=== PATIENT | female | born 1955 | race Caucasian/White ===

== ENCOUNTER 2023-11-28 10:51 | Outpatient (OUT) | payer MEDICARE, SELFPAY ==
--- NOTE | 2023-11-28 10:59 | MM_ITS ---
Patient Name: KWAME AMAYA MR#: [id number] : 1955 Exam Date: 11/28/2023 Ordering Doctor: DR Emilee Mobley M.D. RADIOLOGY REPORT PROCEDURE: MM TOMOSYNTHESIS SCREENING BI COMPARISON: None. INDICATIONS: Screening Calculator Name NCI Breast Cancer Risk Assessment Tool 5 Year Breast Cancer Risk 1.70% Lifetime Breast Cancer Risk 5.90% Personal Breast Cancer No Personal Ovarian Cancer No Treatments None Family Cancers None LOCATION: [facility] BREAST COMPOSITION: There are scattered areas of fibroglandular density. FINDINGS: DIAGNOSTIC CATEGORY 0--INCOMPLETE: NEED ADDITIONAL IMAGING EVALUATION. Breasts are medium in size. RIGHT BREAST: Single area focal asymmetry upper outer quadrant, mid posterior breast. LEFT BREAST: 2 areas of focal asymmetry upper outer quadrant, mid and posterior breast. Spot compression of the 3 areas of asymmetry are recommended, this likely represents asymmetric fibroglandular tissue. If these areas do not compress out, ultrasound follow-up would be required. RECOMMENDATIONS: ADDITIONAL MAMMOGRAPHIC VIEWS REQUIRED: BILATERAL BREASTS - spot compression views ULTRASOUND: BILATERAL BREASTS PLEASE NOTE: A NORMAL MAMMOGRAM DOES NOT EXCLUDE THE POSSIBILITY OF BREAST CANCER. A CLINICALLY SUSPICIOUS PALPABLE LUMP SHOULD BE BIOPSIED. Dictated by: David Barron MD on 11/28/2023 at 11:42 Approved by: David Barron MD on 11/28/2023 at 11:44
== END 2023-11-28 10:52 | disposition home or self-care (01) ==
LOC: MAMMO 10:54
PROVIDERS: PCP Family Medicine; Visit Provider Family Medicine
DX: Z12.31 Encounter for screening mammogram for malignant neoplasm of breast (principal); R92.8 Other abnormal and inconclusive findings on diagnostic imaging of breast
CPT/HCPCS: 77063; 77067

== ENCOUNTER 2023-12-18 13:25 | Outpatient (OUT) | payer MEDICARE, SELFPAY ==
--- NOTE | 2023-12-18 13:30 | US_ITS ---
Patient Name: KWAME AMAYA MR#: [id number] : 1955 Exam Date: 12/18/2023 Ordering Doctor: DR Emilee Mobley M.D. RADIOLOGY REPORT PROCEDURE: MM DIAGNOSTIC MAMMO BI, 12/18/2023, 13:31 US BREAST BI LIMITED, 12/18/2023, 14:24 COMPARISON: MM TOMOSYNTHESIS SCREENING BI, 11/28/2023. INDICATIONS: Abnormal mammogram of both breasts R92.8 Calculator Name NCI Breast Cancer Risk Assessment Tool 5 Year Breast Cancer Risk 1.70% Lifetime Breast Cancer Risk 5.90% Personal Breast Cancer No Personal Ovarian Cancer No Treatments None Family Cancers None LOCATION: [facility] BREAST COMPOSITION: There are scattered areas of fibroglandular density. FINDINGS: DIAGNOSTIC CATEGORY 2--BENIGN FINDING: RIGHT BREAST: Spot magnification views demonstrate persistence of asymmetric density within the posterior upper-outer quadrant suspected to represent residual fibroglandular tissue. Ultrasound evaluation demonstrates normal appearing fibroglandular tissue within the upper-outer quadrant. LEFT BREAST: Spot magnification views demonstrate persistence of asymmetric density within the posterior upper-outer quadrant suspected to represent residual fibroglandular tissue. Ultrasound evaluation demonstrates normal appearing fibroglandular tissue within the upper-outer quadrant. RECOMMENDATIONS: ROUTINE MAMMOGRAM AND CLINICAL EVALUATION IN 12 MONTHS. PLEASE NOTE: A NORMAL MAMMOGRAM DOES NOT EXCLUDE THE POSSIBILITY OF BREAST CANCER. A CLINICALLY SUSPICIOUS PALPABLE LUMP SHOULD BE BIOPSIED. Dictated by: Jacob Gray M.D. on 12/18/2023 at 16:19 Approved by: Jacob Gray M.D. on 12/18/2023 at 16:23
== END 2023-12-18 13:26 | disposition home or self-care (01) ==
LOC: MAMMO 13:25
PROVIDERS: PCP Family Medicine; Visit Provider Family Medicine
DX: R92.8 Other abnormal and inconclusive findings on diagnostic imaging of breast (principal)
CPT/HCPCS: 76642; 77066

== ENCOUNTER 2024-02-11 11:36 | Outpatient (OUT) | payer MEDICARE, SELFPAY ==
--- NOTE | 2024-02-11 11:41 | XR_ITS ---
The [address] [address] Patient Name: KWAME AMAYA MRN: [id number] date: 1955 Sex: F Assigned Patient Location: [facility] Current Patient Location: Accession/Order Number: [id number] Exam Date: 02/11/2024 11:48 Report Date: 02/12/2024 06:29 At the request of: ROBERT ARRIETA Procedure: XR thoracic spine 3V EXAMINATION: XR thoracic spine 3V HISTORY: Thoracic Radiculitis M54.14 ; left chest and upper back pain for 5 months; no known injury COMPARISON: No relevant comparison available. FINDINGS: BONES: No significant spondylosis, scoliosis, fracture, or visible bony lesion. DISC SPACES: No significant disc height narrowing, subluxation, or endplate abnormality. PARASPINOUS: Negative. No paraspinous abnormality is seen. OTHER: Opacities within posterior lung base with loss of one of the posterior costophrenic angles. XR/XR thoracic spine 3V IMPRESSION: 1. No acute bone abnormality. Minimal degenerative changes. 2. Loss of one of the posterior costophrenic angles on the lateral view of uncertain etiology; infiltrates versus mass versus elevated diaphragm. Consider PA and lateral chest radiographs for further evaluation. Electronically authenticated by: NGOC BARBA Date: 02/12/2024 06:29
--- OUTSIDE RECORDS SUMMARY | 2024-02-11 11:42 | XMS_ITS | CCD ---
Author Organization [facility] Care Team Providers Care Network Professional Name Role Phone Gideon VELASQUEZ Attending Unavailable MEENAKSHI, DR EMILEE Ohara Primary Care Unavailable PAY, DR TAYLOR Admitting Unavailable PAY, DR TAYLOR Attending Unavailable PAY, DR TAYLOR Consulting Unavailable MD Emilee Arrieta Primary Care Provider [phone] MD Emilee Arrieta Attending Provider [phone] Allison Iglesias Unavailable MD Emilee Arrieta Primary Care Provider [phone] YAYA Iglesias Attending Provider MD Emilee Arrieta Primary Care Provider YAYA Iglesias Attending Provider Emilee Arrieta Primary Care Unavailable Emilee Arrieta Admitting Unavailable Emilee Arrieta Attending Unavailable Emilee Arrieta Primary Care Unavailable Allison Iglesias Attending Unavailable Allison Iglesias Admitting Unavailable Emilee Arrieta Primary Care Unavailable Allison Iglesias Attending Unavailable Allison Iglesias Admitting Unavailable Allergies Allergy Classification Reported Allergen(s) Allergy Type Date of Onset Reaction(s) Facility (1 source) Contrast media; Translations: [Contrast Dye] Propensity to adverse reactions (disorder) [facility] Repository (1 source) Iodine (And Iodine Containting Drugs) Drug allergy (disorder) [facility] Repository Medications Current Medications Medication Drug Class(es) Dates Sig (Normalized) Sig (Original) amLODIPine 2.5 mg oral tablet (6 sources) Dihydropyridine Calcium Channel Kav[employer] Start: 12-01-2023 take 1 tablet by mouth once daily Amlodipine Active 0 .ROUTE .COMPLEX 90 December 01, 2023 3:05pm TAKE 1 TABLET BY MOUTH EVERY DAY Start: 10-24-2023 End: 12-01-2023 take 1 tablet by mouth once daily Amlodipine Discontinued 1 TAB PO Daily October 24, 2023 12:00am December 01, 2023 3:05pm FreeTextSig: TAKE 1 TABLET BY MOUTH EVERY DAY; Note: Source Status: Start; Refills: 1; Qty: 90 Tablet; Provider: Meenakshi Hebert ( ) take 1 tablet by robel th once daily amLODIPine Besylate 2.5 MG TAKE 1 TABLET BY MOUTH EVERY DAY for 90 Active aspirin 81 mg chewable tablet (8 sources) Platelet Aggregation Inhibitor, Nonsteroidal Anti-inflammatory Drug Start: 10-08-2023 Aspirin Active PO October 08, 2023 12:00am Start: 04-14-2023 take 1 tablet by robel th every twenty-four hours Aspirin 81 MG 1 tablet Orally Once a day for 90 days Apr, Active Start: 01-06-2023 take 1 tablet by mouth once da tree Aspirin 81 81 MG 1 tablet Orally Once a day for 30 days Dec, Active Start: 01-06-2023 take 1 tablet by robel th every twenty-four hours Aspirin 81 81 MG 1 tablet Orally Once a day for 30 days Dec, Active atorvastatin 20 mg oral tablet (12 sources) HMG-CoA Reductase Inhibitor Start: 10-08-2023 take 1 tablet by mouth once daily Atorvastatin Active 0 .ROUTE .COMPLEX 90 October 08, 2023 4:08pm TAKE 1 TABLET BY MOUTH EVERY DAY FOR 90 DAYS Start: 10-08-2023 End: 10-08-2023 Atorvastatin Discontinued MG PO October 08, 2023 12:00am October 08, 2023 4:08pm Start: 01-06-2023 take 1 tablet by robel th every twenty-four hours Atorvastatin Calcium 20 MG 1 tablet Orally Once a day for 90 days Apr, Active cilostazol 50 mg oral tablet (5 sources) Phosphodiesterase 3 Inhibitor Start: 10-24-2023 take 1 tablet by mouth twice daily 30 minutes after breakfast Cilostazol Active 50 MG PO Before breakfast and supper October 24, 2023 12:00am FreeTextSi tablet 30 minutes before or 2 hours after breakfast and dinner Orally Twice a day; Note: Source Status: Start; Refills: 3; Qty: 90 Tablet; Provider: Harris Cooper ( ) Start: 01-06-2023 take 1 tablet by robel th every twelve hours Cilostazol 50 MG 1 tablet 30 minutes before or 2 hours after breakfast and dinner Orally Twice a day for 30 days Dec, Active latanoprost 0.05 mg/ml ophthalmic solution (6 sources) Prostaglandin Analog Start: 01-22-2018 take 1 dose into the eye(s) once daily at bedtime Latanoprost Active 1 DOSE OPHTHALMIC Daily at bedtime January 22, 2018 12:00am lidocaine 0.05 mg/mg medicated patch (1 source) Antiarrhythmic, Amide Local Anesthetic Start: 02-11-2024 apply 1 dose topically once daily Lidocaine Active 2 PATCH TOPICAL Daily February 11, 2024 12:00am leave on most painful area for up to 12 hrs Completed/Discontinued Medications Medication Drug Class(es) Dates Sig (Normalized) Sig (Original) ofloxacin 3 mg/ml ophthalmic solution (6 sources) Quinolone Antimicrobial Start: 01-22-2018 End: 10-24-2023 take 1 dose into the eye(s) four times daily Ofloxacin Discontinued 1 DOSE OPHTHALMIC Four times daily January 22, 2018 12:00am October 24, 2023 1:30pm prednisoLONE acetate 10 mg/ml ophthalmic suspension (6 sources) Corticosteroid Start: 01-22-2018 End: 10-24-2023 take 1 dose into the eye(s) four times daily Prednisolone Acetate Discontinued 1 DOSE OPHTHALMIC Four times daily January 22, 2018 12:00am October 24, 2023 1:30pm pregabalin 50 mg oral capsule (2 sources) Start: 10-24-2023 End: 11-25-2023 take 1 capsule by mouth twice daily Pregabalin (Lyrica) 50 mg capsule Discontinued 50 MG PO Twice daily 60 October 24, 2023 12:00am November 25, 2023 11:50am valACYclovir 1000 mg oral tablet (4 sources) Herpesvirus Nucleoside Analog DNA Polymerase Inhibitor, Herpes Simplex Virus Nucleoside Analog DNA Polymerase Inhibitor, Herpes Zoster Virus Nucleoside Analog DNA Polymerase Inhibitor Start: 09-29-2023 End: 10-14-2023 Valacyclovir (Valtrex) 1 gram tablet Discontinued 1000 MG PO Every 8 hours September 29, 2023 12:00am October 14, 2023 9:26am Problems Active Problems Problem Classification Problem Date Documented Date Episodic/Chronic Anal and rectal conditions (5 sources) Other specified diseases of anus and rectum; Translations: [Rectal abscess] Onset: 05-10-2022 Episodic Anxiety disorders (1 source) Anxiety disorder; Translations: [Other specified anxiety disorders] Onset: 06-19-2016 Chronic Coronary atherosclerosis and other heart disease (1 source) Coronary atherosclerosis and other heart disease; Translations: [Atherosclerosis of [place] arteries of extremities with intermittent claudication, bilateral legs] Onset: 04-14-2023 Glaucoma (1 source) Unspecified glaucoma; Translations: [Unspecified glaucoma] Onset: 09-08-2015 Chronic Hemorrhoids (1 source) Hemorrhoids; Translations: [Unspecified hemorrhoids] Episodic Other aftercare (1 source) Other detention (current) drug therapy; Translations: [OTH DRY ROASTER CURRENT DRUG THERAPY] Onset: 05-13-2022 Episodic Other circulatory disease (1 source) Raynaud's syndrome without gangrene; Translations: [Raynaud's syndrome without gangrene] Chronic Other connective tissue disease (1 source) Neuralgia and neuritis, unspecified; Translations: [Neuralgia and neuritis, unspecified] Episodic Other injuries and conditions due to external causes (1 source) History of fall; Translations: [History of falling] Episodic Other nutritional; endocrine; and metabolic disorders (1 source) Body mass index less than 20; Translations: [Body mass index (BMI) 19.9 or less, adult] Episodic Other screening for suspected conditions (not mental disorders or infectious disease) (1 source) Mammography abnormal; Translations: [Other abnormal and inconclusive findings on diagnostic imaging of breast] 12-02-2023 Episodic Peripheral and visceral atherosclerosis (20 sources) Intermittent claudication; Translations: [Peripheral vascular disease, unspecified] Onset: 11-21-2022 Chronic Residual codes; unclassified (1 source) Procedure not done; Translations: [Procedure and treatment not carried out because of patient's decision for unspecified reasons] Episodic Spondylosis; intervertebral disc disorders; other back problems (2 sources) Thoracic radiculitis; Translations: [Radiculopathy, thoracic region] 02-11-2024 Episodic Substance-related disorders (11 sources) Smokes tobacco daily; Translations: [Nicotine dependence, unspecified, uncomplicated] Onset: 11-26-2018 Chronic Thyroid disorders (1 source) Non-toxic uninodular goiter; Translations: [Nontoxic single thyroid nodule] Onset: 12-08-2018 Chronic Viral infection (8 sources) Herpes zoster; Translations: [Zoster without complications] 10-14-2023 Episodic Past or Other Problems Problem Classification Problem Date Documented Da te Episodic/Chronic Nonspecific chest pain (1 source) Chest pain, unspecified; Translations: [Chest pain, unspecified] Onset: 07-09-2017 Episodic Unclassified (1 source) Routine general medical examination at health care facility; Translations: [Routine general medical examination at health care facility] Onset: 09-08-2015 Results Test Name Value Interpretation Reference Range Facil ity US ankle/arm indiceson 10-13 US ankle/arm indices [facility] [place] [address] [place] [address] Ultrasound Report Signed Patient: Ellie Montaño MR#: [id number] 899 : 1955 Acct:[id number] Age/Sex: 68 / F ADM Date: 10/14/23 Loc: [facility] Room: Type: [facility] Attending Dr: Allison Iglesias 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 Pressures at the right ankle are 131 using the posterior tibial artery, and 126 using the dorsalis pedis artery with ankle-brachial index of 1.08 1.04 . Pressures at the left ankle are 106 using the posterior tibial artery, and 98 with ankle-brachial index of 0.88 0.81 . Wave forms by plethysmography are normal.On the right and moderately blunted on the left US/US ankle/arm indices IMPRESSION: No hemodynamically significant peripheral vascular occlusive disease at rest in the right lower extremity. Mild to moderate peripheral vascular occlusive disease of the left lower extremity at rest. Impression dictated by: Mark Bray M.D.10/14/2023 9:33 AM Dictation Location: [place] [address] Tech: Abril Barbour Transcribed By: RUBY 10/14/23932 Dictated By: Mark Bray MD 10/14/23932 Signed By: 10/14/23932 [facility] US ankle/arm indiceson 04-14 US ankle/arm indices [facility] [place] [address] [place] [address] Ultrasound Report Signed Patient: Ellie Montaño MR#: [id number] 899 : 1955 Acct:[id number] Age/Sex: 67 / F ADM Date: 04/14/23 Loc: [facility] Room: Type: [facility] Attending Dr: Allison Iglesias [employer] MISTRESS-C Ordering Provider: Allison Iglesias APRN Date of Service: 04/14/23 US/US ankle/arm indices: I70.213 Copies to: Allison Iglesias APRN LOWER EXTREMITY SEGMENTAL ARTERIAL DOPSCAN (PVR) INDICATION: Known peripheral vascular occlusive disease PROCEDURE: Right arm blood pressure is 91 , left is 139 . Pressures at the right ankle are 145 using the posterior tibial artery, and 137 using the dorsalis pedis artery with ankle-brachial index of 1.04 0.99 . Pressures at the left ankle are 75 using the posterior tibial artery, and 53 with ankle-brachial index of 0.54 0.38 . Wave forms by plethysmography are strongly pulsatile right and moderate to severely left US/US ankle/arm indices IMPRESSION: Normal ankle-brachial index in the right lower extremity with no hemodynamically significant peripheral vascular occlusive disease at rest. Moderate to severe peripheral vascular occlusive disease in the left lower extremity at rest. Impression dictated by: [place] Bray M.D.04/14/2023 2:43 PM Dictation Location: [facility] Tech: Luda Yousif Transcribed By: RUBY 04/14/231442 Dictated By: [place] Bray MD 04/14/231441 Signed By: 04/14/231442 [facility] US arterial pvr rest Joanne US arterial pvr rest LE [facility] [place] [address] Ultrasound Report Signed Patient: Ellie Montaño MR#: [id number] 899 : 1955 Acct:[id number] Age/Sex: 67 / F ADM Date: 11/21/22 Loc: Room: Type: [facility] Attending Dr: Emilee Arrieta MD Ordering Provider: Emilee Arrieta MD Date of Service: 11/21/22 US/US arterial pvr rest LE: Claudication of calf muscles Copies to: Emilee Arrieta MD LOWER EXTREMITY SEGMENTAL ARTERIAL DOPSCAN (PVR) INDICATION: Cold feet, leg numbness PROCEDURE: Right arm blood pressure is 105 , left is 155 . Pressures throughout the right leg are 158 at the high thigh, 156 at the low thigh, 146 at the calf, 148 at the ankle using the posterior tibial artery and 146 at the ankle using the dorsalis pedis artery with ankle- brachial index of 0.94 0.95 . Pressures throughout the left leg are 154 at the high thigh, 98 at the low thigh, 100 at the calf, 70 at the ankle using the posterior tibial artery and 51 at the ankle using the dorsalis pedis artery with ankle-brachial index of 0.33 0.45 . Wave forms by plethysmography are biphasic in the left lower extremity and triphasic in the right lower extremity. US/US arterial pvr rest LE IMPRESSION: MODERATE PERIPHERAL ARTERIAL DISEASE OF THE LEFT LOWER EXTREMITY AT REST. THE PATIENT IS MOST LIKELY TO HAVE FEMOROPOPLITEAL DISEASE OF THE LEFT LOWER EXTREMITY. Impression dictated by: John Bell MD11/25/2022 2:52 PM Dictation Location: [place] [address] Tech: Hailey Haddad Transcribed By: RUBY 11/25/221451 Dictated By: John Bell MD 11/25/221450 Signed By: 11/25/22 145 [facility] ED Note-Physicianon 05-20-20 ED Note-Physician [id number]:[id number] Normal [facility] Vital Signs Date Time Vital Sign Value Performing Clinician Facility 02-11-2024 10:54-0400 Body height 162.56 cm [facility] 02-11-2024 10:54-0400 Body mass index (BMI) [Ratio] 19 kg/m2 [facility] 02-11-2024 10:54-0400 Body weight 50.34 kg [facility] 02-11-2024 10:54-0400 Diastolic blood pressure 74 mm[Hg] [facility] 02-11-2024 10:54-0400 Heart rate 115 /min [facility] 02-11-2024 10:54-0400 Systolic blood pressure 118 mm[Hg] [facility] 11-25-2023 11:44-0400 Body height 162.56 cm [facility] 11-25-2023 11:44-0400 Body mass index (BMI) [Ratio] 19.9 kg/m2 [facility] 11-25-2023 11:44-0400 Body weight 52.61 kg [facility] 11-25-2023 11:44-0400 Diastolic blood pressure 82 mm[Hg] [facility] 11-25-2023 11:44-0400 Heart rate 91 /min [facility] 11-25-2023 11:44-0400 Systolic blood pressure 130 mm[Hg] [facility] 10-24-2023 13:24-0400 Body height 162.56 cm MD Emilee Arrieta Work Phone: [facility] 10-24-2023 13:24-0400 Body mass index (BMI) [Ratio] 19.9 kg/m2 MD Emilee Arrieta Work Phone: [facility] 10-24-2023 13:24-0400 Body weight 52.67 kg MD Emilee Arrieta Work Phone: [facility] 10-24-2023 13:24-0400 Diastolic blood pressure 78 mm[Hg] MD Emilee Arrieta Work Phone: [facility] 10-24-2023 13:24-0400 Heart rate 110 /min MD Emilee Arrieta Work Phone: [facility] 10-24-2023 13:24-0400 SaO2% (BldA) [Mass fraction] 99 % MD Emilee Arrieta Work Phone: [facility] 10-24-2023 13:24-0400 Systolic blood pressure 132 mm[Hg] MD Emilee Arrieta Work Phone: [facility] 10-14-2023 09:23-0400 Body height 162.56 cm MD Emilee Arrieta Work Phone: [facility] 10-14-2023 09:23-0400 Body mass index (BMI) [Ratio] 19.7 kg/m2 MD Emilee Arrieta Work Phone: [facility] 10-14-2023 09:23-0400 Body temperature 98 [degF] MD Emilee Arrieta Work Phone: [facility] 10-14-2023 09:23-0400 Body weight 52.16 kg MD Emilee Arrieta Work Phone: [facility] 10-14-2023 09:23-0400 Diastolic blood pressure 82 mm[Hg] MD Emilee Arrieta Work Phone: [facility] 10-14-2023 09:23-0400 Heart rate 70 /min MD Emilee Arrieta Work Phone: [facility] 10-14-2023 09:23-0400 SaO2% (BldA) [Mass fraction] 97 % MD Emilee Arrieta Work Phone: [facility] 10-14-2023 09:23-0400 Systolic blood pressure 140 mm[Hg] MD Emilee Arrieta Work Phone: [facility] 04-14-2023 09:30-0400 Body height 165.1 cm Allison Iglesias Other [email or web address] [facility] [employer] Other 04-14-2023 09:30-0400 Body mass index (BMI) [Ratio] 17.47 kg/m2 Allison Iglesias Other [facility] Other 04-14-2023 09:30-0400 Body temperature 96.4 [degF] Allison Wildo Other [facility] Other 04-14-2023 09:30-0400 Body weight 47.63 kg Allison Wildo Other [facility] Other 04-14-2023 09:30-0400 Diastolic blood pressure 74 mm[Hg] Allison Wildo Other [facility] Other 04-14-2023 09:30-0400 SaO2% (BldA) [Mass fraction] 99 % Allison Wildo Other [facility] Other 04-14-2023 09:30-0400 Systolic blood pressure 110 mm[Hg] Allison Wildo Other [facility] Other 01-06-2023 13:30-0400 Body height 165.1 cm Allison Iglesias Other [facility] Other 01-06-2023 13:30-0400 Body mass index (BMI) [Ratio] 17.47 kg/m2 Allison Wildo Other [facility] Other 01-06-2023 13:30-0400 Body temperature 97.3 [degF] Allison Wildo Other [facility] Other 01-06-2023 13:30-0400 Body weight 47.63 kg Allison Wildo Other [facility] Other 01-06-2023 13:30-0400 Diastolic blood pressure 80 mm[Hg] Allison Iglesias Other [email or web address] [facility] Other 01-06-2023 13:30-0400 SaO2% (BldA) [Mass fraction] 99 % Allison Iglesias Other [facility] Other 01-06-2023 13:30-0400 Systolic blood pressure 122 mm[Hg] Allison Iglesias Other [facility] Other Encounters Encounter Date Encounter Type Care Provider Facility Start: 02-11-2024 End: 02-11-2024 ambulatory [facility] Work Phone: Start: 02-11-2024 End: 02-11-2024 Patient encounter procedure Pending [facility] To [facility] Work Phone: Start: 11-25-2023 End: 11-25-2023 Patient encounter procedure Pending [facility] To [facility] Work Phone: Start: 10-24-2023 End: 10-24-2023 ambulatory MD Emilee Arrieta Work Phone: [facility] Work Phone: Start: 10-24-2023 End: 10-24-2023 Patient encounter procedure MD Emilee Arrieta Work Phone: [facility] Work Phone: Start: 10-14-2023 End: 10-14-2023 ambulatory Emilee Arrieta Facility:[facility] Start: 10-14-2023 End: 10-14-2023 ambulatory MD Emilee Arrieta Work Phone: [facility] Work Phone: Start: 10-14-2023 End: 10-14-2023 Patient encounter procedure MD Emilee Arrieta Work Phone: [facility] Work Phone: Start: 10-08-2023 Non-patient / Non-visit MD Kristy Arrieta Work Phone: [facility]ending [facility] To [facility] [employer] Work Phone: Start: 04-14-2023 End: 04-14-2023 Patient encounter procedure Allison Harris Other [facility] Start: 04-14-2023 End: 04-14-2023 ambulatory Emilee Arrieta Facility:[facility] Start: 04-14-2023 End: 04-14-2023 ambulatory MD Emilee Arrieta Work Phone: [facility] [employer] Other Start: 01-06-2023 End: 01-06-2023 ambulatory Allison Iglesias Other [facility] [employer] Other Start: 01-06-2023 [facility] visit new patient Allison Healycameron lee [facility] Start: 01-06-2023 Telephone encounter Allison Macdonald PG Assistant [employer] Start: 11-21-2022 End: 11-21-2022 ambulatory Emilee Arrieta Facility:[facility] Start: 11-21-2022 End: 11-21-2022 ambulatory MD Emilee Arrieta Work Phone: [facility] Work Phone: Start: 11-21-2022 End: 11-21-2022 Patient encounter procedure MD Emilee Arrieta Work Phone: [facility] [place] Work Phone: Start: 05-24-2022 ambulatory Gideon VELASQUEZ Facility : [place] Start: 05-10-2022 End: 05-10-[address] EMILEE ARRIETA Facility: Start: 02-08-2022 Adult health examination Allison Harris Other [facility] Other Procedures Date Procedure Procedure Detail Performing Clinician Start: 10-14-2023 Ankle brachial press ure index MD Emilee Arrieta Work Phone: Start: 04-14-2023 Ankle brachial press ure index MD Emilee Arrieta Work Phone: Plan of Treatment Date Care Activity Detail Author Start: 11-21-2022 Pulse volume recorder pneumoplethysmography US arterial pvr rest [facility] XR Thoracic spine 3 Views [facility] Payers Date Payer Category Payer Self-pay [id number] 1958 Medicaid [id number] 1958 Unknown [id number] 1955 Unknown [id number] 1955 Unknown [id number] [id number] Unknown [id number] Unknown [id number] [id number] Unknown [id number] Social History Date Type Detail Facility Start: 01-22-2018 End: 10-14-2023 Tobacco smoking status IAIS Smoker (finding) [facility] Start: 1955 Sex Assigned At Female F [facility] Sex Assigned At Sex Assigned At Bir th [facility] Other Medical Equipment Procedure Code Equipment Code Equipment Original Text Equipment Identifier Dates Phacoemulsification of cataract with intraocular lens implantation LENS ACRYSOF IOL [id number] FDA Start: 01-22-2018 Phacoemulsification of cataract with intraocular lens implantation LENS ACRYSOF IOL [id number] FDA Start: 01-22-2018 Phacoemulsification of cataract with intraocular lens implantation LENS ACRYSOF IOL [id number] FDA Start: 01-22-2018 Phacoemulsification of cataract with intraocular lens implantation LENS ACRYSOF IOL [id number] FDA Start: 01-22-2018 Phacoemulsification of cataract with intraocular lens implantation LENS ACRYSOF IOL [id number] FDA Start: 01-22-2018 Phacoemulsification of cataract with intraocular lens implantation LENS ACRYSOF IOL [id number] FDA Start: 01-22-2018 Evaluation note 04-14-2023 Note Date & Type Note Facility 04-14-2023 Evaluation note Encounter Date Diagnosis Assessment Notes Apr, Current every day smoker (ICD-10 - F17.200) We discussed the health risks associated with tobacco smoking. She understands her risks and is motivated to quit. She is working on her smoking cessation. Apr, PAD (peripheral artery disease) (ICD-10 - I73.9) We reviewed her noninvasive arterial studies in the office today which do show some improvement with left MAGALYS improved to 0.54 from 0.45 about 3 months ago. She has been working on her walking program and has been taking the cilostazol, aspirin, and statin medications. Medication refills were sent to her pharmacy. She has noticed improvement in her symptoms and is able to walk 2-3 times further than she was 3 months ago prior to onset of thigh claudication. She denies any ischemic rest pain. She has no tissue loss. She is working on her smoking cessation. At this juncture, we will continue to follow her along and manage her medically and see her again in 6 months time with repeat noninvasive arterial studies. She knows to call us in the meantime with any issues or concerns whatsoever. Apr, Claudication (ICD-10 - I73.9) [facility] Other Evaluation note 01-06-2023 Note Date & Type Note Facility 01-06-2023 Evaluation note Encounter Date Diagnosis Assessment Notes Dec, Intermittent claudication (ICD-10 - I73.9) This patient complains of symptoms of claudication walking only about 50 yards prior to onset. She tells me this has been present for about 3 months now. She is not currently on any antiplatelet or statin therapy. We will get her started on this for good medical management of her PAD. We will also attempt use of Pletal to aid in relief of her claudication. We will get her started on working on her walking program as well. We will follow her up again in about 3 months time with repeat noninvasive arterial studies and see how she is doing. We reviewed the PAD handout and all questions were addressed. She verbalizes understanding of all discussion, agrees with plan, denies any questions. Dec, PAD (peripheral artery disease) (ICD-10 - I73.9) Dec, Current every day smoker (ICD-10 - F17.200) We discussed the health risks associated with tobacco smoking. Patient understands her risks and is motivated to quit. She has been working on smoking cessation and is down to about 5 cigarettes a day. [employer] Other Evaluation note Note Date & Type Note Facility Evaluation note No assessment information availa [facility] Work Phone: Evaluation note Note Date & Type Note Facility Evaluation note No Information [facility] [email or web address] Other Evaluation note Note Date & Type Note Facility Evaluation note Diagnosis Onset Date Current every day smoker acu te PAD (peripheral artery disease) acute [facility] Work Phone: Evaluation note Note Date & Type Note Facility Evaluation note Diagnosis Onset Date Current every day smoker acu te PAD (peripheral artery disease) acute Post herpetic neuralgia acut e [facility] Work Phone: Evaluation note Note Date & Type Note Facility Evaluation note Diagnosis Onset Date Post herpetic neuralgia acut e Thoracic radiculitis acute [facility] Work Phone: History general Narrative - Reported Note Date & Type Note Facility History general Narrative - Reported Type Medical History hypotension [employer] Other History general Narrative - Reported Note Date & Type Note Facility History general Narrative - Reported Type Medical History hypotension Medical History PAD Surgical History Problem Title : past surgical history reviewed, Problem Description : past surgical history reviewed, Problem Comment : reviewed - no changes required, Problem Status : Active, Surgical History Problem Title : surg ical procedures, hx of, Problem Description : surgical procedures, hx of, Problem Comment : L knee surgery 1999 (arthroscopic) , Problem Status : Active, Surgical History Problem Title : surg ical procedures, hx of, Problem Description : surgical procedures, hx of, Problem Comment : L knee surgery 1999 (arthroscopic) Cataract surgery 10/2015 R Cataract surgery 01/2018, Problem Status : Active, Surgical History Problem Title : surg ical procedures, hx of, Problem Description : surgical procedures, hx of, Problem Comment : L knee surgery 1999 (arthroscopic) Cataract surgery 10/2015, Problem Status : Active, [employer] Other Summary Purpose Family History Relationship Condition Age at Onset Recorded Date/T jimmy father Unknown Heart disease Unknown Not Specified Unknown Relationship Condition Age at Onset Recorded Date/T jimmy father Unknown Heart disease Unknown mother Unknown Advance Directives Advance Directive Response Recorded Date/ Time Advance Directives No January 21 10:08am Chief Complaint and Reason for Visit Chief Complaint i73.9 Chief Complaint I70.213 Chief Complaint Amb Documentation 6 MONTH F/U PAD; MAGALYS 9AM I70.213 Chief Complaint Amb Documentation 6 MONTH F/U PAD; MAGALYS 9AM I70.213 Reason for Visit Current every day sm oker PAD (peripheral artery disease) Chief Complaint Amb Documentation 6 MONTH F/U PAD; MAGALYS 9AM I70.213 shingles on right breast Reason for Visit Current every day sm oker PAD (peripheral artery disease) Post herpetic neuralgia Chief Complaint issues with shingles still left breast flair up Reason for Visit Post herpetic neural ivy Thoracic radiculitis Additional Source Comments INFORMATION SOURCE (unrecogn ized section and content) DATE CREATED AUTHOR [facility]/20/2022 [facility] DATE CREATED AUTHOR AUTHOR'S ORGANIZ ATION 06/26/[address] [facility] DATE CREATED AUTHOR AUTHOR'S ORGANIZ ATION 10/15/2023 [facility] Care Teams (unrecognized sec tion and content) Team Status: Active Member Role Status Dates Emilee Arrieta MD Primary Care Provider Active Team Status: Inactive Member Role Status Dates Emilee Arrieta MD Primary Care Provide r, Attending Provider Active Start: November 25, 2023 End: November 25, 2023 Team Status: Inactive Member Role Status Dates Emilee Arrieta MD Primary Care Provide r, Attending Provider Active Start: February 11, 2024 End: February 11, 2024 Team Status: Active Member Role Status Dates Emilee Arrieta MD Primary Care Provider Active Team Status: Active Member Role Status Dates Emilee Arrieta MD Primary Care Provider Active Start: October 08, 2023 Malaika Machado Attending Provider Active Start: Dana 2023 Team Status: Inactive Member Role Status Dates Emilee Arrieta MD Primary Care Provider Active Start: October 14, 2023 End: October 14, 2023 Mark Bray MD Attending Provider Active S tart: October 14, 2023 End: October 14, 2023 Team Status: Active Member Role Status Dates Emilee Arrieta MD Primary Care Provider Active Start: October 14, 2023 Allison Iglesias NP-C Attending Provider Active Start: October 14, 2023 Team Status: Inactive Member Role Status Dates Emilee Arrieta MD Primary Care Provider, Attending P treva Active Team Status: Inactive Member Role Status Dates Emilee Arrieta MD Primary Care Provider Active Allison Iglesias NP-C Attending Provider Active Team Status: Inactive Member Role Status Dates Emilee Arrieta MD Primary Care Provider Active Start: October 14, 2023 End: October 14, 2023 YAYA Faust Attending Provider Active Start: October 14, 2023 End: October 14, 2023 Team Status: Inactive Member Role Status Lola Arrieta MD Primary Care Provide r, Attending Provider Active Start: October 24, 2023 End: October 24, 2023 Team Status: Inactive Member Role Status Dates Emilee Arrieta MD Primary Care Provide r, Attending Provider Active Start: November 25, 2023 End: November 25, 2023 Team Status: Inactive Member Role Status Lola Arrieta MD Primary Care Provide r, Attending Provider Active Start: February 11, 2024 End: February 11, 2024 Goals (unrecognized section and content) Goals may be documented in a n alternate sectionNo InformationNo InformationGoals may be documented in an alternate sectionNo InformationGoals may be documented in an alternate sectionGoals may be documented in an alternate sectionGoals may be documented in an alternate sectionGoals may be documented in an alternate section REASON FOR VISIT (unrecogniz ed section and content) CLAUDICATION OF CALF [facility] ascular surgery office note3 MONTH FOLLOW UP; MAGALYS'S BOTH LEGS 9A FOR RECORDS PERTAINING TO PATIENTS WHO ARE OR HAVE BEEN ENROLLED IN A CHEMICAL DEPENDENCY/SUBSTANCEABUSE PROGRAM, SOME INFORMATION MAY BE OMITTED. This clinical summary was aggregated from multiple sources. Caution should be exercised in using it in the provision of clinical care. This summary normalizes information from multiple sources, and as a consequence, information in this document may materially change the coding, format and clinical context of patient data. In addition, data may be omitted in some cases. CLINICAL DECISIONS SHOULD BE BASED ON THE PRIMARY CLINICAL RECORDS. [facility] [employer] [facility]. provides no warranty or guarantee of the accuracy or completeness of information in this document.
== END 2024-02-11 11:37 | disposition home or self-care (01) ==
LOC: RAD 11:37
PROVIDERS: PCP Family Medicine; Visit Provider Family Medicine
DX: M54.14 Radiculopathy, thoracic region (principal)
CPT/HCPCS: 72072

== ENCOUNTER 2024-02-13 14:18 | Outpatient (OUT) | payer MEDICARE, SELFPAY ==
--- NOTE | 2024-02-13 14:25 | XR_ITS ---
The [address] [address] Patient Name: KWAME AMAYA MRN: [id number] date: 1955 Sex: F Assigned Patient Location: [facility] Current Patient Location: Accession/Order Number: [id number] Exam Date: 02/13/2024 14:34 Report Date: 02/14/2024 06:49 At the request of: ROBERT ARRIETA Procedure: XR chest 2V EXAMINATION: XR chest 2V HISTORY: Left Sided Chest Pain R07.9 COMPARISON: No relevant comparison available. FINDINGS: LUNGS: No significant pulmonary parenchymal abnormalities. VASCULATURE: No increased pulmonary vasculature. PLEURA: No pneumothorax, effusion, or pleural thickening. CARDIAC: No cardiomegaly or cardiac silhouette abnormality. MEDIASTINUM: No visible mass or adenopathy. BONES: No fracture or visible bone lesion. OTHER: Negative. XR/XR chest 2V IMPRESSION: 1. Slightly hyperexpanded lungs. 2. No abnormal or suspicious findings to account for patient's symptoms. Electronically authenticated by: NGOC BARBA Date: 02/14/2024 06:49
--- OUTSIDE RECORDS SUMMARY | 2024-02-13 14:30 | XMS_ITS | CCD ---
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 Name Role Phone Gideon VELASQUEZ Attending Unavailable MEENAKSHI, DR EMILEE Ohara Primary Care Unavailable PAY, DR TAYLOR Admitting Unavailable PAY, DR TAYLOR Attending Unavailable PAY, DR TAYLOR Consulting Unavailable MD Emilee Arrieta Primary Care Provider [phone] MD Emilee Arrieta Attending Provider [phone] Allison Iglesias Unavailable MD Emilee Arrieta Primary Care Provider YAYA Iglesias Attending Provider MD Emilee Arrieta [...] [Contrast Dye] Propensity to adverse reactions (disorder) [facility] Repository (1 source) Iodine (And Iodine Containting Drugs) Drug allergy (disorder) [facility] Repository Medications Current Medications Medication Drug Class(es) [...] and other heart disease; Translations: [Atherosclerosis of [place] arteries of extremities with intermittent claudication, bilateral legs] Onset: 04-14-2023 Glaucoma (1 source) Unspecified glaucoma; Translations: [Unspecified glaucoma] Onset: 09-08-2015 Chronic Hemorrhoids (1 source) Hemorrhoids; Translations: [Unspecified hemorrhoids] Episodic Other aftercare (1 source) Other penitentiary (current) drug therapy; Translations: [OTH HALF-WAY CURRENT DRUG THERAPY] Onset: 05-13-2022 Episodic Other [...] US ankle/arm indiceson 10-13 US ankle/arm indices [facility] [place] [address] [place] [address] Ultrasound Report Signed Patient: Ellie Montaño MR#: [id number] : 1955 Acct:[id number] Age/Sex: 68 / F ADM Date: 10/14/23 Loc: [facility] Room: Type: [facility] Attending Dr: Allison Iglesias LINE PILOT-C Ordering Provider: Allison Iglesias APRN Date of [...] Mark Bray M.D.10/14/2023 9:33 AM Dictation Location: [place] [address] Tech: Abril Barbour Transcribed By: RUBY 10/14/23932 Dictated By: Mark Bray MD 10/14/23932 Signed By: 10/14/[address] [facility] US ankle/arm indiceson 04-14 US ankle/arm indices [facility] [place] [address] [place] [address] Ultrasound Report Signed Patient: Ellie Montaño MR#: [id number] 899 : 1955 Acct:[id number] Age/Sex: 67 / F ADM Date: 04/14/23 Loc: [facility] Room: Type: [facility] Attending Dr: Allison Iglesias LINE PILOT-C Ordering Provider: Allison Iglesias APRN Date of [...] Mark Bray M.D.04/14/2023 2:43 PM Dictation Location: [facility] Tech: Luda Yousif Transcribed By: RUBY 04/14/231442 Dictated By: Mark Bray MD 04/14/231441 Signed By: 04/14/231442 [facility] US arterial pvr rest Joanne US arterial pvr rest LE [facility] [place] [address] Ultrasound Report Signed Patient: Ellie Montaño MR#: [id number] 899 : 1955 Acct:[id number] Age/Sex: 67 / F ADM Date: 11/21/22 Loc: Room: Type: [facility] Attending Dr: Emilee Arrieta MD Ordering Provider: [...] John Bell MD11/25/2022 2:52 PM Dictation Location: [place] [address] Tech: Hailey Haddad Transcribed By: RUBY 11/25/221451 Dictated By: John Bell MD 11/25/221450 Signed By: 11/25/[address] [facility] ED Note-Physicianon 05-20-20 ED Note-Physician [id number]:[id number] Normal [facility] Vital Signs Date Time Vital Sign Value Performing Clinician Facility 02-11-2024 10:54-0400 Body height 162.56 cm [facility] 02-11-2024 10:54-0400 Body mass index (BMI) [Ratio] 19 kg/m2 [facility] 02-11-2024 10:54-0400 Body weight 50.34 kg [facility] 02-11-2024 10:54-0400 Diastolic blood pressure 74 mm[Hg] [facility] 02-11-2024 10:54-0400 Heart rate 115 /min [facility] 02-11-2024 10:54-0400 Systolic blood pressure 118 mm[Hg] [facility] 11-25-2023 11:44-0400 Body height 162.56 cm [facility] 11-25-2023 11:44-0400 Body mass index (BMI) [Ratio] 19.9 kg/m2 [facility] 11-25-2023 11:44-0400 Body weight 52.61 kg [facility] 11-25-2023 11:44-0400 Diastolic blood pressure 82 mm[Hg] [facility] 11-25-2023 11:44-0400 Heart rate 91 /min [facility] 11-25-2023 11:44-0400 Systolic blood pressure 130 mm[Hg] [facility] 10-24-2023 13:24-0400 Body height 162.56 cm MD Emilee Arrieta Work Phone: [facility] 10-24-2023 13:24-0400 Body mass index (BMI) [Ratio] 19.9 kg/m2 MD Emilee Arrieta Work Phone: [facility] 10-24-2023 13:24-0400 Body weight 52.67 kg MD Emilee Arrieta Work Phone: [facility] 10-24-2023 13:24-0400 Diastolic blood pressure 78 mm[Hg] MD Emilee Arrieta Work Phone: [facility] 10-24-2023 13:24-0400 Heart rate 110 /min MD Emilee Arrieta Work Phone: [facility] 10-24-2023 13:24-0400 SaO2% (BldA) [Mass fraction] 99 % MD Emilee Arrieta Work Phone: [facility] 10-24-2023 13:24-0400 Systolic blood pressure 132 mm[Hg] MD Emilee Arrieta Work Phone: [facility] 10-14-2023 09:23-0400 Body height 162.56 cm MD Emilee Arrieta Work Phone: [facility] 10-14-2023 09:23-0400 Body mass index (BMI) [Ratio] 19.7 kg/m2 MD Emilee Arrieta Work Phone: [facility] 10-14-2023 09:23-0400 Body temperature 98 [degF] MD Emilee Arrieta Work Phone: [facility] 10-14-2023 09:23-0400 Body weight 52.16 kg MD Emilee Arrieta Work Phone: [facility] 10-14-2023 09:23-0400 Diastolic blood pressure 82 mm[Hg] MD Emilee Arrieta Work Phone: [facility] 10-14-2023 09:23-0400 Heart rate 70 /min MD Emilee Arrieta Work Phone: [facility] 10-14-2023 09:23-0400 SaO2% (BldA) [Mass fraction] 97 % MD Emilee Arrieta Work Phone: [facility] 10-14-2023 09:23-0400 Systolic blood pressure 140 mm[Hg] MD Emilee Arrieta Work Phone: [facility] 04-14-2023 09:30-0400 Body height 165.1 cm Allison Iglesias Other [facility] [employer] Other 04-14-2023 09:30-0400 Body mass index (BMI) [Ratio] 17.47 kg/m2 Allison Iglesias Other [employer] Other 04-14-2023 09:30-0400 Body temperature 96.4 [degF] Allison Wildo Other [employer] Other 04-14-2023 09:30-0400 Body weight 47.63 kg Allison Wildo Other [employer] Other 04-14-2023 09:30-0400 Diastolic blood pressure 74 mm[Hg] Allison Wildo Other [employer] Other 04-14-2023 09:30-0400 SaO2% (BldA) [Mass fraction] 99 % Allison Wildo Other [employer] Other 04-14-2023 09:30-0400 Systolic blood pressure 110 mm[Hg] Allison Wildo Other [employer] Other 01-06-2023 13:30-0400 Body height 165.1 cm Allison Iglesias Other [employer] Other 01-06-2023 13:30-0400 Body mass index (BMI) [Ratio] 17.47 kg/m2 Allison Wildo Other [employer] Other 01-06-2023 13:30-0400 Body temperature 97.3 [degF] Allison Wildo Other [employer] Other 01-06-2023 13:30-0400 Body weight 47.63 kg Allison Wildo Other [employer] Other 01-06-2023 13:30-0400 Diastolic blood pressure 80 mm[Hg] Allison Iglesias Other [facility] [employer] Other 01-06-2023 13:30-0400 SaO2% (BldA) [Mass fraction] 99 % Allison Iglesias Other [employer] Other 01-06-2023 13:30-0400 Systolic blood pressure 122 mm[Hg] Allison Iglesias Other [employer] Other Encounters Encounter Date Encounter Type Care Provider Facility Start: 02-11-2024 End: 02-11-2024 ambulatory [facility] Work Phone: Start: 02-11-2024 End: 02-11-2024 Patient encounter procedure [facility] Physician [facility] Work Phone: Start: 11-25-2023 End: 11-25-2023 Patient encounter procedure [facility] Physician [facility] Work Phone: Start: 10-24-2023 End: 10-24-2023 ambulatory MD Emilee Arrieta Work Phone: [facility] Work Phone: Start: 10-24-2023 End: 10-24-2023 Patient encounter procedure MD Emilee Arrieta Work Phone: [facility] Physician [facility] Work Phone: Start: 10-14-2023 End: 10-14-2023 ambulatory Emilee Arrieta Facility:[facility] Start: 10-14-2023 End: 10-14-2023 ambulatory MD Emilee Arrieta Work Phone: [facility] Work Phone: Start: 10-14-2023 End: 10-14-2023 Patient encounter procedure MD Emilee Arrieta Work Phone: [facility] Physician [facility] Vascular Surgery Work Phone: Start: 10-08-2023 Non-patient / Non-visit MD Kristy Arrieta Work Phone: [facility] [employer] Work Phone: Start: 04-14-2023 End: 04-14-2023 Patient encounter procedure Allison Harris Other [facility]Ul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 Start: 11-21-2022 End: 11-21-2022 ambulatory Emilee Arrieta Facility:[facility] Start: 11-21-2022 End: 11-21-2022 ambulatory MD Emilee Arrieta Work Phone: [facility] Work Phone: Start: 11-21-2022 End: 11-21-2022 Patient encounter procedure MD Emilee Arrieta Work Phone: [facility] [place] Work Phone: Start: 05-24-2022 ambulatory Gideon VELASQUEZ Facility : [place] Start: 05-10-2022 End: 05-10-[address] EMILEE ARRIETA Facility: Start: 02-08-2022 Adult health examination Allison Harris Other [place] [employer] Other Procedures Date Procedure Procedure Detail Performing Clinician Start: 10-14-2023 Ankle brachial press ure index MD Emilee Arrieta Work Phone: Start: 04-14-2023 Ankle brachial press ure index MD Emilee Arrieta Work Phone: Plan of Treatment Date Care Activity Detail Author Start: 11-21-2022 Pulse volume recorder pneumoplethysmography US arterial pvr rest [facility] XR Thoracic spine 3 Views [facility] Payers Date Payer Category Payer Self-pay [id number] 1958 Medicaid [id number] 1958 Unknown [id number] 1955 Unknown [id number] [id number] 1955 Unknown [id number] Unknown [id number] Unknown [id number] 2.16.8 [id number] Unknown [id number] [id number] [id number] Social History Date Type Detail Facility Start: 01-22-2018 End: 10-14-2023 Tobacco smoking status SDIS Smoker (finding) [facility] Start: 1955 Sex Assigned At Female F [facility] Sex Assigned At Sex Assigned At Bir th [place] [employer] Other Medical Equipment Procedure Code Equipment Code [...] concerns whatsoever. Apr, Claudication (ICD-10 - I73.9) [employer] Other Evaluation note 01-06-2023 Note Date & [...] down to about 5 cigarettes a day. [employer] Other Evaluation note Note Date & Type Note Facility Evaluation note No assessment information availa [facility] Work Phone: Evaluation note Note Date & Type Note Facility Evaluation note No Information [facility] [employer] Other Evaluation note Note Date & Type Note Facility Evaluation note Diagnosis Onset Date Current every day smoker acu te PAD (peripheral artery disease) acute [facility] Work Phone: Evaluation note Note Date & Type Note Facility Evaluation note Diagnosis Onset Date Current every day smoker acu te PAD (peripheral artery disease) acute Post herpetic neuralgia acut e [facility] Work Phone: Evaluation note Note Date & Type Note Facility Evaluation note Diagnosis Onset Date Post herpetic neuralgia acut e Thoracic radiculitis acute [facility] Work Phone: History general Narrative - Reported Note Date & Type Note Facility History general Narrative - Reported Type Medical History hypotension [employer] Other History general Narrative - Reported Note [...] Cataract surgery 10/2015, Problem Status : Active, [employer] Other Summary Purpose Family History Relationship Condition [...] section and content) DATE CREATED AUTHOR [facility]/20/2022 [facility] DATE CREATED AUTHOR AUTHOR'S ORGANIZ ATION 06/26/2022 [facility] DATE CREATED AUTHOR AUTHOR'S ORGANIZ ATION 10/15/2023 [facility] Care Teams (unrecognized sec tion and content) [...] BE BASED ON THE PRIMARY CLINICAL RECORDS. [facility]. provides no warranty or guarantee of the accuracy or completeness of information in this document.
== END 2024-02-13 14:19 | disposition home or self-care (01) ==
LOC: RAD 14:20
PROVIDERS: PCP Family Medicine; Visit Provider Family Medicine
DX: R07.9 Chest pain, unspecified (principal)
CPT/HCPCS: 71046

== ENCOUNTER 2024-03-01 13:32 | Outpatient (OUT) | payer MEDICARE, SELFPAY ==
--- OUTSIDE RECORDS SUMMARY | 2024-03-01 13:56 | XMS_ITS | CCD ---
Author Organization [facility] Care Team Providers Care Business Services Vice President Name Role Phone Gideon VELASQUEZ Attending Unavailable MEENAKSHI, DR EMILEE Ohara Primary Care Unavailable PAY, DR TAYLOR Admitting Unavailable PAY, DR TAYLOR Attending Unavailable PAY, DR TAYLOR Consulting Unavailable MD Emilee Arrieta Primary Care Provider [phone] MD Emilee Arrieta Attending Provider [phone] Allison Iglesias Unavailable MD Emilee Arrieta Primary [...] [Contrast Dye] Propensity to adverse reactions (disorder) [facility] Repository (1 source) Iodine (And Iodine Containting Drugs) Drug allergy (disorder) [facility] Repository Medications Current Medications Medication [...] and other heart disease; Translations: [Atherosclerosis of [place] arteries of extremities with intermittent claudication, bilateral legs] Onset: 04-14-2023 Glaucoma (1 source) Unspecified glaucoma; Translations: [Unspecified glaucoma] Onset: 09-08-2015 Chronic Hemorrhoids (1 source) Hemorrhoids; Translations: [Unspecified hemorrhoids] Episodic Other aftercare (1 source) Other longterm (current) drug therapy; Translations: [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 THERAPY] Onset: 05-13-2022 Episodic Other [...] US ankle/arm indiceson 10-13 US ankle/arm indices [facility] Main [place] [address] [place] [address] Ultrasound Report Signed Patient: Ellie Montaño MR#: [id number] : 1955 Acct:[id number] Age/Sex: 68 / F ADM Date: 10/14/23 Loc: [facility] Room: Type: [facility] Attending Dr: Allison Iglesias [employer] Ordering Provider: Allison Iglesias APRN Date of [...] Mark Bray M.D.10/14/2023 9:33 AM Dictation Location: [place] [address] Tech: Abril Barbour Transcribed By: RUBY 10/14/23932 Dictated By: Mark Bray MD 10/14/23932 Signed By: 10/14/23932 [facility] US ankle/arm indiceson 04-14 US ankle/arm indices [facility] Main [place] [address] [place] [address] Ultrasound Report Signed Patient: Ellie Montaño MR#: [id number] : 1955 Acct:[id number] Age/Sex: 67 / F ADM Date: 04/14/23 Loc: [facility] Room: Type: [facility] Attending Dr: Allison Iglesias [employer] Ordering Provider: Allison Iglesias APRN Date of [...] Mark Bray M.D.04/14/2023 2:43 PM Dictation Location: [facility] Tech: Luda Yousif Transcribed By: RUBY 04/14/231442 Dictated By: Mark Bray MD 04/14/231441 Signed By: 04/14/231442 [facility] US arterial pvr rest Joanne US arterial pvr rest LE [facility] [place] [address] Ultrasound Report Signed Patient: Ellie Montaño MR#: [id number] : 1955 Acct:[id number] Age/Sex: 67 / F ADM Date: 11/21/22 Loc: Room: Type: [facility] Attending Dr: Emilee Arrieta MD Ordering [...] John Bell MD11/25/2022 2:52 PM Dictation Location: [place] [address] Tech: Hailey Haddad Transcribed By: RUBY 11/25/221451 Dictated By: John Bell MD 11/25/221450 Signed By: 11/25/22 145 [facility] ED Note-Physicianon 05-20-20 ED Note-Physician [id number] 0CD:127 Normal [facility] Vital Signs Date Time Vital Sign Value Performing Clinician Facility 02-11-2024 10:54-0400 Body height 162.56 cm [facility] 02-11-2024 10:54-0400 Body mass index (BMI) [Ratio] 19 kg/m2 [facility] 02-11-2024 10:54-0400 Body weight 50.34 kg [facility] 02-11-2024 10:54-0400 Diastolic blood pressure 74 mm[Hg] [facility] 02-11-2024 10:54-0400 Heart rate 115 /min [facility] 02-11-2024 10:54-0400 Systolic blood pressure 118 mm[Hg] [facility] 11-25-2023 11:44-0400 Body height 162.56 cm [facility] 11-25-2023 11:44-0400 Body mass index (BMI) [Ratio] 19.9 kg/m2 [facility] 11-25-2023 11:44-0400 Body weight 52.61 kg [facility] 11-25-2023 11:44-0400 Diastolic blood pressure 82 mm[Hg] [facility] 11-25-2023 11:44-0400 Heart rate 91 /min [facility] 11-25-2023 11:44-0400 Systolic blood pressure 130 mm[Hg] [facility] 10-24-2023 13:24-0400 Body height 162.56 cm MD Emilee Arrieta Work Phone: [facility] 10-24-2023 13:24-0400 Body mass index (BMI) [Ratio] 19.9 kg/m2 MD Emilee Arrieta Work Phone: [facility] 10-24-2023 13:24-0400 Body weight 52.67 kg MD Emilee Arrieta Work Phone: [facility] 10-24-2023 13:24-0400 Diastolic blood pressure 78 mm[Hg] MD Emilee Arrieta Work Phone: [facility] 10-24-2023 13:24-0400 Heart rate 110 /min MD Emilee Arrieta Work Phone: [facility] 10-24-2023 13:24-0400 SaO2% (BldA) [Mass fraction] 99 % MD Emilee Arrieta Work Phone: [facility] 10-24-2023 13:24-0400 Systolic blood pressure 132 mm[Hg] MD Emilee Arrieta Work Phone: [facility] 10-14-2023 09:23-0400 Body height 162.56 cm MD Emilee Arrieta Work Phone: [facility] 10-14-2023 09:23-0400 Body mass index (BMI) [Ratio] 19.7 kg/m2 MD Emilee Arrieta Work Phone: [facility] 10-14-2023 09:23-0400 Body temperature 98 [degF] MD Emilee Arrieta Work Phone: [facility] 10-14-2023 09:23-0400 Body weight 52.16 kg MD Emilee Arrieta Work Phone: [facility] 10-14-2023 09:23-0400 Diastolic blood pressure 82 mm[Hg] MD Emilee Arrieta Work Phone: [facility] 10-14-2023 09:23-0400 Heart rate 70 /min MD Emilee Arrieta Work Phone: [facility] 10-14-2023 09:23-0400 SaO2% (BldA) [Mass fraction] 97 % MD Emilee Arrieta Work Phone: [facility] 10-14-2023 09:23-0400 Systolic blood pressure 140 mm[Hg] MD Emilee Arrieta Work Phone: [facility] 04-14-2023 09:30-0400 Body height 165.1 cm Allison Iglesias Other [employer] [facility] [email or web address] Other 04-14-2023 09:30-0400 Body mass index (BMI) [Ratio] 17.47 kg/m2 Allison Iglesias Other [employer] Other 04-14-2023 09:30-0400 Body temperature 96.4 [degF] Allison Wildo Other [employer] Other 04-14-2023 09:30-0400 Body weight 47.63 kg Allison Wildo Other [employer] Other 04-14-2023 09:30-0400 Diastolic blood pressure 74 mm[Hg] Allison Wildo Other [employer] Other 04-14-2023 09:30-0400 SaO2% (BldA) [Mass fraction] 99 % Allison Wildo Other [employer] Other 04-14-2023 09:30-0400 Systolic blood pressure 110 mm[Hg] Allison Wildo Other [employer] Other 01-06-2023 13:30-0400 Body height 165.1 cm Allison Iglesias Other [employer] Other 01-06-2023 13:30-0400 Body mass index (BMI) [Ratio] 17.47 kg/m2 Allison Wildo Other [employer] Other 01-06-2023 13:30-0400 Body temperature 97.3 [degF] Allison Wildo Other [employer] Other 01-06-2023 13:30-0400 Body weight 47.63 kg Allison Wildo Other [employer] Other 01-06-2023 13:30-0400 Diastolic blood pressure 80 mm[Hg] Allison Iglesias Other [employer] [facility] [email or web address] Other 01-06-2023 13:30-0400 SaO2% (BldA) [Mass fraction] 99 % Allison Iglesias Other [employer] Other 01-06-2023 13:30-0400 Systolic blood pressure 122 mm[Hg] Allison Iglesias Other [employer] Other Encounters Encounter Date Encounter Type Care Provider Facility Start: 02-11-2024 End: 02-11-[address] [facility] Work Phone: Start: 02-11-2024 End: 02-11-2024 Patient encounter procedure [facility] Work Phone: Start: 11-25-2023 End: 11-25-2023 Patient encounter procedure [facility] Work Phone: Start: 10-24-2023 End: 10-24-2023 ambulatory MD Emilee Arrieta Work Phone: [facility] Work Phone: Start: 10-24-2023 End: 10-24-2023 Patient encounter procedure MD Emilee Arrieta Work Phone: [facility] Work Phone: Start: 10-14-2023 End: 10-14-2023 ambulatory Emilee Arrieta Facility:[facility] Start: 10-14-2023 End: 10-14-2023 ambulatory MD Emilee Arrieta Work Phone: [facility] Work Phone: Start: 10-14-2023 End: 10-14-2023 Patient encounter procedure MD Emilee Arrieta Work Phone: [facility] Work Phone: Start: 10-08-2023 Non-patient / Non-visit MD Kristy Arrieta Work Phone: [facility] [employer] Work Phone: Start: 04-14-2023 End: 04-14-2023 Patient encounter procedure Allison Harris Other [facility] Start: 04-14-2023 End: 04-14-2023 ambulatory Emilee Arrieta Facility:[facility] Start: 04-14-2023 End: 04-14-2023 ambulatory MD Emilee Arrieta Work Phone: [email or web address] [email or web address] Other Start: 01-06-2023 End: 01-06-2023 ambulatory Allison Iglesias Other [facility] [email or web address] Other Start: 01-06-2023 [facility] visit new patient Allison Healycameron lee [facility] Start: 01-06-2023 Telephone encounter Allison Macdonald [employer] Start: 11-21-2022 End: 11-21-2022 ambulatory Emilee Arrieta Facility:[facility] Start: 11-21-2022 End: 11-21-2022 ambulatory MD Emilee Arrieta Work Phone: [facility] Work Phone: Start: 11-21-2022 End: 11-21-2022 Patient encounter procedure MD Emilee Arrieta Work Phone: [facility] [place] Work Phone: Start: 05-24-2022 ambulatory Gideon VELASQUEZ Facility : [place] Start: 05-10-2022 End: 05-10-[address] EMILEE ARRIETA Facility: Start: 02-08-2022 Adult health examination Allison Harris Other [employer] Other Procedures Date Procedure Procedure Detail Performing Clinician Start: 10-14-2023 Ankle brachial press ure index MD Emilee Arrieta Work Phone: Start: 04-14-2023 Ankle brachial press ure index MD Emilee Arrieta Work Phone: Plan of Treatment Date Care Activity Detail Author Start: 11-21-2022 Pulse volume recorder pneumoplethysmography US arterial pvr rest [facility] XR Thoracic spine 3 Views [facility] Payers Date Payer Category Payer Self-pay [id number] 1958 Medicaid [id number] 1958 Unknown [id number] 1955 Unknown [id number] 1955 Unknown [id number] Unknown [id number] Unknown [id number] [id number] [id number] Unknown [id number] [id number] [id number] Social History Date Type Detail Facility Start: 01-22-2018 End: 10-14-2023 Tobacco smoking status AKIS Smoker (finding) [facility] Start: 1955 Sex Assigned At Female F [facility] Sex Assigned At Sex Assigned At Bir th [employer] Other Medical Equipment Procedure Code Equipment Code [...] concerns whatsoever. Apr, Claudication (ICD-10 - I73.9) [employer] Other Evaluation note 01-06-2023 Note Date & [...] down to about 5 cigarettes a day. [employer] Other Evaluation note Note Date & Type Note Facility Evaluation note No assessment information availa [facility] Work Phone: Evaluation note Note Date & Type Note Facility Evaluation note No Information [facility] [employer] Other Evaluation note Note Date & Type Note Facility Evaluation note Diagnosis Onset Date Current every day smoker acu te PAD (peripheral artery disease) acute [facility] Work Phone: Evaluation note Note Date & Type Note Facility Evaluation note Diagnosis Onset Date Current every day smoker acu te PAD (peripheral artery disease) acute Post herpetic neuralgia acut e [facility] Work Phone: Evaluation note Note Date & Type Note Facility Evaluation note Diagnosis Onset Date Post herpetic neuralgia acut e Thoracic radiculitis acute [facility] Work Phone: History general Narrative - Reported Note Date & Type Note Facility History general Narrative - Reported Type Medical History hypotension [employer] Other History general Narrative - Reported Note [...] Cataract surgery 10/2015, Problem Status : Active, [employer] Other Summary Purpose Family History Relationship Condition [...] section and content) DATE CREATED AUTHOR [facility]20/[facility] DATE CREATED AUTHOR AUTHOR'S ORGANIZ ATION 06/26/2022 [facility] DATE CREATED AUTHOR AUTHOR'S ORGANIZ ATION 10/15/2023 [facility] Care Teams (unrecognized sec tion and [...] Provider Active Start: October 14, 2023 Allison Iglesisa NP-C Attending Provider Active Start: October 14, [...] BE BASED ON THE PRIMARY CLINICAL RECORDS. [facility]. provides no warranty or guarantee of the accuracy or completeness of information in this document.
--- NOTE | 2024-03-01 14:59 | P.CN_ITS ---
Consult Note: HPI Data of Consult Patient: new to practice Consult date: 03/01/24 Requesting Physician: Michaela Delgado MD Primary Care Provider: Emilee Mobley MD Consult Narrative Reason for consult: thoracic radiating pain Narrative: 68yof who presents for evaluation. >6 months of radiating thoracic pain into left breast initially, now also into right breast. denies any inciting event. does endorse history of shingles with thoracic manifestation, but states rash was lower than her current area of pain. thoracic xr does not show any significant pathology. no advanced imaging available for review. has tried tramadol, with some benefit. has engaged in provider directed home exercises >6 weeks, without lasting benefit. denies adverse med side effects. cc:: CC: Michaela Delgado MD Review of Systems ROS Status of ROS 10 or more systems reviewed and unremark able except as noted in history and below Meds Home Medications and Allergies Home Medications ?Medication ?Instructions ?Recorded ?Confirmed ?Type amlodipine 2.5 mg tablet 2.5 mg PO DAILY 03/01/24 03/01/24 History aspirin 81 mg tablet,delayed 81 mg PO DAILY 03/01/24 03/01/24 History release (Adult Aspirin Regimen) atorvastatin 20 mg tablet 20 mg PO DAILY 03/01/24 03/01/24 History gabapentin 300 mg capsule 300 mg PO TID #90 caps 03/01/24 Rx tramadol 50 mg tablet 50 mg PO BID 03/01/24 03/01/24 History Allergies Allergy/AdvReac Type Severity Reaction Status Date / Time No Known Drug Allergies Allergy Verified 03/01/24 14:23 Exam Narrative Exam Narrative: Psych-alert and oriented x 3. Attentive and appropriate, constitutionally normal, displays normal mood and affect per situation. There are no obvious deficits in memory, reasoning, or intellect.? Skin-no obvious rashes, bruising, erythema noted to the patient's area of pain.? Extremities- extremities are warm with minimal edema and palpable pulses. Thoracic-tenderness to palpation noted in the thoracic spine and paraspinal musculature. Pain is not elicited with flexion, extension, and lateral rotation of the lumbar spine. Range of motion is not diminished with these motions. Facet loading maneuvers are negative.? Sensory-no notable sensory deficits in the bilateral lower extremities to touch or pinprick in all dermatomal distributions with the exception to decreased sensation to the bilateral T6, 7, 8 dermatomal distribution Coordination remains intact.? Gait remains non-antalgic Assessment and Plan Assessment and Plan (1) Thoracic spinal stenosis: (2) Thoracic radiculopathy: Plan 68yof who presents for evaluation. failed conservative measures, as noted. imaging reviewed, as noted. given symptoms and imaging, would like her to undergo thoracic mri without contrast. she is in agreement. given her history of shingles, possible that this is sequela of postherpetic neuralgia, despite her rash being in lower region. meds reviewed. will have her trial gabapentin 300mg tid. follow up after imaging.
== END 2024-03-01 13:33 | disposition home or self-care (01) ==
PROVIDERS: PCP Family Medicine; Visit Provider Anesthesiology
DX: M48.04 Spinal stenosis, thoracic region (principal); M54.14 Radiculopathy, thoracic region
CPT/HCPCS: G0463

== ENCOUNTER 2024-03-10 08:33 | Outpatient (OUT) | payer MEDICARE, SELFPAY ==
--- NOTE | 2024-03-10 08:37 | MR_ITS ---
The [address] [address] Patient Name: KWAME AMAYA MRN: [id number] date: 1955 Sex: F Assigned Patient Location: MRI Current Patient Location: MRI Accession/Order Number: [id number] Exam Date: 03/10/2024 08:45 Report Date: 03/10/2024 11:13 At the request of: JALEEL SANCHEZ Procedure: MR thoracic spine wo con EXAMINATION: MR thoracic spine wo con HISTORY: Thoracic Radiculopathy COMPARISON: No relevant comparison available. TECHNIQUE: Axial T2; Sagittal T1, T2, and Stir sequences. Images were performed without contrast. FINDINGS: CORD: Normal caliber, contour, and signal intensity. BONES: No fracture, pars defect, or osseous lesion. DISCS: Early degenerative disc disease is present throughout the thoracic spine without focal protrusion or neural impingement. Mild to moderate posterior disc protrusion L1-L2. PARASPINAL AREA: No visible mass. OTHER: Negative. MR/MR thoracic spine wo con IMPRESSION: 1. No suspicious findings of the thoracic spine to account for patient's symptoms. No significant degenerative changes. 2. L2-L3 degenerative disc disease which may cause mild central canal narrowing, but no foramen narrowing. Limited evaluation of this level on today's study. Electronically authenticated by: NGOC BARBA Date: 03/10/2024 11:13
== END 2024-03-10 08:34 | disposition home or self-care (01) ==
LOC: MRI 08:33
PROVIDERS: PCP Family Medicine; Visit Provider Nurse Practitioner
DX: M54.14 Radiculopathy, thoracic region (principal)
CPT/HCPCS: 72146

== ENCOUNTER 2024-03-24 12:35 | Outpatient (OUT) | payer MEDICARE, SELFPAY ==
--- OUTSIDE RECORDS SUMMARY | 2024-03-24 12:54 | XMS_ITS | CCD ---
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 Name Role Phone Gideon VELASQUEZ Attending Unavailable MEENAKSHI, DR EMILEE Ohara Primary Care Unavailable PAY, DR TAYLOR Admitting Unavailable PAY, DR TAYLOR Attending Unavailable PAY, DR TAYLOR Consulting Unavailable MD Emilee Arrieta Primary Care Provider [phone] MD Emilee Arrieta Attending Provider [phone] Allison Iglesias Unavailable MD Emilee Arrieta Primary Care Provider YAYA Iglesias Attending Provider MD Emilee Arrieta Primary Care Provider [phone] YAYA Iglesias Attending Provider Emilee Arrieta Primary Care Unavailable Emilee Arrieta Admitting Unavailable Emilee Arrieta Attending Unavailable Emilee Arrieta Primary Care Unavailable Allison Iglesias Attending Unavailable Allison Iglesias Admitting Unavailable Emilee Arrieta Primary Care Unavailable Allison Iglesias Attending Unavailable Allison Iglesias Admitting Unavailable Danny WALLACE, Michaela Galo Attending Unavailable Allergies Allergy Classification Reported Allergen(s) Allergy Type Date of Onset Reaction(s) Facility (1 source) Contrast media; Translations: [Contrast Dye] Propensity to adverse reactions (disorder) [facility] Repository (1 source) Iodine (And Iodine Containting Drugs) Drug allergy (disorder) [facility] Repository Medications Current Medications Medication Drug [...] and other heart disease; Translations: [Atherosclerosis of [place] arteries of extremities with intermittent claudication, bilateral legs] Onset: 04-14-2023 Glaucoma (1 source) Unspecified glaucoma; Translations: [Unspecified glaucoma] Onset: 09-08-2015 Chronic Hemorrhoids (1 source) Hemorrhoids; Translations: [Unspecified hemorrhoids] Episodic Other aftercare (1 source) 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; Translations: [OTH SNF CURRENT DRUG THERAPY] Onset: 05-13-2022 Episodic Other [...] US ankle/arm indiceson 10-13 US ankle/arm indices [facility] [place] [address] Ultrasound Report Signed Patient: Ellie Montaño MR#: [id number] : 1955 Acct:[id number] Age/Sex: 68 / F ADM Date: 10/14/23 Loc: [facility] Room: Type: [facility] Attending Dr: Allison Iglesias [employer] STE[employer] WORKER[employer]C Ordering Provider: Allison Iglesias APRN Date of [...] Mark Bray M.D.10/14/2023 9:33 AM Dictation Location: [place] [address] Tech: Abril Barbour Transcribed By: RUBY 10/14/23932 Dictated By: Mark Bray MD 10/14/23932 Signed By: 10/14/23932 [facility] US ankle/arm indiceson 04-14 US ankle/arm indices [facility] [place] [address] Ultrasound Report Signed Patient: Ellie Montaño MR#: [id number] : 1955 Acct:[id number] Age/Sex: 67 / F ADM Date: 04/14/23 Loc: [facility] Room: Type: [facility] Attending Dr: Allison Iglesias [employer] STE[employer] WORKER[employer]C Ordering Provider: Allison Iglesias APRN Date of [...] Mark Bray M.D.04/14/2023 2:43 PM Dictation Location: [facility] Tech: Luda Yousif Transcribed By: RUBY 04/14/231442 Dictated By: Mark Bray MD 04/14/231441 Signed By: 04/14/231442 [facility] US arterial pvr rest Joanne US arterial pvr rest LE [facility] [place] [address] Ultrasound Report Signed Patient: Ellie Montaño MR#: [id number] : 1955 Acct:[id number] Age/Sex: 67 / F ADM Date: 11/21/22 Loc: Room: Type: [facility] Attending Dr: Emilee Arrieta MD Ordering Provider: [...] John Bell MD11/25/2022 2:52 PM Dictation Location: [place] [address] Tech: Hailey Haddad Transcribed By: RUBY 11/25/221451 Dictated By: John Bell MD 11/25/221450 Signed By: 11/25/221451 [facility] ED Note-Physicianon 05-20-20 22 ED Note-Physician [id number] [facility] Vital Signs Date Time Vital Sign Value Performing Clinician Facility 02-11-2024 10:54-0400 Body height 162.56 cm [facility] 02-11-2024 10:54-0400 Body mass index (BMI) [Ratio] 19 kg/m2 [facility] 02-11-2024 10:54-0400 Body weight 50.34 kg [facility] 02-11-2024 10:54-0400 Diastolic blood pressure 74 mm[Hg] [facility] 02-11-2024 10:54-0400 Heart rate 115 /min [facility] 02-11-2024 10:54-0400 Systolic blood pressure 118 mm[Hg] [facility] 11-25-2023 11:44-0400 Body height 162.56 cm [facility] 11-25-2023 11:44-0400 Body mass index (BMI) [Ratio] 19.9 kg/m2 [facility] 11-25-2023 11:44-0400 Body weight 52.61 kg [facility] 11-25-2023 11:44-0400 Diastolic blood pressure 82 mm[Hg] [facility] 11-25-2023 11:44-0400 Heart rate 91 /min [facility] 11-25-2023 11:44-0400 Systolic blood pressure 130 mm[Hg] [facility] 10-24-2023 13:24-0400 Body height 162.56 cm MD Emilee Arrieta Work Phone: [facility] 10-24-2023 13:24-0400 Body mass index (BMI) [Ratio] 19.9 kg/m2 MD Emilee Arrieta Work Phone: [facility] 10-24-2023 13:24-0400 Body weight 52.67 kg MD Emilee Arrieta Work Phone: [facility] 10-24-2023 13:24-0400 Diastolic blood pressure 78 mm[Hg] MD Emilee Arrieta Work Phone: [facility] 10-24-2023 13:24-0400 Heart rate 110 /min MD Emilee Arrieta Work Phone: [facility] 10-24-2023 13:24-0400 SaO2% (BldA) [Mass fraction] 99 % MD Emilee Arrieta Work Phone: [facility] 10-24-2023 13:24-0400 Systolic blood pressure 132 mm[Hg] MD Emilee Arrieta Work Phone: [facility] 10-14-2023 09:23-0400 Body height 162.56 cm MD Emilee Arrieta Work Phone: [facility] 10-14-2023 09:23-0400 Body mass index (BMI) [Ratio] 19.7 kg/m2 MD Emilee Arrieta Work Phone: [facility] 10-14-2023 09:23-0400 Body temperature 98 [degF] MD Emilee Arrieta Work Phone: [facility] 10-14-2023 09:23-0400 Body weight 52.16 kg MD Emilee Arrieta Work Phone: [facility] 10-14-2023 09:23-0400 Diastolic blood pressure 82 mm[Hg] MD Emilee Arrieta Work Phone: [facility] 10-14-2023 09:23-0400 Heart rate 70 /min MD Emilee Arrieta Work Phone: [facility] 10-14-2023 09:23-0400 SaO2% (BldA) [Mass fraction] 97 % MD Emilee Arrieta Work Phone: [facility] 10-14-2023 09:23-0400 Systolic blood pressure 140 mm[Hg] MD Emilee Arrieta Work Phone: [facility] 04-14-2023 09:30-0400 Body height 165.1 cm Allison Iglesias Other [facility] Other 04-14-2023 09:30-0400 Body mass index (BMI) [Ratio] 17.47 kg/m2 Allison Iglesias Other [facility] Other 04-14-2023 09:30-0400 Body temperature 96.4 [degF] Allison Wildo Other [facility] Other 04-14-2023 09:30-0400 Body weight 47.63 kg Allison Wildo Other [facility] Other 04-14-2023 09:30-0400 Diastolic blood pressure 74 mm[Hg] Allison Wildo Other [facility] Other 04-14-2023 09:30-0400 SaO2% (BldA) [Mass fraction] 99 % Allison Wildo Other [facility] Other 04-14-2023 09:30-0400 Systolic blood pressure 110 mm[Hg] Allison Wildo Other [facility] Other 01-06-2023 13:30-0400 Body height 165.1 cm Allison Iglesias Other [facility] Other 01-06-2023 13:30-0400 Body mass index (BMI) [Ratio] 17.47 kg/m2 Allison Wildo Other [facility] Other 01-06-2023 13:30-0400 Body temperature 97.3 [degF] Allison Wildo Other [facility] Other 01-06-2023 13:30-0400 Body weight 47.63 kg Allison Wildo Other [facility] Other 01-06-2023 13:30-0400 Diastolic blood pressure 80 mm[Hg] Allison Iglesias Other [facility] Other 01-06-2023 13:30-0400 SaO2% (BldA) [Mass fraction] 99 % Allison Iglesias Other [facility] Other 01-06-2023 13:30-0400 Systolic blood pressure 122 mm[Hg] Allison Iglesias Other [facility] Other Encounters Encounter Date Encounter Type Care Provider Facility Start: 03-01-2024 End: 03-01-2024 ambulatory Michaela Delgado MD Facility:[facility] Start: 02-11-2024 End: 02-11-2024 ambulatory [facility] Work Phone: Start: 02-11-2024 End: 02-11-2024 Patient encounter procedure [facility] Work Phone: Start: 11-25-2023 End: 11-25-2023 Patient encounter procedure [facility] Work Phone: Start: 10-24-2023 End: 10-24-2023 ambulatory MD Emilee Arrieta Work Phone: [facility] Work Phone: Start: 10-24-2023 End: 10-24-2023 Patient encounter procedure MD Emilee Arrieta Work Phone: [facility] Work Phone: Start: 10-14-2023 End: 10-14-2023 ambulatory Emilee Arrieta Facility:[facility] Start: 10-14-2023 End: 10-14-2023 ambulatory MD Emilee Arrieta Work Phone: [facility] Work Phone: Start: 10-14-2023 End: 10-14-2023 Patient encounter procedure MD Emilee Arrieta Work Phone: [facility] Vascular Surgery Work Phone: Start: 10-08-2023 Non-patient / Non-visit MD Kristy Arrieta Work Phone: [facility] Work Phone: Start: 04-14-2023 End: 04-14-2023 Patient encounter procedure Allison Harris Other [facility]-Ultrasound [facility] Start: 04-14-2023 End: 04-14-2023 ambulatory Emilee Arrieta Facility:[facility] Start: 04-14-2023 End: 04-14-2023 ambulatory MD Emilee Arrieta Work Phone: [facility] Other Start: 01-06-2023 End: 01-06-2023 ambulatory Allison Iglesias Other [facility] Other Start: 01-06-2023 FQ visit new patient Allison Wild rosa [facility] Vascular Surgery Start: 01-06-2023 Telephone encounter Allison Macdonald Manager [employer] Start: 11-21-2022 End: 11-21-2022 ambulatory Emilee Arrieta Facility:[facility] Start: 11-21-2022 End: 11-21-2022 ambulatory MD Emilee Arrieta Work Phone: [facility] Work Phone: Start: 11-21-2022 End: 11-21-2022 Patient encounter procedure MD Emilee Arrieta Work Phone: [facility]-Ultrasound [place] Work Phone: Start: 05-24-2022 ambulatory Gideon VELASQUEZ Facility :[facility] Start: 05-10-2022 End: 05-10-[address] EMILEE ARRIETA Facility: Start: 02-08-2022 Adult health examination Allisonvaleria Iglesias Other [facility] Other Procedures Date Procedure Procedure Detail Performing Clinician Start: 10-14-2023 Ankle brachial press ure index MD Emilee Arrieta Work Phone: Start: 04-14-2023 Ankle brachial press ure index MD Emilee Arrieta Work Phone: Plan of Treatment Date Care Activity Detail Author Start: 11-21-2022 Pulse volume recorder pneumoplethysmography US arterial pvr rest LE [facility] XR Thoracic spine 3 Views [facility] Payers Date Payer Category Payer Unknown 2022 Self-pay [id number] 1958 Medicaid [id number] 1958 Unknown [id number] 1955 Unknown [id number] [id number] [id number] 1955 Unknown [id number] [id number] 1955 Unknown [id number] [id number] Unknown [id number] Unknown [id number] 2.16.8 [id number] Unknown [id number] 2.16.8 [id number] Social History Date Type Detail Facility Start: 01-22-2018 End: 10-14-2023 Tobacco smoking status KSIS Smoker (finding) [facility] Start: 1955 Sex Assigned At Female F [facility] Sex Assigned At Sex Assigned At Bir th [facility] Other Medical Equipment Procedure Code Equipment Code [...] concerns whatsoever. Apr, Claudication (ICD-10 - I73.9) [facility] Other Evaluation note 01-06-2023 Note Date & [...] down to about 5 cigarettes a day. [facility] Other Evaluation note Note Date & Type Note Facility Evaluation note No assessment information availa [facility] Work Phone: Evaluation note Note Date & Type Note Facility Evaluation note No Information [facility] Other Evaluation note Note Date & Type Note Facility Evaluation note Diagnosis Onset Date Current every day smoker acu te PAD (peripheral artery disease) acute [facility] Work Phone: Evaluation note Note Date & Type Note Facility Evaluation note Diagnosis Onset Date Current every day smoker acu te PAD (peripheral artery disease) acute Post herpetic neuralgia acut e [facility] Work Phone: Evaluation note Note Date & Type Note Facility Evaluation note Diagnosis Onset Date Post herpetic neuralgia acut e Thoracic radiculitis acute [facility] Work Phone: History general Narrative - Reported Note Date & Type Note Facility History general Narrative - Reported Type Medical History hypotension [facility] Other History general Narrative - Reported Note [...] Cataract surgery 10/2015, Problem Status : Active, [facility] Other Summary Purpose Family History No Family History Records Found Relationship Condition Age at Onset Recorded Date/T jimmy father Unknown Heart disease Unknown Not Specified Unknown Relationship Condition Age at Onset Recorded Date/T jimmy father Unknown Heart disease Unknown mother Unknown Advance Directives No Advanced Directives Records Found Advance Directive Response Recorded Date/ Time Advance [...] section and content) DATE CREATED AUTHOR 05/20/2022 [facility] DATE CREATED AUTHOR AUTHOR'S ORGANIZ ATION 06/26/2022 [facility] DATE CREATED AUTHOR AUTHOR'S ORGANIZ ATION 10/15/2023 [facility] DATE CREATED AUTHOR AUTHOR'S ORGANIZ ATION 03/13/2024 [facility] Care Teams (unrecognized sec tion and content) [...] 2023 Malaika Machado Attending Provider Active Start: 2023 Team Status: Inactive Member Role Status Dates Emilee Arrieta MD Primary Care Provider Active Start: October 14, 2023 End: October 14, 2023 Mark Bray MD Attending Provider Active S tart: October 14, 2023 End: October 14, 2023 Team Status: Active Member Role Status Dates Emilee Arrieta MD Primary Care Provider Active Start: October 14, 2023 YAYA Faust Attending Provider Active Start: October 14, 2023 Team Status: Inactive Member Role Status Dates Emilee Arrieta MD Primary Care Provider, Attending Lance tilley Active Team Status: Inactive Member Role Status Dates Emilee Arrieta MD Primary Care Provider Active YAYA Faust Attending Provider Active Team Status: Inactive Member Role Status Dates Emilee Arrieta MD Primary Care Provider Active Start: October 14, 2023 End: October 14, 2023 YAYA Faust Attending Provider Active Start: October 14, 2023 End: October 14, 2023 Team Status: Inactive Member Role Status Dates Emilee Arrieta MD Primary Care Provide r, Attending Provider Active Start: October 24, 2023 End: October 24, 2023 Goals (unrecognized section and content) Goals may [...] BE BASED ON THE PRIMARY CLINICAL RECORDS. [facility]. provides no warranty or guarantee of the accuracy or completeness of information in this document.
--- NOTE | 2024-03-24 13:18 | P.CN_ITS ---
Consult Note: HPI Data of Consult Patient: new to practice Consult date: 03/01/24 Requesting Physician: Charley Cameron NP Primary Care Provider: Emilee Mobley MD Consult Narrative Reason for consult: thoracic radiating pain Narrative: 68yof who presents for evaluation. >6 months of radiating thoracic pain into left breast initially, now also into right breast. denies any inciting event. does endorse history of shingles with thoracic manifestation, but states rash was lower than her current area of pain. thoracic xr does not show any significant pathology. recent thoracic MRI unremarkable. has tried tramadol, with some benefit. has engaged in provider directed home exercises >6 weeks, without lasting benefit. denies adverse med side effects. gabapentin 300mg BID causing severe daytime drowsiness but is improving pain. cc:: CC: Charley Cameron NP Review of Systems ROS Status of ROS 10 or more systems reviewed and unremark able except as noted in history and below Meds Home Medications and Allergies Home Medications ?Medication ?Instructions ?Recorded ?Confirmed ?Type amlodipine 2.5 mg tablet 2.5 mg PO DAILY 03/01/24 03/01/24 History aspirin 81 mg tablet,delayed 81 mg PO DAILY 03/01/24 03/01/24 History release (Adult Aspirin Regimen) atorvastatin 20 mg tablet 20 mg PO DAILY 03/01/24 03/01/24 History gabapentin 300 mg capsule 300 mg PO TID #90 caps 03/01/24 Rx tramadol 50 mg tablet 50 mg PO BID 03/01/24 03/01/24 History Allergies Allergy/AdvReac Type Severity Reaction Status Date / Time No Known Drug Allergies Allergy Verified 03/01/24 14:23 Exam Narrative Exam Narrative: Psych-alert and oriented x 3. Attentive and appropriate, constitutionally normal, displays normal mood and affect per situation. There are no obvious deficits in memory, reasoning, or intellect.? Skin-no obvious rashes, bruising, erythema noted to the patient's area of pain.? Extremities- extremities are warm with minimal edema and palpable pulses. Thoracic-tenderness to palpation noted in the thoracic spine and paraspinal musculature. Pain is not elicited with flexion, extension, and lateral rotation of the lumbar spine. Range of motion is not diminished with these motions. Facet loading maneuvers are negative.? Sensory-no notable sensory deficits in the bilateral lower extremities to touch or pinprick in all dermatomal distributions with the exception to decreased sensation to the bilateral T6, 7, 8 dermatomal distribution Coordination remains intact.? Gait remains non-antalgic Assessment and Plan Assessment and Plan (1) Thoracic radiculopathy: (2) Post herpetic neuralgia: Plan 68yof who presents for evaluation. failed conservative measures, as noted. imaging reviewed, as noted. given symptoms and imaging, would like her to undergright T6,7 T7.8 SNRB under fluoroscopy. she is in agreement. given her history of shingles, possible that this is sequela of postherpetic neuralgia, despite her rash being in lower region. meds reviewed. will have her trial gabapentin 100mg tid daytime continuing 300mg HS. follow up injection.
== END 2024-03-24 12:36 | disposition home or self-care (01) ==
LOC: PM 12:35
PROVIDERS: PCP Family Medicine; Visit Provider Nurse Practitioner
DX: M54.14 Radiculopathy, thoracic region (principal); B02.29 Other postherpetic nervous system involvement
CPT/HCPCS: G0463

== ENCOUNTER 2024-04-05 09:19 | Day surgery (SDC) | payer MEDICARE, SELFPAY ==
--- OUTSIDE RECORDS SUMMARY | 2024-04-05 09:25 | XMS_ITS | CCD ---
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 Name Role Phone Gideon VELASQUEZ Attending Unavailable MEENAKSHI, DR EMILEE Ohara Primary Care Unavailable PAY, DR TAYLOR Admitting Unavailable PAY, DR TAYLOR Attending Unavailable PAY, DR TAYLOR Consulting Unavailable MD Emilee Arrieta Primary Care Provider [phone] MD Emilee Arrieta Attending Provider [phone] Allison Iglesias Unavailable MD Emilee Arrieta Primary [...] [Contrast Dye] Propensity to adverse reactions (disorder) [facility] Repository (1 source) Iodine (And Iodine Containting Drugs) Drug allergy (disorder) [facility] Repository Medications Current Medications Medication Drug [...] and other heart disease; Translations: [Atherosclerosis of 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 [place] [address] Ultrasound Report Signed Patient: Ellie Montaño MR#: [id number] : 1955 Acct:[id number] Age/Sex: 68 / F ADM Date: 10/14/23 Loc: [facility] Room: Type: [facility] Attending Dr: Allison Iglesias CHEF CONCIERGE-C Ordering Provider: Allison Iglesias APRN Date of [...] Mark Bray M.D.10/14/2023 9:33 AM Dictation Location: [place] [address] Tech: Abril Barbour Transcribed By: RUBY 10/14/23932 Dictated By: Mark Bray MD 10/14/23932 Signed By: 10/14/23932 [facility] US ankle/arm indiceson 04-14 US ankle/arm indices [facility] [place] [address] Ultrasound Report Signed Patient: Ellie Montaño MR#: [id number] : 1955 Acct:[id number] Age/Sex: 67 / F ADM Date: 04/14/23 Loc: [facility] Room: Type: [facility] Attending Dr: Allison Iglesias [employer]ERGE-C Ordering Provider: Allison Iglesias APRN Date of [...] Mark Bray M.D.04/14/2023 2:43 PM [facility] Tech: Luda Yousif Transcribed By: RUBY 04/14/231442 Dictated By: Mark Bray MD 04/14/231441 Signed By: 04/14/231442 [facility] US arterial pvr rest Joanne US arterial pvr rest LE [facility] [place] [address] Ultrasound Report Signed Patient: Ellie Montaño MR#: [id number] : 1955 Acct:[id number] Age/Sex: 67 / F ADM Date: 11/21/22 Loc: Room: Type: [facility] Attending Dr: Emilee Arrieta MD Ordering [...] John Bell MD11/25/2022 2:52 PM Dictation Location: [place] [address] Tech: Hailey Haddad Transcribed By: RUBY 11/25/221451 Dictated By: John Bell MD 11/25/221450 Signed By: 11/25/221451 [facility] ED Note-Physicianon 05-20-20 22 ED Note-Physician [id number] [facility] Vital Signs Date Time Vital Sign Value Performing Clinician Facility 02-11-2024 10:54-0400 Body height 162.56 cm [facility] 02-11-2024 10:54-0400 Body mass index (BMI) [Ratio] 19 kg/m2 [facility] 02-11-2024 10:54-0400 Body weight 50.34 kg [facility] 02-11-2024 10:54-0400 Diastolic blood pressure 74 mm[Hg] [facility] 02-11-2024 10:54-0400 Heart rate 115 /min [facility] 02-11-2024 10:54-0400 Systolic blood pressure 118 mm[Hg] [facility] 11-25-2023 11:44-0400 Body height 162.56 cm [facility] 11-25-2023 11:44-0400 Body mass index (BMI) [Ratio] 19.9 kg/m2 [facility] 11-25-2023 11:44-0400 Body weight 52.61 kg [facility] 11-25-2023 11:44-0400 Diastolic blood pressure 82 mm[Hg] [facility] 11-25-2023 11:44-0400 Heart rate 91 /min [facility] 11-25-2023 11:44-0400 Systolic blood pressure 130 mm[Hg] [facility] 10-24-2023 13:24-0400 Body height 162.56 cm MD Emilee Arrieta Work Phone: [facility] 10-24-2023 13:24-0400 Body mass index (BMI) [Ratio] 19.9 kg/m2 MD Emilee Arrieta Work Phone: [facility] 10-24-2023 13:24-0400 Body weight 52.67 kg MD Emilee Arrieta Work Phone: [facility] 10-24-2023 13:24-0400 Diastolic blood pressure 78 mm[Hg] MD Emilee Arrieta Work Phone: [facility] 10-24-2023 13:24-0400 Heart rate 110 /min MD Emilee Arrieta Work Phone: [facility] 10-24-2023 13:24-0400 SaO2% (BldA) [Mass fraction] 99 % MD Emilee Arrieta Work Phone: [facility] 10-24-2023 13:24-0400 Systolic blood pressure 132 mm[Hg] MD Emilee Arrieta Work Phone: [facility] 10-14-2023 09:23-0400 Body height 162.56 cm MD Emilee Arrieta Work Phone: [facility] 10-14-2023 09:23-0400 Body mass index (BMI) [Ratio] 19.7 kg/m2 MD Emilee Arrieta Work Phone: [facility] 10-14-2023 09:23-0400 Body temperature 98 [degF] MD Emilee Arrieta Work Phone: [facility] 10-14-2023 09:23-0400 Body weight 52.16 kg MD Emilee Arrieta Work Phone: [facility] 10-14-2023 09:23-0400 Diastolic blood pressure 82 mm[Hg] MD Emilee Arrieta Work Phone: [facility] 10-14-2023 09:23-0400 Heart rate 70 /min MD Emilee Arrieta Work Phone: [facility] 10-14-2023 09:23-0400 SaO2% (BldA) [Mass fraction] 97 % MD Emilee Arrieta Work Phone: [facility] 10-14-2023 09:23-0400 Systolic blood pressure 140 mm[Hg] MD Emilee Arrieta Work Phone: [facility] 04-14-2023 09:30-0400 Body height 165.1 cm Allison Iglesias Other [facility] Other 04-14-2023 09:30-0400 Body mass index (BMI) [Ratio] 17.47 kg/m2 Allison Iglesias Other [facility] Other 04-14-2023 09:30-0400 Body temperature 96.4 [degF] Allison Wildo Other [facility] Other 04-14-2023 09:30-0400 Body weight 47.63 kg Allison Wildo Other [facility] Other 04-14-2023 09:30-0400 Diastolic blood pressure 74 mm[Hg] Allison Wildo Other [facility] Other 04-14-2023 09:30-0400 SaO2% (BldA) [Mass fraction] 99 % Allison Wildo Other [facility] Other 04-14-2023 09:30-0400 Systolic blood pressure 110 mm[Hg] Allison Wildo Other [facility] Other 01-06-2023 13:30-0400 Body height 165.1 cm Allison Iglesias Other [facility] Other 01-06-2023 13:30-0400 Body mass index (BMI) [Ratio] 17.47 kg/m2 Allison Wildo Other [facility] Other 01-06-2023 13:30-0400 Body temperature 97.3 [degF] Allison Wildo Other [facility] Other 01-06-2023 13:30-0400 Body weight 47.63 kg Allison Wildo Other [facility] Other 01-06-2023 13:30-0400 Diastolic blood pressure 80 mm[Hg] Allison Iglesias Other [facility] Other 01-06-2023 13:30-0400 SaO2% (BldA) [Mass fraction] 99 % Allison Iglesias Other [facility] Other 01-06-2023 13:30-0400 Systolic blood pressure 122 mm[Hg] Allison Iglesias Other [facility] Other Encounters Encounter Date Encounter Type Care Provider Facility Start: 03-01-2024 End: 03-01-2024 ambulatory Michaela Delgado MD Facility:[facility] Start: 02-11-2024 End: 02-11-2024 ambulatory [facility] Work Phone: Start: 02-11-2024 End: 02-11-2024 Patient encounter procedure [facility] Work Phone: Start: 11-25-2023 End: 11-25-2023 Patient encounter procedure [facility] Work Phone: Start: 10-24-2023 End: 10-24-2023 ambulatory MD Emilee Arrieta Work Phone: [facility] Work Phone: Start: 10-24-2023 End: 10-24-2023 Patient encounter procedure MD Emilee Arrieta Work Phone: [facility] Work Phone: Start: 10-14-2023 End: 10-14-2023 ambulatory Emilee Arrieta Facility:[facility] Start: 10-14-2023 End: 10-14-2023 ambulatory MD Emilee Arrieta Work Phone: [facility] Work Phone: Start: 10-14-2023 End: 10-14-2023 Patient encounter procedure MD Emilee Arrieta Work Phone: [facility] Vascular Surgery Work Phone: Start: 10-08-2023 Non-patient / Non-visit MD Kristy Arrieta Work Phone: [facility] [employer] Work Phone: Start: 04-14-2023 End: 04-14-2023 Patient encounter procedure Allison Harris Other [facility] Start: 04-14-2023 End: 04-14-2023 ambulatory Emilee Arrieta Facility:[facility] Start: 04-14-2023 End: 04-14-2023 ambulatory MD Emilee Arrieta Work Phone: [facility] [employer] Other Start: 01-06-2023 End: 01-06-2023 ambulatory Allison Iglesias Other [facility] [employer] Other Start: 01-06-2023 FQ visit new patient Allison Wild rosa [facility] Vascular Surgery Start: 01-06-2023 Telephone encounter Allison Macdonald [employer] Start: 11-21-2022 End: 11-21-2022 ambulatory Emilee Arrieta Facility:[facility] Start: 11-21-2022 End: 11-21-2022 ambulatory MD Emilee Arrieta Work Phone: [facility] Work Phone: Start: 11-21-2022 End: 11-21-2022 Patient encounter procedure MD Emilee Arrieta Work Phone: [facility] Work Phone: Start: 05-24-2022 ambulatory Gideon VELASQUEZ Facility :[facility] Start: 05-10-2022 End: 05-10-[address] EMILEE ARIRETA Facility: Start: 02-08-2022 Adult health examination Allisonvaleria Iglesias Other [facility] Other Procedures Date Procedure Procedure Detail Performing Clinician Start: 10-14-2023 Ankle brachial press ure index MD Emilee Arrieta Work Phone: Start: 04-14-2023 Ankle brachial press ure index MD Emilee Arrieta Work Phone: Plan of Treatment Date Care Activity Detail Author Start: 11-21-2022 Pulse volume recorder pneumoplethysmography US arterial pvr rest LE [facility] XR Thoracic spine 3 Views [facility] Payers Date Payer Category Payer Unknown 2022 Self-pay [id number] 1958 Medicaid [id number] 1958 Unknown [id number] 1955 Unknown [id number] [id number] [id number] 1955 Unknown [id number] [id number] 1955 Unknown [id number] Unknown [id number] Unknown [id number] 2.16.8 [id number] Unknown [id number] 2.16.8 [id number] Social History Date Type Detail Facility Start: 01-22-2018 End: 10-14-2023 Tobacco smoking status NDIS Smoker (finding) [facility] Start: 1955 Sex Assigned At Female F [facility] Sex Assigned At Sex Assigned At Bir th [facility] Other Medical Equipment Procedure Code Equipment Code [...] concerns whatsoever. Apr, Claudication (ICD-10 - I73.9) [facility] Other Evaluation note 01-06-2023 Note Date & [...] down to about 5 cigarettes a day. [facility] Other Evaluation note Note Date & Type Note Facility Evaluation note No assessment information availa [facility] Work Phone: Evaluation note Note Date & Type Note Facility Evaluation note No Information [facility] Other Evaluation note Note Date & Type Note Facility Evaluation note Diagnosis Onset Date Current every day smoker acu te PAD (peripheral artery disease) acute [facility] Work Phone: Evaluation note Note Date & Type Note Facility Evaluation note Diagnosis Onset Date Current every day smoker acu te PAD (peripheral artery disease) acute Post herpetic neuralgia acut e [facility] Work Phone: Evaluation note Note Date & Type Note Facility Evaluation note Diagnosis Onset Date Post herpetic neuralgia acut e Thoracic radiculitis acute [facility] Work Phone: History general Narrative - Reported Note Date & Type Note Facility History general Narrative - Reported Type Medical History hypotension [facility] Other History general Narrative - Reported Note [...] Cataract surgery 10/2015, Problem Status : Active, [facility] Other Summary Purpose Family History No Family [...] section and content) DATE CREATED AUTHOR 05/20/2022 [facility] DATE CREATED AUTHOR AUTHOR'S ORGANIZ ATION 06/26/2022 [facility] DATE CREATED AUTHOR AUTHOR'S ORGANIZ ATION 10/15/2023 [facility] DATE CREATED AUTHOR AUTHOR'S ORGANIZ ATION 03/13/2024 [facility] Care Teams (unrecognized sec tion [...] Team Status: Inactive Member Role Status Dates Emiele Arrieta MD Primary Care Provider Active YAYA [...] BE BASED ON THE PRIMARY CLINICAL RECORDS. [facility]. provides no warranty or guarantee of the accuracy or completeness of information in this document.
[2024-04-05 09:51] VITALS: BP 99/67; PULSE 107; TEMP 36.3; O2SAT 98
[2024-04-05 10:38] VITALS: BP 129/60; BP 152/67; PULSE 100; PULSE 94; O2SAT 97; O2SAT 98
[2024-04-05] MEDS: 0.9 % SODIUM CHLORIDE 10 ML SYRINGE - SALINE FLUSH INJ (10:42)
[2024-04-05] MEDS: LIDOCAINE HCL 2% 400 MG/20 ML MDV INJ (10:43)
[2024-04-05] MEDS: BUPIVACAINE HCL 0.25% PF 25 MG/10 ML VIAL INJ (10:43)
[2024-04-05] MEDS: DEXAMETHASONE SOD PHOS 10 MG/ML VIAL INJ (10:43)
[2024-04-05] MEDS: IOHEXOL 240 MG/ML - 10 ML VIAL 12 MG INJ (10:43)
--- NOTE | 2024-04-05 10:54 | P.ON_ITS ---
Date of procedure: 04/05/24 Pre-op diagnosis: Pain due to thoracic radiculopathy Post-op diagnosis: same as pre-op Procedure: Procedure: Right T6, 7 selective nerve root block Medications: Bupivacaine 0.25% 2cc, lidocaine 2% 1cc, dexamethasone 10mg The patient was seen and examined in the preoperative holding area.? Informed consent was obtained and placed on the chart.? Patient was brought to the medical procedure unit and placed in the prone position where a timeout was com pleted verifying the correct patient, procedure site, position, and planned special equipment using sterile aseptic technique.? Under direct fluoroscopic visualization a 25-gauge Quincke tipped spinal needle was advanced to the designated neural foramen where contrast dye was injected to show adequate spread.? The needle was inserted at level right T6-7. There was no evidence of vascular or adverse uptake.? Epidural spread was appreciated.? The above- mentioned injectate was then placed in a 1.5 mL aliquot preceded by negative aspiration.? The needle was removed. The needle was inserted and the procedure repeated at level right T7-8.? The surgery site was covered.? Patient was taken to the postprocedural recovery area and monitored for an appropriate length of time before found suitable for discharge in the accompaniment of a responsible adult. Anesthesia: Local Surgeon: Michaela Delgado Pathology: none sent Condition: stable Disposition: no change
== END 2024-04-05 10:51 | disposition home or self-care (01) ==
LOC: SURGOUT 09:20
PROVIDERS: PCP Family Medicine; Visit Provider Anesthesiology
DX: M54.14 Radiculopathy, thoracic region (principal)
CPT/HCPCS: 64479; 64480; J0665; J1100; Q9966

== ENCOUNTER 2024-04-14 10:03 | Outpatient (OUT) | payer MEDICARE, MEDICAID, SELFPAY ==
--- OUTSIDE RECORDS SUMMARY | 2024-04-14 10:21 | XMS_ITS | CCD ---
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 Name Role Phone Gideon VELASQUEZ Attending Unavailable MEENAKSHI, DR EMILEE Ohara Primary Care Unavailable PAY, DR TAYLOR Admitting Unavailable PAY, DR TAYLOR Attending Unavailable PAY, DR TAYLOR Consulting Unavailable MD Emilee Arrieta Primary Care Provider [phone] MD Emilee Arrieta Attending Provider [phone] Allison Iglesias Unavailable MD Emilee Arrieta Primary [...] Unavailable Danny WALLACE, Michaela Galo Attending Unavailable Michaela Delgado MD Attending Unavailable Allergies Allergy Classification Reported Allergen(s) Allergy Type Date of Onset Reaction(s) Facility (1 source) Contrast media; Translations: [Contrast Dye] Propensity to adverse reactions (disorder) [facility] Repository (1 source) Iodine (And Iodine Containting Drugs) Drug allergy (disorder) [facility] Repository Medications Current Medications Medication Drug [...] and other heart disease; Translations: [Atherosclerosis of [place] arteries of extremities with intermittent claudication, bilateral legs] Onset: 04-14-2023 Glaucoma (1 source) Unspecified glaucoma; Translations: [Unspecified glaucoma] Onset: 09-08-2015 Chronic Hemorrhoids (1 source) Hemorrhoids; Translations: [Unspecified hemorrhoids] Episodic Other aftercare (1 source) 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; Translations: [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 DRUG THERAPY] Onset: 05-13-2022 Episodic Other [...] ankle/arm indices [facility] [place] [address] Ultrasound Report Signed Patient: Ellie Montaño MR#: [id number] : 1955 Acct:[id number] Age/Sex: 68 / F ADM Date: 10/14/23 [facility]: [facility] Room: Type: [facility] Attending Dr: Allison Iglesias AGRICULTURAL EQUIPMENT MECHANICRyanC Ordering Provider: Allison Iglesias APRN Date of [...] Mark Bray M.D.10/14/2023 9:33 AM Dictation Location: [place] [address] Tech: Abril Barbour Transcribed By: RUBY 10/14/23932 Dictated By: Mark Bray MD 10/14/23932 Signed By: 10/14/23932 Normal [facility] US ankle/arm indiceson 04-14 US ankle/arm indices [facility] [place] [address] Ultrasound Report Signed Patient: Ellie Montaño MR#: [id number] : 1955 Acct:[id number] Age/Sex: 67 / F ADM Date: 04/14/23 Loc: [facility] Room: Type: [facility] Attending Dr: Allison Iglesias AGRICULTURAL EQUIPMENT MECHANIC-C Ordering Provider: Allison Iglesias APRN Date of [...] Mark Bray M.D.04/14/2023 2:43 PM Dictation Location: [place] [address] Tech: Luda Yousif Transcribed By: RUBY 04/14/231442 Dictated By: Mark Bray MD 04/14/231441 Signed By: 04/14/23 1443 [facility] US arterial pvr rest Joanne US arterial pvr rest LE [facility] [place] [address] Ultrasound Report Signed Patient: Ellie Montaño MR#: [id number] : 1955 Acct:[id number] Age/Sex: 67 / F ADM Date: 11/21/22 Loc: Room: Type: [facility] Attending Dr: Emilee Arrieta MD Ordering Provider: [...] John Bell MD11/25/2022 2:52 PM Dictation Location: [place] [address] Tech: Hailey Haddad Transcribed By: RUBY 11/25/221451 Dictated By: John Bell MD 11/25/221450 Signed By: 11/25/221451 [facility] ED Note-Physicianon 05-20-20 ED Note-Physician [id number] Normal [facility] Vital Signs Date Time Vital Sign Value Performing Clinician Facility 02-11-2024 10:54-0400 Body height 162.56 cm [facility] 02-11-2024 10:54-0400 Body mass index (BMI) [Ratio] 19 kg/m2 [facility] 02-11-2024 10:54-0400 Body weight 50.34 kg [facility] 02-11-2024 10:54-0400 Diastolic blood pressure 74 mm[Hg] [facility] 02-11-2024 10:54-0400 Heart rate 115 /min [facility] 02-11-2024 10:54-0400 Systolic blood pressure 118 mm[Hg] [facility] 11-25-2023 11:44-0400 Body height 162.56 cm [facility] 11-25-2023 11:44-0400 Body mass index (BMI) [Ratio] 19.9 kg/m2 [facility] 11-25-2023 11:44-0400 Body weight 52.61 kg [facility] 11-25-2023 11:44-0400 Diastolic blood pressure 82 mm[Hg] [facility] 11-25-2023 11:44-0400 Heart rate 91 /min [facility] 11-25-2023 11:44-0400 Systolic blood pressure 130 mm[Hg] [facility] 10-24-2023 13:24-0400 Body height 162.56 cm MD Emilee Arrieta Work Phone: [facility] 10-24-2023 13:24-0400 Body mass index (BMI) [Ratio] 19.9 kg/m2 MD Emilee Arrieta Work Phone: [facility] 10-24-2023 13:24-0400 Body weight 52.67 kg MD Emilee Arrieta Work Phone: [facility] 10-24-2023 13:24-0400 Diastolic blood pressure 78 mm[Hg] MD Emilee Arrieta Work Phone: [facility] 10-24-2023 13:24-0400 Heart rate 110 /min MD Emilee Arrieta Work Phone: [facility] 10-24-2023 13:24-0400 SaO2% (BldA) [Mass fraction] 99 % MD Emilee Arrieta Work Phone: [facility] 10-24-2023 13:24-0400 Systolic blood pressure 132 mm[Hg] MD Emilee Arrieta Work Phone: [facility] 10-14-2023 09:23-0400 Body height 162.56 cm MD Emilee Arrieta Work Phone: [facility] 10-14-2023 09:23-0400 Body mass index (BMI) [Ratio] 19.7 kg/m2 MD Emilee Arrieta Work Phone: [facility] 10-14-2023 09:23-0400 Body temperature 98 [degF] MD Emilee Arrieta Work Phone: [facility] 10-14-2023 09:23-0400 Body weight 52.16 kg MD Emilee Arrieta Work Phone: [facility] 10-14-2023 09:23-0400 Diastolic blood pressure 82 mm[Hg] MD Emilee Arrieta Work Phone: [facility] 10-14-2023 09:23-0400 Heart rate 70 /min MD Emilee Arrieta Work Phone: [facility] 10-14-2023 09:23-0400 SaO2% (BldA) [Mass fraction] 97 % MD Emilee Arrieta Work Phone: [facility] 10-14-2023 09:23-0400 Systolic blood pressure 140 mm[Hg] MD Emilee Arrieta Work Phone: [facility] 04-14-2023 09:30-0400 Body height 165.1 cm Allison Wildrosa Other [employer] Other 04-14-2023 09:30-0400 Body mass index (BMI) [Ratio] 17.47 kg/m2 Allison Wildo Other [employer] Other 04-14-2023 09:30-0400 Body temperature 96.4 [degF] Allison Wildo Other [employer] Other 04-14-2023 09:30-0400 Body weight 47.63 kg Allison Wildo Other [employer] Other 04-14-2023 09:30-0400 Diastolic blood pressure 74 mm[Hg] Allison Wildo Other [employer] Other 04-14-2023 09:30-0400 SaO2% (BldA) [Mass fraction] 99 % Allison Wildo Other [employer] Other 04-14-2023 09:30-0400 Systolic blood pressure 110 mm[Hg] Allison Wildo Other [employer] Other 01-06-2023 13:30-0400 Body height 165.1 cm Allison Wildo Other [employer] Other 01-06-2023 13:30-0400 Body mass index (BMI) [Ratio] 17.47 kg/m2 Allison Wildo Other [employer] Other 01-06-2023 13:30-0400 Body temperature 97.3 [degF] Allison Wildo Other [employer] Other 01-06-2023 13:30-0400 Body weight 47.63 kg Allison Wildo Other [employer] Other 01-06-2023 13:30-0400 Diastolic blood pressure 80 mm[Hg] Allison Iglesias Other [employer] Other 01-06-2023 13:30-0400 SaO2% (BldA) [Mass fraction] 99 % Allison Iglesias Other [employer] Other 01-06-2023 13:30-0400 Systolic blood pressure 122 mm[Hg] Allison Iglesias Other [employer] Other Encounters Encounter Date Encounter Type Care Provider Facility Start: 04-05-2024 End: 04-05-2024 ambulatory Michaela Delgado MD Facility:[facility] Start: 03-01-2024 End: 03-01-2024 ambulatory Michaela Delgado MD Facility:[facility] Start: 02-11-2024 End: 02-11-2024 ambulatory [facility] Work Phone: Start: 02-11-2024 End: 02-11-2024 Patient encounter procedure [facility] Physician [facility] Work Phone: Start: 11-25-2023 End: 11-25-2023 Patient encounter procedure [facility] Physician [facility] Work Phone: Start: 10-24-2023 End: 10-24-2023 ambulatory MD Emilee Arrieta Work Phone: [facility] Work Phone: Start: 10-24-2023 End: 10-24-2023 Patient encounter procedure MD Emilee Arrieta Work Phone: [facility] Physician [facility] Work Phone: Start: 10-14-2023 End: 10-14-2023 ambulatory Emilee Arrieta Facility:[facility] Start: 10-14-2023 End: 10-14-2023 ambulatory MD Emilee Arrieta Work Phone: [facility] Work Phone: Start: 10-14-2023 End: 10-14-2023 Patient encounter procedure MD Emilee Arrieta Work Phone: [facility] Physician [facility] Vascular Surgery Work Phone: Start: 10-08-2023 Non-patient / Non-visit MD Kristy Arrieta Work Phone: [facility] Physician [facility] [employer] Work Phone: Start: 04-14-2023 End: 04-14-2023 Patient encounter procedure Allison Iglesias Other [facility] Start: 04-14-2023 End: 04-14-2023 ambulatory Emilee Arrieta Facility:[facility] Start: 04-14-2023 End: 04-14-2023 ambulatory MD Emilee Arrieta Work Phone: [facility] [email or web address] Other Start: 01-06-2023 End: 01-06-2023 ambulatory Allison Iglesias Other [facility] [email or web address] Other Start: 01-06-2023 FQ visit new patient Allison Healycameron lee [facility] Vascular Surgery Start: 01-06-2023 Telephone encounter Allison Macdonald [employer]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 Start: 11-21-2022 End: 11-21-2022 ambulatory Emilee Arrieta Facility:[facility] Start: 11-21-2022 End: 11-21-2022 ambulatory MD Emilee Arrieta Work Phone: [facility] Work Phone: Start: 11-21-2022 End: 11-21-2022 Patient encounter procedure MD Emilee Arrieta Work Phone: [facility]-Ultrasound [place] Work Phone: Start: 05-24-2022 ambulatory Gideon VELASQUEZ Facility : [facility] Start: 05-10-2022 End: 05-10-[address] EMILEE ARRIETA Facility: Start: 02-08-2022 Adult health examination Allison Iglesias Other [facility] [email or web address] Other Procedures Date Procedure Procedure Detail Performing Clinician Start: 10-14-2023 Ankle brachial press ure index MD Emilee Arrieta Work Phone: Start: 04-14-2023 Ankle brachial press ure index MD Emilee Arrieta Work Phone: Plan of Treatment Date Care Activity Detail Author Start: 11-21-2022 Pulse volume recorder pneumoplethysmography US arterial pvr rest [facility] XR Thoracic spine 3 Views [facility] Payers Date Payer Category Payer Unknown 2022 Self-pay [id number] 1958 Medicaid [id number] 1958 Unknown [id number] 1955 Unknown [id number] 2.16.8 [id number] 1955 Unknown [id number] 2.16.84 [id number] 1955 Unknown [id number] [id number]. [id number] 1955 Unknown [id number] 2.16. [id number] Unknown [id number] Unknown [id number] 2.16.8 [id number] Unknown [id number] 2.16.8 [id number] Social History Date Type Detail Facility Start: 01-22-2018 End: 10-14-2023 Tobacco smoking status NHIS Smoker (finding) [facility] Start: 1955 Sex Assigned At Female F [facility] Sex Assigned At Sex Assigned At Bir th [employer] Other Medical Equipment Procedure Code Equipment Code [...] concerns whatsoever. Apr, Claudication (ICD-10 - I73.9) [employer] Other Evaluation note 01-06-2023 Note Date & [...] down to about 5 cigarettes a day. [facility] [email or web address] Other Evaluation note Note Date & Type Note Facility Evaluation note No assessment information availa [facility] Work Phone: Evaluation note Note Date & Type Note Facility Evaluation note No Information [facility] [employer] Other Evaluation note Note Date & Type Note Facility Evaluation note Diagnosis Onset Date Current every day smoker acu te PAD (peripheral artery disease) acute [facility] Work Phone: Evaluation note Note Date & Type Note Facility Evaluation note Diagnosis Onset Date Current every day smoker acu te PAD (peripheral artery disease) acute Post herpetic neuralgia actn e [facility] Work Phone: Evaluation note Note Date & Type Note Facility Evaluation note Diagnosis Onset Date Post herpetic neuralgia acut e Thoracic radiculitis [facility] Work Phone: History general Narrative - Reported Note Date & Type Note Facility History general Narrative - Reported Type Medical History hypotension [employer] Other History general Narrative - Reported Note [...] Cataract surgery 10/2015, Problem Status : Active, [employer] Other Summary Purpose Family History No Family History Records Found Relationship Condition Age at Onset Recorded Date/T jimmy father Unknown Heart disease Unknown Not Specified Unknown Relationship Condition Age at Onset Recorded Date/T jimmy father Unknown Heart disease Unknown mother Unknown Advance Directives No Advanced Directives Records Found Advance Directive Response Recorded Date/ Time Advance Directives No January 21 18 10:08am Chief Complaint and Reason for Visit [...] section and content) DATE CREATED AUTHOR 05/20/2022 [facility] DATE CREATED AUTHOR AUTHOR'S ORGANIZ ATION 06/26/2022 [facility] DATE CREATED AUTHOR AUTHOR'S ORGANIZ ATION 10/15/2023 [facility] DATE CREATED AUTHOR AUTHOR'S ORGANIZ ATION 04/12/2024 [facility] Care Teams (unrecognized sec tion and content) [...] Care Provider Active Start: October 14, 2023 ISAÍAS FaustC Attending Provider Active Start: October 14, 2023 Team Status: Inactive Member Role Status Dates Emilee Arrieta MD Primary Care Provider, Attending Lance tilley Active Team Status: Inactive Member Role Status Dates Emilee Arrieta MD Primary Care Provider Active ISAÍAS FaustC Attending Provider Active Team Status: Inactive Member Role Status Dates Emilee Arrieta MD Primary Care Provider Active Start: October 14, 2023 End: October 14, 2023 Allison Iglesias NP-C Attending [...] BE BASED ON THE PRIMARY CLINICAL RECORDS. [email or web address] provides no warranty or guarantee of the accuracy or completeness of information in this document.
--- NOTE | 2024-04-14 10:22 | P.CN_ITS ---
Consult Note: HPI Data of Consult Patient: new to practice Consult date: 03/01/24 Requesting Physician: Charley Cameron NP Primary Care Provider: Emilee Mobley MD Consult Narrative Reason for consult: thoracic radiating pain Narrative: 68yof who presents for evaluation. >6 months of radiating thoracic pain into left breast initially, now also into right breast. denies any inciting event. does endorse history of shingles with thoracic manifestation, but states rash was lower than her current area of pain. thoracic xr does not show any significant pathology. recent thoracic MRI unremarkable. has tried tramadol, with some benefit. has engaged in provider directed home exercises >6 weeks, without lasting benefit. denies adverse med side effects. gabapentin 100mg AM 200mg afternoon and 300mg HS with mild benefit. recently underwent right T6,7 SNRB with >80% improvement for 1 day no ongoing relief. cc:: CC: Charley Cameron NP [facility] Medical History (Updated 04/14/24 @ 10:28 by Charley Cameron NP) Hypotension ?I95.9 - Hypotension, unspecified (ICD-10) Meds Home Medications and Allergies Home Medications ?Medication ?Instructions ?Recorded ?Confirmed ?Type amlodipine 2.5 mg tablet 2.5 mg PO DAILY 03/01/24 04/05/24 History aspirin 81 mg tablet,delayed 81 mg PO DAILY 03/01/24 04/05/24 History release (Adult Aspirin Regimen) atorvastatin 20 mg tablet 20 mg PO DAILY 03/01/24 04/05/24 History gabapentin 300 mg capsule 300 mg PO TID #90 caps 03/01/24 04/05/24 Rx tramadol 50 mg tablet 50 mg PO BID 03/01/24 04/05/24 History Allergies Allergy/AdvReac Type Severity Reaction Status Date / Time No Known Drug Allergies Allergy Verified 04/05/24 09:57 Exam Narrative Exam Narrative: Psych-alert and oriented x 3. Attentive and appropriate, constitutionally normal, displays normal mood and affect per situation. There are no obvious deficits in memory, reasoning, or intellect.? Skin-no obvious rashes, bruising, erythema noted to the patient's area of pain.? Extremities- extremities are warm with minimal edema and palpable pulses. Thoracic-tenderness to palpation noted in the thoracic spine and paraspinal musculature. Pain is not elicited with flexion, extension, and lateral rotation of the lumbar spine. Range of motion is not diminished with these motions. Facet loading maneuvers are negative.? Sensory-no notable sensory deficits in the bilateral lower extremities to touch or pinprick in all dermatomal distributions with the exception to decreased sensation to the bilateral T6, 7, 8 dermatomal distribution Coordination remains intact.? Gait remains non-antalgic Assessment and Plan Assessment and Plan (1) Intercostal neuralgia: (2) Post herpetic neuralgia: (3) Thoracic radiculopathy: Plan bilateral T6,7 T7,8 intercostal nerve block x2 working towards RFA change gabapentin 300mg AM and 300mg HS, can increase to TID as tolerated start transdermal therapeutics 6a TID-QID to affected area for PHN and intercostal neuralgia f/u after each injection
== END 2024-04-14 10:04 | disposition home or self-care (01) ==
LOC: PM 10:03
PROVIDERS: PCP Family Medicine; Visit Provider Nurse Practitioner
DX: G58.0 Intercostal neuropathy (principal); B02.29 Other postherpetic nervous system involvement; M54.14 Radiculopathy, thoracic region
CPT/HCPCS: G0463

== ENCOUNTER 2024-04-26 08:06 | Day surgery (SDC) | payer MEDICARE, MEDICAID, SELFPAY ==
--- OUTSIDE RECORDS SUMMARY | 2024-04-26 08:11 | XMS_ITS | CCD ---
Author Organization [facility] Care Team Providers Care Filbert Grower Name Role Phone Gideon VELASQUEZ Attending Unavailable MEENAKSHI, DR EMILEE Ohara Primary Care Unavailable PAY, DR TAYLOR Admitting Unavailable PAY, DR TAYLOR Attending Unavailable PAY, DR TAYLOR Consulting Unavailable MD Emilee Arrieta Primary Care Provider [phone] MD Emilee Arrieta Attending Provider [phone] Allison Iglesias Unavailable MD Emilee Arrieta Primary [...] [Contrast Dye] Propensity to adverse reactions (disorder) [facility] Repository (1 source) Iodine (And Iodine Containting Drugs) Drug allergy (disorder) [facility] Repository Medications Current Medications Medication Drug [...] and other heart disease; Translations: [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, bilateral legs] Onset: 04-14-2023 Glaucoma (1 source) Unspecified glaucoma; Translations: [Unspecified glaucoma] Onset: 09-08-2015 Chronic Hemorrhoids (1 source) Hemorrhoids; Translations: [Unspecified hemorrhoids] Episodic Other aftercare (1 source) Other intermediate (current) drug therapy; Translations: [OTH FPC CURRENT DRUG THERAPY] Onset: 05-13-2022 Episodic Other [...] US ankle/arm indiceson 10-13 US ankle/arm indices [facility] [place] [address] Ultrasound Report Signed Patient: Ellie Montaño MR#: [id number] 899 : 1955 Acct:[id number] Age/Sex: 68 / F ADM Date: 10/14/23 Loc: [facility] Room: Type: [facility] Attending Dr: Allison Iglesias MACHINE WASHERRyanC Ordering Provider: Allison Iglesias APRN Date of [...] Mark Bray M.D.10/14/2023 9:33 AM Dictation Location: [place] [address] Tech: Abril Barbour Transcribed By: RUBY 10/14/23932 Dictated By: Mark Bray MD 10/14/23932 Signed By: 10/14/23932 Normal [facility] US ankle/arm indiceson 04-14 US ankle/arm indices [facility] [place] [address] Ultrasound Report Signed Patient: Ellie Montaño MR#: [id number] : 1955 Acct:[id number] Age/Sex: 67 / F ADM Date: 04/14/23 Loc: [facility] Room: Type: [facility] Attending Dr: Allison Iglesias MACHINE WASHER-C Ordering Provider: Allison Iglesias APRN Date of [...] Mark Bray M.D.04/14/2023 2:43 PM Dictation Location: [place] [address] Tech: Luda Yousif Transcribed By: RUBY 04/14/231442 Dictated By: Mark Bray MD 04/14/231441 Signed By: 04/14/23 1443 [facility] US arterial pvr rest Joanne US arterial pvr rest LE [facility] [place] [address] Ultrasound Report Signed Patient: Ellie Montaño MR#: [id number] : 1955 Acct:[id number] Age/Sex: 67 / F ADM Date: 11/21/22 Loc: Room: Type: [facility] Attending Dr: Emilee Arrieta MD Ordering [...] John Bell MD11/25/2022 2:52 PM Dictation Location: [place] [address] Tech: Hailey Haddad Transcribed By: RUBY 11/25/221451 Dictated By: John Bell MD 11/25/221450 Signed By: 11/25/221451 [facility] ED Note-Physicianon 05-20-20 ED Note-Physician [id number]:[id number] [facility] Vital Signs Date Time Vital Sign Value Performing Clinician Facility 02-11-2024 10:54-0400 Body height 162.56 cm [facility] 02-11-2024 10:54-0400 Body mass index (BMI) [Ratio] 19 kg/m2 [facility] 02-11-2024 10:54-0400 Body weight 50.34 kg [facility] 02-11-2024 10:54-0400 Diastolic blood pressure 74 mm[Hg] [facility] 02-11-2024 10:54-0400 Heart rate 115 /min [facility] 02-11-2024 10:54-0400 Systolic blood pressure 118 mm[Hg] [facility] 11-25-2023 11:44-0400 Body height 162.56 cm [facility] 11-25-2023 11:44-0400 Body mass index (BMI) [Ratio] 19.9 kg/m2 [facility] 11-25-2023 11:44-0400 Body weight 52.61 kg [facility] 11-25-2023 11:44-0400 Diastolic blood pressure 82 mm[Hg] [facility] 11-25-2023 11:44-0400 Heart rate 91 /min [facility] 11-25-2023 11:44-0400 Systolic blood pressure 130 mm[Hg] [facility] 10-24-2023 13:24-0400 Body height 162.56 cm MD Emilee Arrieta Work Phone: [facility] 10-24-2023 13:24-0400 Body mass index (BMI) [Ratio] 19.9 kg/m2 MD Emilee Arrieta Work Phone: [facility] 10-24-2023 13:24-0400 Body weight 52.67 kg MD Emilee Arrieta Work Phone: [facility] 10-24-2023 13:24-0400 Diastolic blood pressure 78 mm[Hg] MD Emilee Arrieta Work Phone: [facility] 10-24-2023 13:24-0400 Heart rate 110 /min MD Emilee Arrieta Work Phone: [facility] 10-24-2023 13:24-0400 SaO2% (BldA) [Mass fraction] 99 % MD Emilee Arrieta Work Phone: [facility] 10-24-2023 13:24-0400 Systolic blood pressure 132 mm[Hg] MD Emilee Arrieta Work Phone: [facility] 10-14-2023 09:23-0400 Body height 162.56 cm MD Emilee Arrieta Work Phone: [facility] 10-14-2023 09:23-0400 Body mass index (BMI) [Ratio] 19.7 kg/m2 MD Emilee Arrieta Work Phone: [facility] 10-14-2023 09:23-0400 Body temperature 98 [degF] MD Emilee Arrieta Work Phone: [facility] 10-14-2023 09:23-0400 Body weight 52.16 kg MD Emilee Arrieta Work Phone: [facility] 10-14-2023 09:23-0400 Diastolic blood pressure 82 mm[Hg] MD Emilee Arrieta Work Phone: [facility] 10-14-2023 09:23-0400 Heart rate 70 /min MD Emilee Arrieta Work Phone: [facility] 10-14-2023 09:23-0400 SaO2% (BldA) [Mass fraction] 97 % MD Emilee Arrieta Work Phone: [facility] 10-14-2023 09:23-0400 Systolic blood pressure 140 mm[Hg] MD Emilee Arrieta Work Phone: [facility] 04-14-2023 09:30-0400 Body height 165.1 cm Allison Wildrosa Other [facility] Other 04-14-2023 09:30-0400 Body mass index (BMI) [Ratio] 17.47 kg/m2 Allison Wildo Other [facility] Other 04-14-2023 09:30-0400 Body temperature 96.4 [degF] Allison Wildo Other [facility] Other 04-14-2023 09:30-0400 Body weight 47.63 kg Allison Wildo Other [facility] Other 04-14-2023 09:30-0400 Diastolic blood pressure 74 mm[Hg] Allison Wildo Other [facility] Other 04-14-2023 09:30-0400 SaO2% (BldA) [Mass fraction] 99 % Allison Wildo Other [facility] Other 04-14-2023 09:30-0400 Systolic blood pressure 110 mm[Hg] Allison Wildo Other [facility] Other 01-06-2023 13:30-0400 Body height 165.1 cm Allison Wildo Other [facility] Other 01-06-2023 13:30-0400 Body mass index (BMI) [Ratio] 17.47 kg/m2 Allison Wildo Other [facility] Other 01-06-2023 13:30-0400 Body temperature 97.3 [degF] Allison Wildo Other [facility] Other 01-06-2023 13:30-0400 Body weight 47.63 kg Allison Wildo Other [facility] Other 01-06-2023 13:30-0400 Diastolic blood pressure 80 mm[Hg] Allison Iglesias Other [facility] Other 01-06-2023 13:30-0400 SaO2% (BldA) [Mass fraction] 99 % Allison Iglesias Other [facility] Other 01-06-2023 13:30-0400 Systolic blood pressure 122 mm[Hg] Allison Iglesias Other [facility] Other Encounters Encounter Date Encounter Type Care Provider Facility Start: 04-05-2024 End: 04-05-2024 ambulatory Michaela Delgado MD Facility:[facility] Start: 03-01-2024 End: 03-01-2024 ambulatory Michaela Delgado MD Facility:[facility] Start: 02-11-2024 End: 02-11-2024 ambulatory [facility] Work Phone: Start: 02-11-2024 End: 02-11-2024 Patient encounter procedure [facility] Physician [facility] Work Phone: Start: 11-25-2023 End: 11-25-2023 Patient encounter procedure On License Of [facility] Physician [facility] Work Phone: Start: 10-24-2023 End: 10-24-2023 ambulatory MD Emilee Arrieta Work Phone: [facility] Work Phone: Start: 10-24-2023 End: 10-24-2023 Patient encounter procedure MD Emilee Arrieta Work Phone: [facility] Physician [facility] Work Phone: Start: 10-14-2023 End: 10-14-2023 ambulatory Emilee Arrieta Facility:[facility] Start: 10-14-2023 End: 10-14-2023 ambulatory MD Emilee Arrieta Work Phone: [facility] Work Phone: Start: 10-14-2023 End: 10-14-2023 Patient encounter procedure MD Emilee Arrieta Work Phone: On License [facility] Physician [facility] Vascular Surgery Work Phone: Start: 10-08-2023 Non-patient / Non-visit MD Kristy Arrieta Work Phone: On License [facility] Physician [facility] Work Phone: Start: 04-14-2023 End: 04-14-2023 Patient encounter procedure Allison Iglesias Other [facility] Start: 04-14-2023 End: 04-14-2023 ambulatory Emilee Arrieta Facility:[facility] Start: 04-14-2023 End: 04-14-2023 ambulatory MD Emilee Arrieta Work Phone: [facility] [employer] Other Start: 01-06-2023 End: 01-06-2023 ambulatory Allison Iglesias Other [facility] Other Start: 01-06-2023 FQ visit new patient Allison Healycameron lee [facility] Vascular Surgery Start: 01-06-2023 Telephone encounter Allison Macdonald [employer] Start: 11-21-2022 End: 11-21-2022 ambulatory Emilee Arrieta Facility:[facility] Start: 11-21-2022 End: 11-21-2022 ambulatory MD Emilee Arrieta Work Phone: [facility] Work Phone: Start: 11-21-2022 End: 11-21-2022 Patient encounter procedure MD Emilee Arrieta Work Phone: [facility]Ultrasound [facility] [place] Work Phone: Start: 05-24-2022 ambulatory Gideon VELASQUEZ Facility : [facility] Start: 05-10-2022 End: 05-10-[address] EMILEE ARRIETA Facility: Start: 02-08-2022 Adult health examination Allison Iglesias Other [facility] [employer] Other Procedures Date Procedure Procedure Detail Performing Clinician Start: 10-14-2023 Ankle brachial press ure index MD Emilee Arrieta Work Phone: Start: 04-14-2023 Ankle brachial press ure index MD Emilee Arrieta Work Phone: Plan of Treatment Date Care Activity Detail Author Start: 11-21-2022 Pulse volume recorder pneumoplethysmography US arterial pvr rest [facility] XR Thoracic spine 3 Views [facility] Payers Date Payer Category Payer Unknown 2022 Self-pay [id number] 1958 Medicaid [id number] 1958 Unknown [id number] 1955 Unknown [id number] [id number] [id number] 1955 Unknown [id number] [id number] 1955 Unknown [id number] 2.16. [id number] 1955 Unknown [id number] 2.16. [id number] Unknown [id number] Unknown [id number] 2.16.8 [id number] Unknown [id number] 2.16.8 [id number] Social History Date Type Detail Facility Start: 01-22-2018 End: 10-14-2023 Tobacco smoking status NHIS Smoker (finding) [facility] Start: 1955 Sex Assigned At Female F [facility] Sex Assigned At Sex Assigned At Bir th [facility] Other Medical Equipment Procedure Code Equipment Code [...] concerns whatsoever. Apr, Claudication (ICD-10 - I73.9) [facility] Other Evaluation note 01-06-2023 Note Date & [...] down to about 5 cigarettes a day. [facility] Other Evaluation note Note Date & Type Note Facility Evaluation note No assessment information availa [facility] Work Phone: Evaluation note Note Date & Type Note Facility Evaluation note No Information Merged With [facility] Other Evaluation note Note Date & Type Note Facility Evaluation note Diagnosis Onset Date Current every day smoker acu te PAD (peripheral artery disease) acute [facility] Work Phone: Evaluation note Note Date & Type Note Facility Evaluation note Diagnosis Onset Date Current every day smoker acu te PAD (peripheral artery disease) acute Post herpetic neuralgia acnd e [facility] Work Phone: Evaluation note Note Date & Type Note Facility Evaluation note Diagnosis Onset Date Post herpetic neuralgia acut e Thoracic radiculitis [facility] Work Phone: History general Narrative - Reported Note Date & Type Note Facility History general Narrative - Reported Type Medical History hypotension [facility] Other History general Narrative - Reported Note [...] Cataract surgery 10/2015, Problem Status : Active, [facility] Other Summary Purpose Family History No Family [...] section and content) DATE CREATED AUTHOR 05/20/2022 [facility] DATE CREATED AUTHOR AUTHOR'S ORGANIZ ATION 06/26/2022 [facility] DATE CREATED AUTHOR AUTHOR'S ORGANIZ ATION 10/15/2023 [facility] DATE CREATED AUTHOR AUTHOR'S ORGANIZ ATION 04/12/2024 [facility] Care Teams (unrecognized sec tion and content) [...] BE BASED ON THE PRIMARY CLINICAL RECORDS. [employer] provides no warranty or guarantee of the accuracy or completeness of information in this document.
[2024-04-26 08:27] VITALS: BP 122/71; PULSE 87; TEMP 36.3; O2SAT 96
[2024-04-26 09:17] VITALS: BP 126/78; PULSE 91; O2SAT 96
[2024-04-26] MEDS: BUPIVACAINE HCL 0.25% PF 25 MG/10 ML VIAL 18 ML INJ (09:18)
[2024-04-26] MEDS: TRIAMCINOLONE ACETONIDE 40 MG/ML VIAL 80 MG INJ (09:19)
[2024-04-26] MEDS: LIDOCAINE HCL 2% 400 MG/20 ML MDV INJ (09:19)
[2024-04-26] MEDS: IOHEXOL 240 MG/ML - 10 ML VIAL 24 MG INJ (09:19)
[2024-04-26 09:20] VITALS: BP 144/93; PULSE 97; O2SAT 96
--- NOTE | 2024-04-26 09:28 | W.PM.PROCNOT ---
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 A timeout was completed verifying the correct patient, procedure site, position, and special equipment.? The left T6 rib was contacted with the needle tip 1 cm lateral to the costotransverse junction and the needle tip was walked caudally.? Omnipaque dye was injected to show adequate spread.? The above-mentioned injectate was placed in 1 mL aliquots and the procedure was repeated at left T7, T8. The same procedure was then completed on the opposite side.? The patient tolerated the procedures well and was found suitable for discharge in the accompaniment of a responsible adult. Anesthesia: Local Surgeon: Michaela Delgado Pathology: none sent Condition: stable Disposition: no change
--- NOTE | 2024-04-26 11:55 | PC.NURSE ---
SPO2 100% on room air upon sitting up on side of bed in recover
== END 2024-04-26 09:35 | disposition home or self-care (01) ==
LOC: SURGOUT 08:07
PROVIDERS: PCP Family Medicine; Visit Provider Anesthesiology
DX: G58.0 Intercostal neuropathy (principal)
CPT/HCPCS: 64420; 64421; J0665; J3301; Q9966

== ENCOUNTER 2024-05-05 08:41 | Outpatient (OUT) | payer MEDICARE, MEDICAID, SELFPAY ==
--- OUTSIDE RECORDS SUMMARY | 2024-05-05 08:45 | XMS_ITS | CCD ---
Author Organization [facility] Care Team Providers Care Luster Applicator Name Role Phone Gideon VELASQUEZ Attending Unavailable MEENAKSHI, DR EMILEE Ohara Primary Care Unavailable PAY, DR TAYLOR Admitting Unavailable PAY, DR TAYLOR Attending Unavailable PAY, DR TAYLOR Consulting Unavailable MD Emilee Arrieta Primary Care Provider [phone] MD Emilee Arrieta Attending Provider [phone] Allison Iglesias Unavailable MD Emilee Arrieta Primary [...] Propensity to adverse reactions (disorder) [facility] Repository (1 source) Iodine (And Iodine Containting Drugs) Drug allergy (disorder) [facility] Repository Medications Current Medications Medication Drug [...] and other heart disease; Translations: [Atherosclerosis of [place] arteries of extremities with intermittent claudication, bilateral legs] Onset: 04-14-2023 Glaucoma (1 source) Unspecified glaucoma; Translations: [Unspecified glaucoma] Onset: 09-08-2015 Chronic Hemorrhoids (1 source) Hemorrhoids; Translations: [Unspecified hemorrhoids] Episodic Other aftercare (1 source) Other retirement (current) drug therapy; Translations: [OTH JAIL CURRENT DRUG THERAPY] Onset: 05-13-2022 Episodic Other [...] US ankle/arm indiceson 10-13 US ankle/arm indices [facility] [place] [address] Ultrasound Report Signed Patient: Ellie Montaño MR#: [id number] : 1955 Acct:[id number] Age/Sex: 68 / F ADM Date: 10/14/23 Loc: [facility] Room: Type: [facility] Attending Dr: Allison Iglesias 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 Ordering Provider: Allison Iglesias APRN Date of [...] Mark Bray M.D.10/14/2023 9:33 AM Dictation Location: [place] [address] Tech: Abril Barbour Transcribed By: RUBY 10/14/23932 Dictated By: Mark Bray MD 10/14/23932 Signed By: 10/14/23932 Normal [facility] US ankle/arm indiceson 04-14 US ankle/arm indices [facility] [place] [address] Ultrasound Report Signed Patient: Ellie Montaño MR#: [id number] : 1955 Acct:[id number] Age/Sex: 67 / F ADM Date: 04/14/23 Loc: [facility] Room: Type: [facility] Attending Dr: Allison Iglesias TABLE [employer]ER-C Ordering Provider: Allison Iglesias APRN Date of [...] Mark Bray M.D.04/14/2023 2:43 PM Dictation Location: [place] [address] Tech: Luda Yousif Transcribed By: RUBY 04/14/231442 Dictated By: Mark Bray MD 04/14/231441 Signed By: 04/14/23 1443 [facility] US arterial pvr rest Joanne US arterial pvr rest [facility] [place] [address] Ultrasound Report Signed Patient: Ellie Montaño MR#: [id number] : 1955 Acct:[id number] Age/Sex: 67 / F ADM Date: 11/21/22 Loc: Room: Type: [facility] Attending Dr: Emilee Arrieta MD Ordering [...] John Bell MD11/25/2022 2:52 PM Dictation Location: [place] [address] Tech: Hailey Haddad Transcribed By: RUBY 11/25/221451 Dictated By: John Bell MD 11/25/221450 Signed By: 11/25/221451 [facility] ED Note-Physicianon 05-20-20 ED Note-Physician [id number] Normal Gonzalez [facility] Vital Signs Date Time Vital Sign Value Performing Clinician Facility 02-11-2024 10:54-0400 Body height 162.[address] [facility] 02-11-2024 10:54-0400 Body mass index (BMI) [Ratio] 19 kg/m2 [facility] 02-11-2024 10:54-0400 Body weight 50.[address] [facility] 02-11-2024 10:54-0400 Diastolic blood pressure 74 mm[Hg] [facility] 02-11-2024 10:54-0400 Heart rate 115 /min [facility] 02-11-2024 10:54-0400 Systolic blood pressure 118 mm[Hg] [facility] 11-25-2023 11:44-0400 Body height 162.[address] [facility] 11-25-2023 11:44-0400 Body mass index (BMI) [Ratio] 19.9 kg/m2 [facility] 11-25-2023 11:44-0400 Body weight 52.[address] [facility] 11-25-2023 11:44-0400 Diastolic blood pressure 82 mm[Hg] [facility] 11-25-2023 11:44-0400 Heart rate 91 /min [facility] 11-25-2023 11:44-0400 Systolic blood pressure 130 mm[Hg] [facility] 10-24-2023 13:24-0400 Body height 162.56 cm MD Emilee Arrieta Work Phone: [facility] 10-24-2023 13:24-0400 Body mass index (BMI) [Ratio] 19.9 kg/m2 MD Emilee Arrieta Work Phone: [facility] 10-24-2023 13:24-0400 Body weight 52.67 kg MD Emilee Arrieta Work Phone: [facility] 10-24-2023 13:24-0400 Diastolic blood pressure 78 mm[Hg] MD Emilee Arrieta Work Phone: [facility] 10-24-2023 13:24-0400 Heart rate 110 /min MD Emilee Arrieta Work Phone: [facility] 10-24-2023 13:24-0400 SaO2% (BldA) [Mass fraction] 99 % MD Emilee Arrieta Work Phone: [facility] 10-24-2023 13:24-0400 Systolic blood pressure 132 mm[Hg] MD Emilee Arrieta Work Phone: [facility] 10-14-2023 09:23-0400 Body height 162.56 cm MD Emilee Arrieta Work Phone: [facility] 10-14-2023 09:23-0400 Body mass index (BMI) [Ratio] 19.7 kg/m2 MD Emilee Arrieta Work Phone: [facility] 10-14-2023 09:23-0400 Body temperature 98 [degF] MD Emilee Arrieta Work Phone: [facility] 10-14-2023 09:23-0400 Body weight 52.16 kg MD Emilee Arrieta Work Phone: [facility] 10-14-2023 09:23-0400 Diastolic blood pressure 82 mm[Hg] MD Emilee Arrieta Work Phone: [facility] 10-14-2023 09:23-0400 Heart rate 70 /min MD Emilee Arrieta Work Phone: [facility] 10-14-2023 09:23-0400 SaO2% (BldA) [Mass fraction] 97 % MD Emilee Arrieta Work Phone: [facility] 10-14-2023 09:23-0400 Systolic blood pressure 140 mm[Hg] MD Emilee Arrieta Work Phone: [facility] 04-14-2023 09:30-0400 Body height 165.1 cm Allison Wildrosa Other [facility] Other 04-14-2023 09:30-0400 Body mass index (BMI) [Ratio] 17.47 kg/m2 Allison Wildo Other [facility] Other 04-14-2023 09:30-0400 Body temperature 96.4 [degF] Allison Wildo Other [facility] Other 04-14-2023 09:30-0400 Body weight 47.63 kg Allison Wildo Other [facility] Other 04-14-2023 09:30-0400 Diastolic blood pressure 74 mm[Hg] Allison Widlo Other [facility] Other 04-14-2023 09:30-0400 SaO2% (BldA) [Mass fraction] 99 % Allison Wildo Other [facility] Other 04-14-2023 09:30-0400 Systolic blood pressure 110 mm[Hg] Allison Wildo Other [facility] Other 01-06-2023 13:30-0400 Body height 165.1 cm Allison Wildo Other [facility] Other 01-06-2023 13:30-0400 Body mass index (BMI) [Ratio] 17.47 kg/m2 Allison Wildo Other [facility] Other 01-06-2023 13:30-0400 Body temperature 97.3 [degF] Allison Wildo Other [facility] Other 01-06-2023 13:30-0400 Body weight 47.63 kg Allison Wildo Other [facility] Other 01-06-2023 13:30-0400 Diastolic blood pressure 80 mm[Hg] Allison Iglesias Other [facility] Other 01-06-2023 13:30-0400 SaO2% (BldA) [Mass fraction] 99 % Allison Iglesias Other [facility] Other 01-06-2023 13:30-0400 Systolic blood pressure 122 mm[Hg] Allison Iglesias Other [facility] Other Encounters Encounter Date Encounter Type Care Provider Facility Start: 04-05-2024 End: 04-05-2024 ambulatory Michaela Delgado MD Facility:[facility] Start: 03-01-2024 End: 03-01-2024 ambulatory Michaela Delgado MD Facility:[facility] Start: 02-11-2024 End: 02-11-2024 ambulatory [facility] Work Phone: Start: 02-11-2024 End: 02-11-2024 Patient encounter procedure [facility] Work Phone: Start: 11-25-2023 End: 11-25-2023 Patient encounter procedure [facility] Work Phone: Start: 10-24-2023 End: 10-24-2023 ambulatory MD Emilee Arrieta Work Phone: [facility] Work Phone: Start: 10-24-2023 End: 10-24-2023 Patient encounter procedure MD Emilee Arrieta Work Phone: [facility] Work Phone: Start: 10-14-2023 End: 10-14-2023 ambulatory Emilee Arrieta Facility:[facility] Start: 10-14-2023 End: 10-14-2023 ambulatory MD Emilee Arrieta Work Phone: [facility] Work Phone: Start: 10-14-2023 End: 10-14-2023 Patient encounter procedure MD Emilee Arrieta Work Phone: [facility] Vascular Surgery Work Phone: Start: 10-08-2023 Non-patient / Non-visit MD Kristy Arrieta Work Phone: [facility] [employer] Work Phone: Start: 04-14-2023 End: 04-14-2023 Patient encounter procedure Allison Iglesias Other [facility] Vascular Start: 04-14-2023 End: 04-14-2023 ambulatory Emilee Arrieta Facility:[facility] Start: 04-14-2023 End: 04-14-2023 ambulatory MD Emilee Arrieta Work Phone: [facility] [employer] Other Start: 01-06-2023 End: 01-06-2023 ambulatory Allison Iglesias Other [facility] [employer] Other Start: 01-06-2023 FQ visit new patient Allison Healycameron lee [facility] Vascular Surgery Start: 01-06-2023 Telephone encounter Allison Macdonald Student Services Advisor Start: 11-21-2022 End: 11-21-2022 ambulatory Emilee Arrieta Facility:[facility] Start: 11-21-2022 End: 11-21-2022 ambulatory MD Emilee Arrieta Work Phone: [facility] Work Phone: Start: 11-21-2022 End: 11-21-2022 Patient encounter procedure MD Emilee Arrieta Work Phone: [facility]-Ultrasound [place] Work Phone: Start: 05-24-2022 ambulatory Gideon VELASQUEZ Facility : [facility] Start: 05-10-2022 End: 05-10-[address] EMILEE ARRIETA Facility: Start: 02-08-2022 Adult health examination Allison Iglesias Other [facility] [employer] Other Procedures Date Procedure Procedure Detail Performing Clinician Start: 10-14-2023 Ankle brachial press ure index MD Emilee Arrieta Work Phone: Start: 04-14-2023 Ankle brachial press ure index MD Emilee Arrieta Work Phone: Plan of Treatment Date Care Activity Detail Author Start: 11-21-2022 Pulse volume recorder pneumoplethysmography US arterial pvr rest [facility] XR Thoracic spine 3 Views [facility] Payers Date Payer Category Payer Unknown 2022 Self-pay [id number] 1958 Medicaid [id number] 1958 Unknown [id number] 1955 Unknown [id number] [id number] 1955 Unknown [id number] 1955 Unknown [id number] 2.16. [id number] 1955 Unknown [id number] 2.16. [id number] Unknown [id number] Unknown [id number] 2.16.8 [id number] Unknown [id number] 2.16.8 [id number] Social History Date Type Detail Facility Start: 01-22-2018 End: 10-14-2023 Tobacco smoking status NHIS Smoker (finding) [facility] Start: 1955 Sex Assigned At Female F [facility] Sex Assigned At Sex Assigned At Bir th [facility] Other Medical Equipment Procedure Code Equipment Code [...] concerns whatsoever. Apr, Claudication (ICD-10 - I73.9) [facility] Other Evaluation note 01-06-2023 Note Date & [...] down to about 5 cigarettes a day. [facility] [employer] Other Evaluation note Note Date & Type Note Facility Evaluation note No assessment information availa [facility] Work Phone: Evaluation note Note Date & Type Note Facility Evaluation note No Information [facility] [employer] Other Evaluation note Note Date & Type Note Facility Evaluation note Diagnosis Onset Date Current every day smoker acu te PAD (peripheral artery disease) acute [facility] Work Phone: Evaluation note Note Date & Type Note Facility Evaluation note Diagnosis Onset Date Current every day smoker acu te PAD (peripheral artery disease) acute Post herpetic neuralgia acmt e [facility] Work Phone: Evaluation note Note Date & Type Note Facility Evaluation note Diagnosis Onset Date Post herpetic neuralgia acut e Thoracic radiculitis [facility] Work Phone: History general Narrative - Reported Note Date & Type Note Facility History general Narrative - Reported Type Medical History hypotension [facility] Other History general Narrative - Reported Note [...] Cataract surgery 10/2015, Problem Status : Active, [facility] Other Summary Purpose Family History No Family [...] section and content) DATE CREATED AUTHOR 05/20/2022 [facility] DATE CREATED AUTHOR AUTHOR'S ORGANIZ ATION 06/26/2022 [facility] DATE CREATED AUTHOR AUTHOR'S ORGANIZ ATION 10/15/2023 [facility] DATE CREATED AUTHOR AUTHOR'S ORGANIZ ATION 04/12/2024 [facility] Care Teams (unrecognized sec tion and [...] BE BASED ON THE PRIMARY CLINICAL RECORDS. [email or web address] provides no warranty or guarantee of the accuracy or completeness of information in this document.
--- NOTE | 2024-05-05 08:55 | P.CN_ITS ---
Consult Note: HPI Data of Consult Patient: known to practice within the last 3 years Consult date: 03/01/24 Requesting Physician: Charley Cameron NP Primary Care Provider: Emilee Mobley MD Consult Narrative Reason for consult: thoracic pain Narrative: 68yof who presents for evaluation. >6 months of radiating thoracic pain into left breast initially, now also into right breast. denies any inciting event. does endorse history of shingles with thoracic manifestation, but states rash was lower than her current area of pain. thoracic xr does not show any significant pathology. recent thoracic MRI unremarkable. has tried tramadol, with some benefit. has engaged in provider directed home exercises >6 weeks, without lasting benefit. denies adverse med side effects. gabapentin 200mg am and 200mg hs with mild relief. finding significant relief with transdermal therapeutics compound cream, but insurance would not cover so pt purchased out of pocket. recently underwent bilateral T6,7,8 intercostal nerve block with 80% improvement in pain and functional ability for one day, however pt reports the procedure was extremely difficult to tolerate. cc:: CC: Charley Cameron NP Review of Systems ROS Status of ROS 10 or more systems reviewed and unremark able except as noted in history and below [facility] Medical History (Updated 04/14/24 @ 10:28 by Charley Cameron NP) Hypotension ?I95.9 - Hypotension, unspecified (ICD-10) Meds Home Medications and Allergies Home Medications ?Medication ?Instructions ?Recorded ?Confirmed ?Type amlodipine 2.5 mg tablet 2.5 mg PO DAILY 03/01/24 04/26/24 History aspirin 81 mg tablet,delayed 81 mg PO DAILY 03/01/24 04/26/24 History release (Adult Aspirin Regimen) atorvastatin 20 mg tablet 20 mg PO DAILY 03/01/24 04/26/24 History gabapentin 300 mg capsule 300 mg PO TID #90 caps 03/01/24 04/26/24 Rx Allergies Allergy/AdvReac Type Severity Reaction Status Date / Time No Known Drug Allergies Allergy Verified 04/26/24 08:37 Exam Narrative Exam Narrative: Psych-alert and oriented x 3. Attentive and appropriate, constitutionally normal, displays normal mood and affect per situation. There are no obvious deficits in memory, reasoning, or intellect.? Skin-no obvious rashes, bruising, erythema noted to the patient's area of pain.? Extremities- extremities are warm with minimal edema and palpable pulses. Thoracic-tenderness to palpation noted in the thoracic spine and paraspinal musculature. Pain is not elicited with flexion, extension, and lateral rotation of the lumbar spine. Range of motion is not diminished with these motions. Facet loading maneuvers are negative.? Sensory-no notable sensory deficits in the bilateral lower extremities to touch or pinprick in all dermatomal distributions with the exception to decreased sensation to the bilateral T6, 7, 8 dermatomal distribution Coordination remains intact.? Gait remains non-antalgic Results Additional Findings Additional findings: If on a controlled substance or opioids, I have checked an [place]AR[place] report on this patient and there are no aberrancies noted in the prescribing history.??If on a controlled substance or opioid a drug screen was completed and reviewed within the last year, and if there has not been a drug screen completed we ordered one today to monitor higher risk, state monitored pain medication use. As part of providing excellent, safe, comprehensive care, the following was completed at our patient's visit: 1. A medication reconciliation and review to ensure accurate knowledge of current/active medications, including asking our patients to inform us about any [id number] medications or herbal remedies/nutritional supplements/alternative remedies. 2. A review to specifically ensure our patients have had annual screening for screening for depression, screening for tobacco use, and screening for unhealthy alcohol use. For concerning screenings had a discussion with the patient, provided patient education, and recommended follow-up with primary care provider when appropriate. If patient noted with a risk of falling, they received education on strength, gait, and balance training to prevent future risk of falling. Assessment and Plan Assessment and Plan (1) Intercostal neuralgia: (2) Post herpetic neuralgia: (3) Thoracic radiculopathy: Plan left then right T6,7 T7,8 intercostal nerve RFA change gabapentin 200mg AM and 200mg HS, can increase to TID as tolerated continue transdermal therapeutics 6a TID-QID to affected area for PHN and intercostal neuralgia f/u 1 month after RFAs complete
== END 2024-05-05 08:42 | disposition home or self-care (01) ==
LOC: PM 08:41
PROVIDERS: PCP Family Medicine; Visit Provider Nurse Practitioner
DX: G58.0 Intercostal neuropathy (principal); B02.29 Other postherpetic nervous system involvement; M54.14 Radiculopathy, thoracic region
CPT/HCPCS: G0463

== ENCOUNTER 2024-06-21 07:56 | Day surgery (SDC) | payer MEDICARE, MEDICAID, SELFPAY ==
[2024-06-21 08:30] VITALS: BP 108/73; PULSE 98; TEMP 36.3; O2SAT 99
[2024-06-21] MEDS: 0.9 % SODIUM CHLORIDE 500 ML 50 ML IV (09:00)
[2024-06-21] MEDS: DEXAMETHASONE SOD PHOS 10 MG/ML VIAL INJ (09:32)
[2024-06-21] MEDS: LIDOCAINE HCL 2% 400 MG/20 ML MDV 5 ML INJ (09:32)
[2024-06-21] MEDS: BUPIVACAINE HCL 0.25% PF 25 MG/10 ML VIAL 2 ML INJ (09:32)
[2024-06-21 09:35] VITALS: BP 98/64; PULSE 83; TEMP 36.3; O2SAT 100
[2024-06-21 09:41] VITALS: BP 110/66; PULSE 80; O2SAT 99
--- NOTE | 2024-06-21 09:41 | P.ON_ITS ---
Date of procedure: 06/21/24 Pre-op diagnosis: Pain due to intercostal neuralgia Post-op diagnosis: same as pre-op Procedure: Procedure: Right T6, 7, 8 intercostal nerve radiofrequency ablation Medications: Bupivacaine 0.25% 3cc, lidocaine 2% 3cc, kenalog 40mg The patient was seen and examined in the preoperative holding area.? The site was marked.? Written informed consent was obtained and placed on the chart.? The patient was brought to the medical procedure unit and placed in the prone position.? A timeout was completed verifying correct patient, procedure, positioning, and special requirements.? The skin overlying the target point were prepped and draped in the usual sterile fashion.? The target point was achieved with a 20-gauge 15 cm with a 10 mm curved active tip radiofrequency cannula under direct fluoroscopic visualization.? The needle was inserted at level T6 on the right side. Motor stimulation was carried out at 2 Hz up to 5 volts with the absence of extremity activity.? This was repeated at level T7, 8 on right side.?? Sensory stimulation was carried out.? Concordant pain was realized at the above- mentioned sites.? Then radiofrequency lesioning was carried out times 90 seconds at 80 degrees times 2 lesions at each level.? The radiofrequency probe was removed prior to cannula removal.? The above-mentioned injectate was placed in 1 mL increments.? The needle was removed.? Insertion sites were covered.? The patient was taken to the postoperative recovery area and monitored for an appropriate length of time before being found suitable for discharge in the company of a responsible adult. Anesthesia: MAC Surgeon: Michaela Delgado Pathology: none sent Condition: stable Disposition: no change
== END 2024-06-21 09:56 | disposition home or self-care (01) ==
PROVIDERS: PCP Family Medicine; Visit Provider Anesthesiology
PROC: (CPT 1992; principal; 2024-06-21 09:10)
DX: G58.0 Intercostal neuropathy (principal)
CPT/HCPCS: 64620; J0665; J1100; J2704

== ENCOUNTER 2024-07-05 06:48 | Day surgery (SDC) | payer MEDICARE, MEDICAID, SELFPAY ==
--- OUTSIDE RECORDS SUMMARY | 2024-07-05 06:50 | XMS_ITS | CCD ---
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 Name Role Phone Gideon VELASQUEZ Attending Unavailable DR EMILEE ARRIETA Primary Care Unavailable PAY, DR TAYLOR Admitting Unavailable PAY, DR TAYLOR Attending Unavailable PAY, DR TAYLOR Consulting Unavailable MD Emilee Arrieta Primary Care Provider [phone] MD Emilee Arrieta Attending Provider [phone] Allison Iglesias Unavailable MD Emilee Arrieta Primary [...] Unavailable Danny WALLACE, Michaela Galo Attending Unavailable Danny WALLACE, Michaela Galo Attending Unavailable Danny WALLACE, Michaela Galo Attending Unavailable Allergies Allergy Classification Reported Allergen(s) Allergy Type Date of Onset Reaction(s) Facility (1 source) Contrast media; Translations: [Contrast Dye] Propensity to adverse reactions (disorder) [facility] Repository (1 source) Iodine (And Iodine Containting Drugs) Drug allergy (disorder) [facility] Repository Medications Current Medications Medication Drug Class(es) [...] Start; Refills: 1; Qty: 90 Tablet; Provider: Leandra Hebert ( ) take 1 tablet by [...] 4:08pm Start: 01-06-2023 take 1 tablet by roble th every twenty-four hours Atorvastatin Calcium 20 [...] Discontinued 50 MG PO Twice daily 60 30 October 24, 2023 12:00am November 25, 2023 [...] and other heart disease; Translations: [Atherosclerosis of [place] arteries of extremities with intermittent claudication, bilateral legs] Onset: 04-14-2023 Glaucoma (1 source) Unspecified glaucoma; Translations: [Unspecified glaucoma] Onset: 09-08-2015 Chronic Hemorrhoids (1 source) Hemorrhoids; Translations: [Unspecified hemorrhoids] Episodic Other aftercare (1 source) Other long term care pharmacist (current) drug therapy; Translations: [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] Onset: 05-13-2022 Episodic Other [...] US ankle/arm indiceson 10-13 US ankle/arm indices [place] [address] Ultrasound Report Signed Patient: Ellie Montaño MR#: [id number] : 1955 Acct:[id number] Age/Sex: 68 / F ADM Date: 10/14/23 Loc: [facility] Room: Type: [facility] Attending Dr: Allison Iglesias 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 NURSE-C Ordering Provider: Allison Iglesias APRN Date of [...] Mark Bray M.D.10/14/2023 9:33 AM Dictation Location: [place] [address] Tech: Abril Barbour Transcribed By: RUBY 10/14/23932 Dictated By: Mark Bray MD 10/14/23932 Signed By: 10/14/23932 Normal [facility] US ankle/arm indiceson 04-14 US ankle/arm indices [facility] [place] [address] [place] [address] Ultrasound Report Signed Patient: Ellie Montaño MR#: [id number] : 1955 Acct:[id number] Age/Sex: 67 / F ADM Date: 04/14/23 Loc: [facility] Room: Type: [facility] Attending Dr: Allison Iglesias 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 NURSE-C Ordering Provider: Allison Iglesias APRN Date of [...] Mark Bray M.D.04/14/2023 2:43 PM Dictation Location: [place] [address] Tech: Luda Nica Transcribed By: RUBY 04/14/23 1443 Dictated By: Mark Bray MD 04/14/23 144 Signed By: 04/14/23 144 [facility] US arterial pvr rest Joanne US arterial pvr rest LE [facility] Main [place] [id number] Ultrasound Report Signed Patient: Ellie Montaño MR#: [id number] 899 : 1955 Acct:[id number] Age/Sex: 67 / F ADM Date: 11/21/22 Loc: Room: Type: [facility] Attending Dr: Emilee Arrieta MD Ordering [...] John Bell MD11/25/2022 2:52 PM Dictation Location: [facility] Tech: Hailey Haddad Transcribed By: RUBY 11/25/221451 Dictated By: John Bell MD 11/25/221450 Signed By: 11/25/221451 [facility] ED Note-Physicianon 05-20-20 ED Note-Physician [id number] 0CD:[id number] Normal [facility] Vital Signs Date Time Vital Sign Value Performing Clinician Facility 02-11-2024 10:54-0400 Body height 162.56 cm [facility] 02-11-2024 10:54-0400 Body mass index (BMI) [Ratio] 19 kg/m2 [facility] 02-11-2024 10:54-0400 Body weight 50.34 kg [facility] 02-11-2024 10:54-0400 Diastolic blood pressure 74 mm[Hg] [facility] 02-11-2024 10:54-0400 Heart rate 115 /min [facility] 02-11-2024 10:54-0400 Systolic blood pressure 118 mm[Hg] [facility] 11-25-2023 11:44-0400 Body height 162.56 cm [facility] 11-25-2023 11:44-0400 Body mass index (BMI) [Ratio] 19.9 kg/m2 [facility] 11-25-2023 11:44-0400 Body weight 52.61 kg [facility] 11-25-2023 11:44-0400 Diastolic blood pressure 82 mm[Hg] [facility] 11-25-2023 11:44-0400 Heart rate 91 /min [facility] 11-25-2023 11:44-0400 Systolic blood pressure 130 [...] Body height 165.1 cm Allison Iglesias Other [facility] Other 04-14-2023 09:30-0400 Body mass index (BMI) [Ratio] 17.47 kg/m2 Allison Wildo Other [facility] Other 04-14-2023 09:30-0400 Body temperature 96.4 [degF] Allison Healytino Other [facility] Other 04-14-2023 09:30-0400 Body weight 47.63 kg Allison Wildo Other [facility] Other 04-14-2023 09:30-0400 Diastolic blood pressure 74 mm[Hg] Allison Wildo Other [facility] Other 04-14-2023 09:30-0400 SaO2% (BldA) [Mass fraction] 99 % Allison Wildo Other [facility] Other 04-14-2023 09:30-0400 Systolic blood pressure 110 mm[Hg] Allison Wildo Other [facility] Other 01-06-2023 13:30-0400 Body height 165.1 cm Allison Wildo Other [facility] Other 01-06-2023 13:30-0400 Body mass index (BMI) [Ratio] 17.47 kg/m2 Allison Healytino Other [facility] Other 01-06-2023 13:30-0400 Body temperature 97.3 [degF] Allison Healytino Other [facility] Other 01-06-2023 13:30-0400 Body weight 47.63 kg Allison Ruttino Other [facility] Other 01-06-2023 13:30-0400 Diastolic blood pressure 80 mm[Hg] Allison Iglesias Other [facility] Other 01-06-2023 13:30-0400 SaO2% (BldA) [Mass fraction] 99 % Allison Iglesias Other [facility] Other 01-06-2023 13:30-0400 Systolic blood pressure 122 mm[Hg] Allison Iglesias Other [facility] Other Encounters Encounter Date Encounter Type Care Provider Facility Start: 04-26-2024 End: 04-26-2024 ambulatory Michaela Delgado MD [facility]: [facility] Start: 04-05-2024 End: 04-05-2024 ambulatory Michaela Delgado MD [facility]: [facility] Start: 03-01-2024 End: 03-01-2024 ambulatory Michaela Delgado MD [facility]: [facility] Start: 02-11-2024 End: 02-11-2024 ambulatory [facility] Work Phone: Start: 02-11-2024 End: 02-11-2024 Patient encounter procedure [facility] Physician [facility] Work Phone: Start: 11-25-2023 End: 11-25-2023 Patient encounter procedure [facility] Physician [facility] Work Phone: Start: 10-24-2023 End: 10-24-2023 ambulatory MD Emilee Arrieta Work Phone: [facility] Work Phone: Start: 10-24-2023 End: 10-24-2023 Patient encounter procedure MD Emilee Arrieta Work Phone: [facility] Physician [facility] Work Phone: Start: 10-14-2023 End: 10-14-2023 ambulatory Emilee Arrieta Facility:[facility] Start: 10-14-2023 End: 10-14-2023 ambulatory MD Emilee Arrieta Work Phone: [facility] Work Phone: Start: 10-14-2023 End: 10-14-2023 Patient encounter procedure MD Emilee Arrieta Work Phone: [facility] Work Phone: Start: 10-08-2023 Non-patient / Non-visit MD Kristy Arrieta Work Phone: [facility] Work Phone: Start: 04-14-2023 End: 04-14-2023 Patient encounter procedure Allison Iglesias Other [facility]Ul[facility] Start: 04-14-2023 End: 04-14-2023 ambulatory Emilee Arrieta Facility:[facility] Start: 04-14-2023 End: 04-14-2023 ambulatory MD Emilee Arrieta Work Phone: [facility] Other Start: 01-06-2023 End: 01-06-2023 ambulatory Allison Iglesias Other [facility] Other Start: 01-06-2023 PENDING SALE TO [facility] visit new patient Allison Junito lee [facility] Start: 01-06-2023 Telephone encounter 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 Start: 11-21-2022 End: 11-21-2022 ambulatory Emilee Arrieta Facility:[facility] Start: 11-21-2022 End: 11-21-2022 ambulatory MD Emilee Arrieta Work Phone: [facility] Work Phone: Start: 11-21-2022 End: 11-21-2022 Patient encounter procedure MD Emilee Arrieta Work Phone: [facility] [place] Work Phone: Start: 05-24-2022 ambulatory Gideon Yip EVA Facility :[facility] Start: 05-10-2022 End: 05-10-[address] EMILEE ARRIETA Facility: Start: 02-08-2022 Adult health examination Allison Iglesias Other [facility] Other Procedures Date Procedure Procedure Detail Performing Clinician Start: 10-14-2023 Ankle brachial press ure index MD Emilee Arrieta Work Phone: Start: 04-14-2023 Ankle brachial press ure index MD Emilee Arrieta Work Phone: Plan of Treatment Date Care Activity Detail Author Start: 11-21-2022 Pulse volume recorder pneumoplethysmography US arterial pvr rest [facility] XR Thoracic spine 3 Views [facility] Payers Date Payer Category Payer Unknown 2022 Self-pay [id number] 1958 Medicaid [id number] 1958 Unknown [id number] 1955 Unknown [id number] 2.16.8 [id number] 1955 Unknown [id number] 2.16.84 [id number] 1955 Unknown [id number] 2.16. [id number] 1955 Unknown [id number] 2.16. [id number] 1955 Unknown [id number] 2.16. [id number] Unknown [id number] Unknown [id number] 2.16.8 [id number] Unknown [id number] 2.16.8 [id number] Social History Date Type Detail Facility Start: 01-22-2018 End: 10-14-2023 Tobacco smoking status MSIS Smoker (finding) [facility] Start: 1955 Sex Assigned At Female F [facility] Sex Assigned At Sex Assigned At Bir th [facility] Other Medical Equipment Procedure Code Equipment Code [...] concerns whatsoever. Apr, Claudication (ICD-10 - I73.9) [facility] Other Evaluation note 01-06-2023 Note Date & [...] down to about 5 cigarettes a day. [facility] Other Evaluation note Note Date & Type Note Facility Evaluation note No assessment information availa [facility] Work Phone: Evaluation note Note Date & Type Note Facility Evaluation note No Information [facility] Other Evaluation note Note Date & Type Note Facility Evaluation note Diagnosis Onset Date Current every day smoker acu te PAD (peripheral artery disease) acute [facility] Work Phone: Evaluation note Note Date & [...] Narrative - Reported Type Medical History hypotension [facility] Other History general Narrative - Reported Note [...] Cataract surgery 10/2015, Problem Status : Active, [facility] Other Summary Purpose Family History No Family [...] section and content) DATE CREATED AUTHOR [facility]/20/2022 [facility] DATE CREATED AUTHOR AUTHOR'S ORGANIZ ATION 06/26/2022 [facility] DATE CREATED AUTHOR AUTHOR'S ORGANIZ ATION 10/15/2023 [facility] DATE CREATED AUTHOR AUTHOR'S ORGANIZ ATION 05/12/2024 [facility] Care Teams (unrecognized sec tion and [...] BE BASED ON THE PRIMARY CLINICAL RECORDS. [email or web address] provides no warranty or guarantee of the accuracy or completeness of information in this document.
[2024-07-05 06:58] VITALS: BP 123/74; PULSE 68; TEMP 37; O2SAT 97
[2024-07-05] MEDS: 0.9 % SODIUM CHLORIDE 500 ML IV (07:20)
[2024-07-05] MEDS: DEXAMETHASONE SOD PHOS 10 MG/ML VIAL INJ (07:39)
[2024-07-05] MEDS: BUPIVACAINE HCL 0.25% PF 25 MG/10 ML VIAL 5 ML INJ (07:39)
[2024-07-05] MEDS: LIDOCAINE HCL 2% 400 MG/20 ML MDV 5 ML INJ (07:41)
--- NOTE | 2024-07-05 07:46 | P.ON_ITS ---
Date of procedure: 07/05/24 Pre-op diagnosis: Intercostal neuralgia Post-op diagnosis: same as pre-op Procedure: Procedure: Left T6, 7, 8 intercostal nerve radiofrequency ablation Medications: Bupivacaine 0.25% 2cc, dexamethasone 10mg, lidocaine 2% 3cc The patient was seen and examined in the preoperative holding area.? The site was marked.? Written informed consent was obtained and placed on the chart.? The patient was brought to the medical procedure unit and placed in the prone position.? A timeout was completed verifying correct patient, procedure, positioning, and special requirements.? The skin overlying the target point were prepped and draped in the usual sterile fashion.? The target point was achieved with a 20-gauge 15 cm with a 10 mm curved active tip radiofrequency cannula under direct fluoroscopic visualization.? The needle was inserted at level T6 on the left side. Motor stimulation was carried out at 2 Hz up to 5 volts with the absence of extremity activity.? This was repeated at level T7, 8 on left side.?? Sensory stimulation was carried out.? Concordant pain was realized at the above- mentioned sites.? Then pulsed radiofrequency lesioning was carried out times 90 seconds at 40 degrees times at each level.? The radiofrequency probe was removed prior to cannula removal.? The above-mentioned injectate was placed in 1 mL increments.? The needle was removed.? Insertion sites were covered.? The patient was taken to the postoperative recovery area and monitored for an appropriate length of time before being found suitable for discharge in the company of a responsible adult. Anesthesia: MAC Surgeon: Michaela Delgado Pathology: none sent Condition: stable Disposition: no change
[2024-07-05 07:51] VITALS: BP 83/60; PULSE 82; TEMP 36.3; O2SAT 100
[2024-07-05 07:59] VITALS: BP 124/60; PULSE 89; TEMP 36.3; O2SAT 98
== END 2024-07-05 08:15 | disposition home or self-care (01) ==
LOC: SURGOUT 06:48
PROVIDERS: PCP Family Medicine; Visit Provider Anesthesiology
PROC: (CPT 1992; principal; 2024-07-05 07:30)
DX: G58.0 Intercostal neuropathy (principal)
CPT/HCPCS: 64620; J0665; J1100; J2704

== ENCOUNTER 2024-08-11 08:55 | Outpatient (OUT) | payer MEDICARE, MEDICAID, SELFPAY ==
--- OUTSIDE RECORDS SUMMARY | 2024-08-11 09:07 | XMS_ITS | CCD ---
Author Organization [facility] Care Team Providers Care Manager Medical Name Role Phone Gideon VELASQUEZ Attending Unavailable MEENAKSHI, DR EMILEE Ohara Primary Care Unavailable PAY, DR TAYLOR Admitting Unavailable PAY, DR TAYLOR Attending Unavailable PAY, DR TAYLOR Consulting Unavailable MD Emilee Arrieta Primary Care Provider MD Emilee Arrieta Attending Provider Allison Iglesias Unavailable MD Emilee Arrieta Primary [...] Unavailable Danny WALLACE, Michaela Galo Attending Unavailable Giadeelitis , Andrius Clover Attending Unavailable Gieditis , Andrius Clover Attending Unavailable Giedraitis , Andrius Clover Attending Unavailable Gieditis , Andrius Galo Attending Unavailable Allergies Allergy Classification Reported Allergen(s) Allergy Type Date of Onset Reaction(s) Facility (1 source) Contrast media; Translations: [Contrast Dye] Propensity to adverse reactions (disorder) [facility] Repository (1 source) Iodine (And Iodine Containting Drugs) Drug allergy (disorder) [facility] Repository Medications Current Medications Medication Drug Class(es) Dates Sig (Normalized) Sig (Original) amLODIPine 2.5 mg oral tablet (6 sources) Dihydropyridine Calcium Channel [facility] Start: 12-01-2023 take 1 tablet by mouth once daily Amlodipine Active 0 .ROUTE .COMPLEX December 01, 2023 3:05pm TAKE 1 TABLET [...] once daily Atorvastatin Active 0 .ROUTE .COMPLEX October 08, 2023 4:08pm TAKE 1 TABLET [...] and other heart disease; Translations: [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, bilateral legs] Onset: 04-14-2023 Glaucoma (1 source) Unspecified glaucoma; Translations: [Unspecified glaucoma] Onset: 09-08-2015 Chronic Hemorrhoids (1 source) Hemorrhoids; Translations: [Unspecified hemorrhoids] Episodic Other aftercare (1 source) Other longterm (current) drug therapy; Translations: [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] Onset: 05-13-2022 Episodic Other [...] US ankle/arm indiceson 10-13 US ankle/arm indices [facility] [place] [address] [place] [address] Ultrasound Report Signed Patient: Ellie Montaño MR#: [id number] : 1955 Acct:[id number] Age/Sex: 68 / F ADM Date: 10/14/23 Loc: [facility] Room: Type: [facility] Attending Dr: Allison Iglesias MOSAIC TECHNICIAN-C Ordering Provider: Allison Iglesias APRN Date of [...] Mark Bray M.D.10/14/2023 9:33 AM Dictation Location: [place] [address] Tech: Abril Barbour Transcribed By: RUBY 10/14/23932 Dictated By: Mark Bray MD 10/14/23932 Signed By: 10/14/23932 Normal [facility] US ankle/arm indiceson 04-14 US ankle/arm indices [facility] [place] [address] [place] [address] Ultrasound Report Signed Patient: Ellie Montaño MR#: [id number] : 1955 Acct:[id number] Age/Sex: 67 / F ADM Date: 04/14/23 Loc: [facility] Room: Type: [facility] Attending Dr: Allison Iglesias MOSAIC TECHNICIAN-C Ordering Provider: Allison Iglesias APRN Date of [...] Mark Bray M.D.04/14/2023 2:43 PM Dictation Location: [place]- Tech: Luda Nica Transcribed By: RUBY 04/14/231442 Dictated By: Mark Bray MD 04/14/23 144 Signed By: 04/14/23 144 Normal [facility] US arterial pvr rest Joanne US arterial pvr rest [place] [facility] [address] Ultrasound Report Signed Patient: Ellie Montaño MR#: [id number] : 1955 Acct:[id number] Age/Sex: 67 / F ADM Date: 11/21/22 Loc: Room: Type: [facility] Attending Dr: Emilee Arrieta MD Ordering [...] John Bell MD11/25/2022 2:52 PM Dictation Location: [facility]- Tech: Hailey Haddad Transcribed By: RUBY 11/25/221451 Dictated By: John Bell MD 05/15/23 1451 Signed By: 11/25/22 1452 Normal [facility] ED Note-Physicianon 05-20-20 ED Note-Physician [id number] Normal [facility] Vital Signs Date Time Vital Sign Value Performing Clinician Facility 02-11-2024 10:54-0400 Body height 162.56 cm [facility] 02-11-2024 10:54-0400 Body mass index (BMI) [Ratio] 19 kg/m2 [facility] 02-11-2024 10:54-0400 Body weight 50.34 kg [facility] 02-11-2024 10:54-0400 Diastolic blood pressure 74 mm[Hg] [facility] 02-11-2024 10:54-0400 Heart rate 115 /min [facility] 02-11-2024 10:54-0400 Systolic blood pressure 118 mm[Hg] [facility] 11-25-2023 11:44-0400 Body height 162.56 cm [facility] 11-25-2023 11:44-0400 Body mass index (BMI) [Ratio] 19.9 kg/m2 [facility] 11-25-2023 11:44-0400 Body weight 52.61 kg [facility] 11-25-2023 11:44-0400 Diastolic blood pressure 82 mm[Hg] [facility] 11-25-2023 11:44-0400 Heart rate 91 /min [facility] 11-25-2023 11:44-0400 Systolic blood pressure 130 mm[Hg] [facility] 10-24-2023 13:24-0400 Body height 162.56 cm MD Emilee Arrieta Work Phone: [facility] 10-24-2023 13:24-0400 Body mass index (BMI) [Ratio] 19.9 kg/m2 MD Emilee Arrieta Work Phone: [facility] 10-24-2023 13:24-0400 Body weight 52.67 kg MD Emilee Arrieta Work Phone: [facility] 10-24-2023 13:24-0400 Diastolic blood pressure 78 mm[Hg] MD Emilee Arrieta Work Phone: [facility] 10-24-2023 13:24-0400 Heart rate 110 /min MD Emilee Arrieta Work Phone: [facility] 10-24-2023 13:24-0400 SaO2% (BldA) [Mass fraction] 99 % MD Emilee Arrieta Work Phone: [facility] 10-24-2023 13:24-0400 Systolic blood pressure 132 mm[Hg] MD Emilee Arrieta Work Phone: [facility] 10-14-2023 09:23-0400 Body height 162.56 cm MD Emilee Arrieta Work Phone: [facility] 10-14-2023 09:23-0400 Body mass index (BMI) [Ratio] 19.7 kg/m2 MD Emilee Arrieta Work Phone: [facility] 10-14-2023 09:23-0400 Body temperature 98 [degF] MD Emilee Arrieta Work Phone: [facility] 10-14-2023 09:23-0400 Body weight 52.16 kg MD Emilee Arrieta Work Phone: [facility] 10-14-2023 09:23-0400 Diastolic blood pressure 82 mm[Hg] MD Emilee Arrieta Work Phone: [facility] 10-14-2023 09:23-0400 Heart rate 70 /min MD Emilee Arrieta Work Phone: [facility] 10-14-2023 09:23-0400 SaO2% (BldA) [Mass fraction] 97 % MD Emilee Arrieta Work Phone: [facility] 10-14-2023 09:23-0400 Systolic blood pressure 140 mm[Hg] MD Emilee Arrieta Work Phone: [facility] 04-14-2023 09:30-0400 Body height 165.1 cm Allison Wildo Other [facility] Other 04-14-2023 09:30-0400 Body mass index (BMI) [Ratio] 17.47 kg/m2 Allison Wildo Other [facility] Other 04-14-2023 09:30-0400 Body temperature 96.4 [degF] Allison Healytino Other [facility] Other 04-14-2023 09:30-0400 Body weight 47.63 kg Allison Healycamerono Other [facility] Other 04-14-2023 09:30-0400 Diastolic blood pressure 74 mm[Hg] Allison Healycamerono Other [facility] Other 04-14-2023 09:30-0400 SaO2% (BldA) [Mass fraction] 99 % Allison Wildo Other [facility] Other 04-14-2023 09:30-0400 Systolic blood pressure 110 mm[Hg] Allison Healycamerono Other [facility] Other 01-06-2023 13:30-0400 Body height 165.1 cm Allison Wildo Other [facility] Other 01-06-2023 13:30-0400 Body mass index (BMI) [Ratio] 17.47 kg/m2 Allison Healytino Other [facility] Other 01-06-2023 13:30-0400 Body temperature 97.3 [degF] Allison Healycamerono Other [facility] Other 01-06-2023 13:30-0400 Body weight 47.63 kg Allison Iglesias Other [facility] Other 01-06-2023 13:30-0400 Diastolic blood pressure 80 mm[Hg] Allison Iglesias Other [facility] Other 01-06-2023 13:30-0400 SaO2% (BldA) [Mass fraction] 99 % Allison Iglesias Other [facility] Other 01-06-2023 13:30-0400 Systolic blood pressure 122 mm[Hg] Allison Iglesias Other [facility] Other Encounters Encounter Date Encounter Type Care Provider Facility Start: 07-05-2024 End: 07-05-2024 ambulatory Michaela Delgado MD [facility] Start: 06-21-2024 End: 06-21-2024 ambulatory Michaela Delgado MD [facility]: [facility] Start: 04-26-2024 End: 04-26-2024 ambulatory Michaela Delgado MD [facility]: [facility] Start: 04-05-2024 End: 04-05-2024 ambulatory Michaela Delgado MD [facility]: [facility] Start: 03-01-2024 End: 03-01-2024 ambulatory Michaela Delgado MD [facility]: [facility] Start: 02-11-2024 End: 02-11-2024 ambulatory [facility] Work Phone: Start: 02-11-2024 End: 02-11-2024 Patient encounter procedure [facility] Physician [facility] Work Phone: Start: 11-25-2023 End: 11-25-2023 Patient encounter procedure [facility] Work Phone: Start: 10-24-2023 End: 10-24-2023 ambulatory MD Emiele Arrieta Work Phone: [facility] Work Phone: Start: 10-24-2023 End: 10-24-2023 Patient encounter procedure MD Emilee Arrieta Work Phone: [facility] Work Phone: Start: 10-14-2023 End: 10-14-2023 ambulatory Emilee Arrieta Facility:[facility] Start: 10-14-2023 End: 10-14-2023 ambulatory MD Emilee Arrieta Work Phone: [facility] Work Phone: Start: 10-14-2023 End: 10-14-2023 Patient encounter procedure MD Emilee Arrieta Work Phone: [facility] Work Phone: Start: 10-08-2023 Non-patient / Non-visit MD Kristy Arrieta Work Phone: [facility] [employer] Work Phone: Start: 04-14-2023 End: 04-14-2023 Patient encounter procedure Allison Harris Other [facility] Start: 04-14-2023 End: 04-14-2023 ambulatory Emilee Arrieta Facility:[facility] Start: 04-14-2023 End: 04-14-2023 ambulatory MD Emilee Arrieta Work Phone: [facility] Other Start: 01-06-2023 End: 01-06-2023 ambulatory Allison Harris Other [facility] Other Start: 01-06-2023 FQ visit new patient Allison Healycameron lee [facility] Start: 01-06-2023 Telephone encounter Allison Macdonald [facility] Nurse Supervisor Start: 11-21-2022 End: 11-21-2022 ambulatory Emilee Arrieta Facility:[facility] Start: 11-21-2022 End: 11-21-2022 ambulatory MD Emilee Arrieta Work Phone: [facility] Work Phone: Start: 11-21-2022 End: 11-21-2022 Patient encounter procedure MD Emilee Arrieta Work Phone: [facility] [place] Work Phone: Start: 05-24-2022 ambulatory Gideon VELASQUEZ Facility :[facility] Start: 05-10-2022 End: 05-10-[address] EMILEE ARRIETA Facility: Start: 02-08-2022 Adult health examination Allison Iglesias Other [facility] Other Procedures Date Procedure Procedure Detail Performing Clinician Start: 10-14-2023 Ankle brachial press ure index MD Emilee Arrieta Work Phone: Start: 04-14-2023 Ankle brachial press ure index MD Emilee Arrieta Work Phone: Plan of Treatment Date Care Activity Detail Author Start: 11-21-2022 Pulse volume recorder pneumoplethysmography US arterial pvr rest [facility] XR Thoracic spine 3 Views [facility] Payers Date Payer Category Payer Unknown 2022 Self-pay [id number] 1958 Medicaid [id number] 1958 Unknown [id number] 1955 Unknown [id number] 2.16.8 [id number] 1955 Unknown [id number] 2.16.84 [id number] 1955 Unknown [id number] 2.16. [id number] 1955 Unknown [id number] 2.16. [id number] 1955 Unknown [id number] 2.16. [id number] 1955 Unknown [id number] 2.16. [id number] 1955 Unknown [id number] 2.16. [id number] Unknown [id number] Unknown [id number] 2.16.8 [id number] Unknown [id number] 2.16.8 [id number] Social History Date Type Detail Facility Start: 01-22-2018 End: 10-14-2023 Tobacco smoking status [facility] Smoker (finding) [facility] Start: 1955 Sex Assigned At Female F [facility] Sex Assigned At Sex Assigned At Bir th [facility] Other Medical Equipment Procedure Code Equipment Code [...] concerns whatsoever. Apr, Claudication (ICD-10 - I73.9) [facility] Other Evaluation note 01-06-2023 Note Date & [...] down to about 5 cigarettes a day. [facility] Other Evaluation note Note Date & Type Note Facility Evaluation note No assessment information availa ble [facility] Work Phone: Evaluation note Note Date & Type Note Facility Evaluation note No Information [facility] [employer] Other Evaluation note Note Date & Type Note Facility Evaluation note Diagnosis Onset Date Current every day smoker acu te PAD (peripheral artery disease) acute [facility] Work Phone: Evaluation note Note Date & Type Note Facility Evaluation note Diagnosis Onset Date Current every day smoker acu te PAD (peripheral artery disease) acute Post herpetic neuralgia acut e [facility] Work Phone: Evaluation note Note Date & Type Note Facility Evaluation note Diagnosis Onset Date Post herpetic neuralgia acut e Thoracic radiculitis acute [facility] Work Phone: History general Narrative - Reported Note Date & Type Note Facility History general Narrative - Reported Type Medical History hypotension [facility] Other History general Narrative - Reported Note [...] Cataract surgery 10/2015, Problem Status : Active, [facility] Other Summary Purpose Family History No Family [...] section and content) DATE CREATED AUTHOR 05/20/2022 [facility] DATE CREATED AUTHOR AUTHOR'S ORGANIZ ATION 06/26/2022 [facility] DATE CREATED AUTHOR AUTHOR'S ORGANIZ ATION 10/15/2023 [facility] DATE CREATED AUTHOR AUTHOR'S ORGANIZ ATION 07/09/2024 [facility] Care Teams (unrecognized sec tion and content) [...] 2023 Malaika Machado Attending Provider Active Start: M 2023 Team Status: Inactive Member Role Status [...] BE BASED ON THE PRIMARY CLINICAL RECORDS. [employer] provides no warranty or guarantee of the accuracy or completeness of information in this document.
--- NOTE | 2024-08-11 09:19 | P.CN_ITS ---
Consult Note: HPI Data of Consult Patient: known to practice within the last 3 years Requesting Physician: Charley Cameron NP Primary Care Provider: Emilee Mobley MD Consult Narrative Reason for consult: f/u Narrative: Ellie Montaño a pleasant 69 year old female presents for evaluation of chronic thoracic pain secondary to shingles. pain 4/10 dull, utilizing topical compound cream once daily as needed and currently tapering off of gabapentin per pt preference. recently underwent left and right T6,7 T7,8 intercostal RFA with 50- 80% improvement. pt no longer feels she needs the gabapentin. cc:: CC: Charley Cameron NP Review of Systems ROS Status of ROS 10 or more systems reviewed and unremark able except as noted in history and below [facility] Medical History (Updated 04/14/24 @ 10:28 by Charley Cameron NP) Hypotension ?I95.9 - Hypotension, unspecified (ICD-10) Meds Home Medications and Allergies Home Medications ?Medication ?Instructions ?Recorded ?Confirmed ?Type amlodipine 2.5 mg tablet 2.5 mg PO DAILY 03/01/24 07/05/24 History aspirin 81 mg tablet,delayed 81 mg PO DAILY 03/01/24 07/05/24 History release (Adult Aspirin Regimen) atorvastatin 20 mg tablet 20 mg PO DAILY 03/01/24 07/05/24 History gabapentin 300 mg capsule 300 mg PO TID #90 caps 03/01/24 07/05/24 Rx Allergies Allergy/AdvReac Type Severity Reaction Status Date / Time No Known Drug Allergies Allergy Verified 07/05/24 07:06 Exam Narrative Exam Narrative: Psych-alert and oriented x 3. Attentive and appropriate, constitutionally normal, displays normal mood and affect per situation. There are no obvious deficits in memory, reasoning, or intellect.? Skin-no obvious rashes, bruising, erythema noted to the patient's area of pain.? Extremities- extremities are warm with minimal edema and palpable pulses. Thoracic-tenderness to palpation noted in the thoracic spine and paraspinal musculature. Pain is not elicited with flexion, extension, and lateral rotation of the lumbar spine. Range of motion is not diminished with these motions. Facet loading maneuvers are negative.? Sensory-no notable sensory deficits in the bilateral lower extremities to touch or pinprick in all dermatomal distributions with the exception to decreased sensation to the bilateral T6, 7, 8 dermatomal distribution Coordination remains intact.? Gait remains non-antalgic Assessment and Plan Assessment and Plan (1) Intercostal neuralgia: (2) Post herpetic neuralgia: Plan DC gabapentin per pt preference continue topical compound cream up to QID PRN pain f/u 6 months, sooner if needed. should pt fail to benefit from RFAs detention can consider spinal cord stimulation
== END 2024-08-11 08:56 | disposition home or self-care (01) ==
LOC: PM 08:55
PROVIDERS: PCP Family Medicine; Visit Provider Nurse Practitioner
DX: G58.0 Intercostal neuropathy (principal); B02.29 Other postherpetic nervous system involvement
CPT/HCPCS: G0463

== ENCOUNTER 2025-01-24 09:46 | Outpatient (OUT) | payer MEDICARE, MEDICAID, SELFPAY ==
--- OUTSIDE RECORDS SUMMARY | 2018-09-10 09:30 | XMS_ITS | Continuity of Care Document ---
Author Organization [facility] Address [address] [place] [address] Phone Care Team Providers Care Supervisor [employer] Name Role Phone Octavio Miner DDS Unavailable Unavailable Allergies, Adverse Reactions, Alerts Substance Reaction Status Criticality No Known Allergies Active No Inform ation Medications Medication Instructions Dosage Effective Dates (start - stop) Status Comments Betimol 0.5 % eye drops instill 1 drop by ophthalmic route 2 times every day into affected eye(s) 1.00 drop - Active Procedures Procedure Date Panoramic Film Comp Oral Eval New/estab Patient 2018 Limited Oral Eval Extract; Erupted Th/exposted Rt 019 Extract; Erupted Th/exposted Rt 019 Treatment Completed OFFICE/OUTPATIENT VISIT, EST OFFICE/OUTPATIENT VISIT, EST PREVENTIVE NEW AGE 40-64 TDAP VACCINE >7 IM PREV VISIT, NEW, AGE 40-64 TDAP VACCINE >7 IM Advance Directives Directive Yes / No Effective Date File Name No Information Encounters Encounter Description Practice Location Reason(s) For Visit Diagnoses Date Provider Providers Copied on Encounter [facility], [address] [place] [address], [id number] , tel:[phone] Dental Clinic extraction (chief complaint) Encounter for screening for dental disorders 9 Kristofer Cunningham. [address] [place] [address], [id number], [place]. tel:[phone] OFFICE/OUTPA TIENT VISIT, EST [facility], [address], [place], [id number] , [place] tel: [phone] [facility] headache (chief complaint)c old symptoms (chief complaint) Sinusitis, AcuteHeadacheTobacc o AbuseLoss of weight 3 Hemmer Carmen. [address], [place], [id number], [place]. PREVENTIVE NEW AGE 40-64 [facility], [address], [place], [id number] , [place] tel: [phone] [facility] physical (work) (chief complaint) Health examination of defined subpopulationsTobac co AbuseNeed for prophylactic vaccination with combined diphtheria-tetanus- pertussis (DTP) (DTaP) vaccine 2 Hemmer Carmen. [address], [place], [id number], [place]. Family History Family Member Type Diagnosis Age At Onset Father Problem (finding) Mother Problem (finding) Immunizations Vaccine Date Status Comments Tdap administered Source: [facility] unization Record Payers Payer name Insurance type Covered democrat ID Authorrahul nieto(s) D Medicaid [facility] [id number] Social History Type Description Quantity Date Captured Comments Alcohol Use Details beer Caffeine Use Details tea 2 cups per day Tobacco Use Status Cigarette smoker Smoking Status Current every day smoker Smoking Tobacco Use Details Cigarette: No Details Available Cigarette: No Details Available Sex Female Sexual Orientation Straight or heterosexual Gender Identity Female Vital Signs Date / Time: Height Weight BMI Pulse Rate Blood Pressure Temperature Respiratory Rate Body Surface Area Head Circumference Head Circ. Percentile Wt./[place]. Percentile BMI percentile Pulse Ox Inhaled Ox 1:51 PM 77 /min 161/80 mm[Hg] Chief Complaint And Reason For Visit From encounter dated '09/10/2018 13:30'. extraction (chief complaint). Description: continue with treatment Reason For Referral Reason For Referral No Information Plan Of Treatment Date Type Action Status Goal Influenza Vaccine. Due on due Goal Breast exam. 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 Due on due Goal Mammogram. Due on 9 due Goal Colonoscopy. Due on due Goal H&P. Due on due Goal Depression screening. Due on due Goal FOBT. Due on due Goal Tdap due Goal Tobacco cessation counseling completed History Of Present Illness Encounter Date Complaint History Of Prese nt Illness extraction continue with tr eatment Functional Status Date Functional Assessmen t No Information Instructions Date Instruction Additional Infor mation No Information Assessments Type Assessment Date assessment Encounter for screening for dent al disorders Patient Care Teams Name Effective Dates (start - stop) Status Members No Information
--- OUTSIDE RECORDS SUMMARY | 2025-01-24 09:50 | XMS_ITS | Clinical Summary ---
Author Organization [facility] Healthcare Address [address] [place] [address] Care Team Providers Care Hand Brush Filler Name Role Phone Unavailable Primary Care Provider Unavailabl e Social History Tobacco Use Types Packs/Day Years Used Date Smoking Tobacco: Never Assessed Comments Unknown Sex and Gender Information Value Date Recorded Sex Assigned at Not on file Legal Sex Female 6:41 PM EDT Gender Identity Not on file Sexual Orientation Not on file Plan of Treatment Not on file
--- OUTSIDE RECORDS SUMMARY | 2025-01-24 10:08 | XMS_ITS | CCD ---
Author Organization [facility] Care Team Providers Care Die Try Out Worker Stamping Name Role Phone Gideon VELASQUEZ Attending Unavailable MEENAKSHI, DR EMILEE Ohara Primary Care Unavailable PAY, DR TAYLOR Admitting Unavailable PAY, DR TAYLOR Attending Unavailable PAY, DR TAYLOR Consulting Unavailable MD Emilee Arrieta Primary Care Provider [phone] MD Emilee Arrieta Attending Provider [phone] Allison Iglesias Unavailable MD Emilee Arrieta Primary Care Provider [phone] YAYA Iglesias Attending Provider MD Emilee Arrieta Primary Care Provider YAYA Iglesias Attending Provider Danny WALLACE, Michaela Galo Attending Unavailable Danny WALLACE, Andrius Clover Attending Unavailable Danny WALLACE, Andrius Vnava Attending Unavailable Danny WALLACE, Andrius Vnava Attending Unavailable Danny WALLACE, Andrius Vnava Attending Unavailable Emilee Arrieta MD Primary Care Provider Emilee Arrieta MD Attending Provider Emilee Arrieta Attending Unavailable Emilee Arrieta Admitting Unavailable Allergies Allergy Classification Reported Allergen(s) Allergy Type Date of Onset Reaction(s) Facility (1 source) Contrast media; Translations: [Contrast Dye] Propensity to adverse reactions (disorder) [facility] Repository (1 source) Iodine (And Iodine Containting Drugs) Drug allergy (disorder) [facility] Repository Medications Current Medications Medication Drug Class(es) Dates Sig (Normalized) Sig (Original) aspirin 81 mg chewable tablet (10 sources) Platelet Aggregation Inhibitor, Nonsteroidal Anti-inflammatory Drug Start: 10-08-2023 Start: 10-08-2023 Aspirin Active PO October 08, [...] Dec, Active latanoprost 0.05 mg/ml ophthalmic solution (8 sources) Prostaglandin Analog Start: 01-22-2018 take 1 dose into the eye(s) once daily at bedtime 24 hr oxybutynin chloride 5 mg extended release oral tablet (2 sources) Cholinergic Muscarinic Antagonist Start: 01-19-2025 take 1 tablet by mouth once daily Completed/Discontinued Medications Medication Drug Class(es) Dates Sig (Normalized) Sig (Original) amLODIPine 2.5 mg oral tablet (14 sources) Dihydropyridine Calcium Channel Kavita Start: 12-01-2023 End: 01-19-2025 take 1 tablet by mouth once daily Amlodipine 2.5 mg tablet Discontinued 0 .ROUTE .COMPLEX September 02, 2024 10:05am January 19, 2025 11:29am TAKE 1 TABLET BY MOUTH EVERY DAY Start: 10-24-2023 End: 12-01-2023 take 1 tablet by mouth once daily Amlodipine 2.5 mg tablet Discontinued 1 TAB PO Daily October 24, 2023 12:00am December 01, 2023 3:05pm FreeTextSig: TAKE 1 TABLET BY MOUTH EVERY DAY; Note: Source Status: Start; Refills: 1; Qty: 90 Tablet; Provider: Meenakshi Hebert ( ) take 1 tablet by robel th once daily amLODIPine Besylate 2.5 MG TAKE 1 TABLET BY MOUTH EVERY DAY for 90 Active atorvastatin 20 mg oral tablet (20 sources) HMG-CoA Reductase Inhibitor Start: 10-08-2023 End: 01-19-2025 take 1 tablet by mouth once daily Atorvastatin 20 mg tablet Discontinued 0 .ROUTE .COMPLEX June 21, 2024 10:26am January 19, 2025 11:29am TAKE 1 TABLET BY MOUTH EVERY DAY FOR 90 DAYS Start: 10-08-2023 End: 10-08-2023 Atorvastatin 20 mg tablet Discontinued MG PO October 08, 2023 12:00am October 08, 2023 4:08pm Start: 10-08-2023 End: 10-08-2023 Atorvastatin Discontinued MG PO October 08, 2023 12:00am October 08, 2023 4:08pm Start: 01-06-2023 take 1 tablet by robel every twenty-four hours Atorvastatin Calcium 20 MG 1 tablet Orally Once a day for 90 days Apr, Active cilostazol 50 mg oral tablet (7 sources) Phosphodiesterase 3 Inhibitor Start: 10-24-2023 End: 01-19-2025 take 1 tablet by mouth twice daily 30 minutes after breakfast Cilostazol 50 mg tablet Discontinued 50 MG PO Before breakfast and supper October 24, 2023 12:00am January 19, 2025 11:00am FreeTextSi tablet 30 minutes before or 2 hours after breakfast and dinner Orally Twice a day; Note: Source Status: Start; Refills: 3; Qty: 90 Tablet; Provider: Harris Cooper ( ) Start: 01-06-2023 take 1 tablet by robel every twelve hours Cilostazol 50 MG 1 tablet 30 minutes before or 2 hours after breakfast and dinner Orally Twice a day for 30 days Dec, Active lidocaine 0.05 mg/mg medicated patch (3 sources) Antiarrhythmic, Amide Local Anesthetic Start: 02-11-2024 End: 02-12-2024 apply 1 dose topically once daily Lidocaine 5 % adhesive patch,medicated Discontinued 2 PATCH TOPICAL Daily February 11, 2024 12:00am February 12, 2024 4:15pm leave on most painful area for up to 12 hrs ofloxacin 3 mg/ml ophthalmic solution (8 sources) Quinolone Antimicrobial Start: 01-22-2018 End: 10-24-2023 take 0.3 drop(s) into the eye(s) four times daily Ofloxacin 0.3 % drops Discontinued 1 DOSE OPHTHALMIC Four times daily January 22, 2018 12:00am October 24, 2023 1:30pm prednisoLONE acetate 10 mg/ml ophthalmic suspension (8 sources) Corticosteroid Start: 01-22-2018 End: 10-24-2023 take 1 dose into the eye(s) four times daily Prednisolone Acetate 1 % drops,suspension Discontinued 1 DOSE OPHTHALMIC Four times daily January 22, 2018 12:00am October 24, 2023 1:30pm pregabalin 50 mg oral capsule (4 sources) Start: 10-24-2023 End: 11-25-2023 take 1 capsule by mouth twice daily Pregabalin (Lyrica) 50 mg capsule Discontinued 50 MG PO Twice daily 60 30 October 24, 2023 12:00am November 25, 2023 11:50am traMADol hydrochloride 50 mg oral tablet (4 sources) Opioid Agonist Start: 02-12-2024 End: 01-19-2025 take 1 tablet by mouth twice daily as needed for pain Tramadol 50 mg tablet Discontinued 50 MG PO Twice daily as needed for pain 14 7 February 20, 2024 12:05pm January 19, 2025 11:00am valACYclovir 1000 mg oral tablet (6 sources) Herpesvirus Nucleoside Analog DNA Polymerase Inhibitor, Herpes Simplex Virus Nucleoside Analog DNA Polymerase Inhibitor, Herpes Zoster Virus Nucleoside Analog DNA Polymerase Inhibitor Start: 09-29-2023 End: 10-14-2023 Valacyclovir (Valtrex) 1 gram tablet Discontinued 1000 MG PO Every 8 hours September 29, 2023 12:00am October 14, 2023 9:26am Problems Active Problems Problem Classification Problem Date Documented Da te Episodic/Chronic Administrative/social admission (2 sources) Counseling procedure with explicit context; Translations: [Vaccine counseling] 01-19-2025 Episodic Anal and rectal conditions (5 sources) Other specified diseases of anus and rectum; Translations: [Rectal abscess] Onset: 05-10-2022 Episodic Anxiety disorders (1 source) Anxiety disorder; Translations: [Other specified anxiety disorders] Onset: 06-19-2016 Chronic Disorders of lipid metabolism (4 sources) Hyperlipidemia; Translations: [Hyperlipidemia, unspecified] 01-19-2025 Chronic Glaucoma (1 source) Unspecified glaucoma; Translations: [Unspecified glaucoma] Onset: 09-08-2015 Chronic Hemorrhoids (1 source) Hemorrhoids; Translations: [Unspecified hemorrhoids] Episodic Nonspecific chest pain (3 sources) Chest pain, unspecified; Translations: [Left sided chest pain] Onset: 07-09-2017 02-12-2024 Episodic Other aftercare (1 source) Other usp (current) drug therapy; Translations: [[facility] CURRENT DRUG THERAPY] Onset: 05-13-2022 Episodic Other [...] conditions (not mental disorders or infectious disease) (3 sources) Mammography abnormal; Translations: [Other abnormal and inconclusive findings on diagnostic imaging of breast] 12-02-2023 Episodic Peripheral and visceral atherosclerosis (20 sources) Intermittent claudication; Translations: [Peripheral vascular disease, unspecified] Chronic Residual codes; unclassified (1 source) Procedure not done; Translations: [Procedure and treatment not carried out because of patient's decision for unspecified reasons] Episodic Residual codes; unclassified (2 sources) Colon cancer screening declined; Translations: [Procedure and treatment not carried out because of patient's decision for unspecified reasons] 01-19-2025 Episodic Residual codes; unclassified (2 sources) Lung cancer screening declined; Translations: [Procedure and treatment not carried out because of patient's decision for unspecified reasons] 01-19-2025 Episodic Residual codes; unclassified (2 sources) Mammogram declined; Translations: [Procedure and treatment not carried out because of patient's decision for unspecified reasons] 01-19-2025 Episodic Spondylosis; intervertebral disc disorders; other back problems (5 sources) Thoracic radiculitis; Translations: [Radiculopathy, thoracic region] 02-11-2024 Episodic Substance-related disorders (15 sources) Smokes tobacco daily; Translations: [Nicotine dependence, unspecified, uncomplicated] Onset: 11-26-2018 Chronic Thyroid disorders (1 source) Non-toxic uninodular goiter; Translations: [Nontoxic single thyroid nodule] Onset: 12-08-2018 Chronic Viral infection (12 sources) Herpes zoster; Translations: [Zoster without complications] 10-14-2023 Episodic Past or Other Problems Problem Classification Problem Date Documented Da te Episodic/Chronic Unclassified (1 source) Routine general medical examination at health care facility; Translations: [Routine general medical examination at health care facility] Onset: 09-08-2015 Results Test Name Value Interpretation Reference Range Facil ity Creatinine [Mass/volume] in UrineOrdered By: Emilee Arrieta on 01-19-2025 Creatinine (U) [Mass/Vol] 37.00 mg/dL [facility] Comment on above: No reference range e stablished MicroAlb Creat Ratio,Uon Creatinine, Urine (Random) 37.00 mg/dL Normal [facility] Comment on above: Result Comment: No r eference range established Performed By: #### U RMACRERAT #### [facility] [address] Microalbumin/Creatin ine Ratio Not performed Normal 0.0-30.0 [facility] Comment on above: Result Comment: PERF ORMED BY: [place] [address] PATHOLOGIST [employer]ANCH MANAGER BOYD LEMA M.D. Performed By: #### U RMACRERAT #### [facility] [address] [place] [address] [place] Microalbumin [Mass/volume] i n UrineOrdered By: Emilee Arrieta on 01-19-2025 Albumin DL <= 20 mg/L (U) [Mass/Vol] mg/dL Normal 0.0-1.8 [facility] Comment on above: Performed By: #### U RMACRERAT #### [facility] [address] Urine microalbumin/creatinin e mass ratioOrdered By: Emilee Arrieta on 01-19-2025 Albumin/Creatinine DL <= 20 mg/L (U) [Mass ratio] TNP [facility] Comment on above: Test not performed ED Note-Physicianon 05-20-20 ED Note-Physician [id number]:127 Normal [facility] Vital Signs Date Time Vital Sign Value Performing Clinician Facility 01-19-2025 10:55-0400 Body height 162.56 cm Emilee Arrieta MD Work Phone: [facility] 01-19-2025 10:55-0400 Body mass index (BMI) [Ratio] 17 kg/m2 Emilee Arrieta MD Work Phone: [facility] 01-19-2025 10:55-0400 Body weight 45.01 kg Emilee Arrieta MD Work Phone: [facility] 01-19-2025 10:55-0400 Diastolic blood pressure 74 mm[Hg] Emilee Arrieta MD Work Phone: [facility] 01-19-2025 10:55-0400 Heart rate 82 /min Emilee Arrieta MD Work Phone: [facility] 01-19-2025 10:55-0400 Systolic blood pressure 127 mm[Hg] Emilee Arrieta MD Work Phone: [facility] 02-11-2024 10:54-0400 Body height 162.56 cm [facility] 02-11-2024 10:54-0400 Body mass index (BMI) [Ratio] 19 kg/m2 [facility] 02-11-2024 10:54-0400 Body weight 50.34 kg [facility] 02-11-2024 10:54-0400 Diastolic blood pressure 74 mm[Hg] [facility] 02-11-2024 10:54-0400 Heart rate 115 /min [facility] 02-11-2024 10:54-0400 Systolic blood pressure 118 mm[Hg] [facility] 11-25-2023 11:44-0400 Body height 162.56 cm [facility] 11-25-2023 11:44-0400 Body mass index (BMI) [Ratio] 19.9 kg/m2 [facility] 11-25-2023 11:44-0400 Body weight 52.61 kg [facility] 11-25-2023 11:44-0400 Diastolic blood pressure 82 mm[Hg] [facility] 11-25-2023 11:44-0400 Heart rate 91 /min [facility] 11-25-2023 11:44-0400 Systolic blood pressure 130 mm[Hg] [facility] 10-24-2023 13:24-0400 Body height 162.56 cm MD Emilee Arrieta Work Phone: [facility] 10-24-2023 13:24-0400 Body mass index (BMI) [Ratio] 19.9 kg/m2 MD Emilee Arrieta Work Phone: [facility] 10-24-2023 13:24-0400 Body weight 52.67 kg MD Emilee Arrieta Work Phone: [facility] 10-24-2023 13:24-0400 Diastolic blood pressure 78 mm[Hg] MD Emilee Arrieta Work Phone: [facility] 10-24-2023 13:24-0400 Heart rate 110 /min MD Emilee Arrieta Work Phone: [facility] 10-24-2023 13:24-0400 SaO2% (BldA) [Mass fraction] 99 % MD Emilee Arrieta Work Phone: [facility] 10-24-2023 13:24-0400 Systolic blood pressure 132 mm[Hg] MD Emilee Arrieta Work Phone: [facility] 10-14-2023 09:23-0400 Body height 162.56 cm MD Emilee Arrieta Work Phone: [facility] 10-14-2023 09:23-0400 Body mass index (BMI) [Ratio] 19.7 kg/m2 MD Emilee Arrieta Work Phone: [facility] 10-14-2023 09:23-0400 Body temperature 98 [degF] MD Emilee Arrieta Work Phone: [facility] 10-14-2023 09:23-0400 Body weight 52.16 kg MD Emilee Arrieta Work Phone: [facility] 10-14-2023 09:23-0400 Diastolic blood pressure 82 mm[Hg] MD Emilee Arrieta Work Phone: [facility] 10-14-2023 09:23-0400 Heart rate 70 /min MD Emilee Arrieta Work Phone: [facility] 10-14-2023 09:23-0400 SaO2% (BldA) [Mass fraction] 97 % MD Emilee Arrieta Work Phone: [facility] 10-14-2023 09:23-0400 Systolic blood pressure 140 mm[Hg] MD Emilee Arrieta Work Phone: [facility] 04-14-2023 09:30-0400 Body height 165.1 cm Allison Haelypatricia Other [facility] [employer] Other 04-14-2023 09:30-0400 Body mass index (BMI) [Ratio] 17.47 kg/m2 Allison Healypatricia Other [facility] Other 04-14-2023 09:30-0400 Body temperature 96.4 [degF] Allison Healycameronrosa Other [facility] Other 04-14-2023 09:30-0400 Body weight 47.63 kg Allison Healypatricia Other [facility] Other 04-14-2023 09:30-0400 Diastolic blood pressure 74 mm[Hg] Allison Healypatricia Other [facility] [employer] Other 04-14-2023 09:30-0400 SaO2% (BldA) [Mass fraction] 99 % Allison Healypatricia Other [facility] Other 04-14-2023 09:30-0400 Systolic blood pressure 110 mm[Hg] Allison Iglesias Other [facility] Other 01-06-2023 13:30-0400 Body height 165.1 cm Allison Iglesias Other [facility] Other 01-06-2023 13:30-0400 Body mass index (BMI) [Ratio] 17.47 kg/m2 Allison Iglesias Other [facility] Other 01-06-2023 13:30-0400 Body temperature 97.3 [degF] Allison Iglesias Other [facility] Other 01-06-2023 13:30-0400 Body weight 47.63 kg Allison Iglesias Other [facility] Other 01-06-2023 13:30-0400 Diastolic blood pressure 80 mm[Hg] Allison Iglesias Other [facility] Other 01-06-2023 13:30-0400 SaO2% (BldA) [Mass fraction] 99 % Allison Iglesias Other [facility] Other 01-06-2023 13:30-0400 Systolic blood pressure 122 mm[Hg] Allison Iglesias Other [facility] Other Encounters Encounter Date Encounter Type Care Provider Facility Start: 01-19-2025 Patient encounter procedure Emilee Arrieta MD Work Phone: [facility] Start: 01-19-2025 End: 01-19-2025 Departed Referred Emilee Arrieta MD -[facility] Work Phone: Start: 01-19-2025 End: 01-19-2025 ambulatory Emilee Arrieta MD Work Phone: [facility] Work Phone: Start: 01-19-2025 End: 01-19-2025 Patient encounter procedure Emilee Arrieta MD -[facility] Work Phone: Start: 07-05-2024 End: 07-05-2024 ambulatory Draganus Helenas Juliaitis Facility: [facility] Start: 06-21-2024 End: 06-21-2024 ambulatory Andsusanus Apolloytautas [facility] Start: 04-26-2024 End: 04-26-2024 ambulatory [facility] Clover [facility] Start: 04-05-2024 End: 04-05-2024 ambulatory [facility] Start: 03-01-2024 End: 03-01-2024 ambulatory Michaela Dumontitis Facility: [facility] Start: 02-11-2024 End: 02-11-2024 ambulatory [facility] Work Phone: Start: 02-11-2024 End: 02-11-2024 Patient encounter procedure [facility] Work Phone: Start: 11-25-2023 End: 11-25-2023 Patient encounter procedure [facility] Work Phone: Start: 10-24-2023 End: 10-24-2023 ambulatory MD Emilee Arrieta Work Phone: [facility] Work Phone: Start: 10-24-2023 End: 10-24-2023 Patient encounter procedure MD Emilee Arrieta Work Phone: [facility] Work Phone: Start: 10-14-2023 End: 10-14-2023 ambulatory MD Emilee Arrieta Work Phone: [facility] Work Phone: Start: 10-14-2023 End: 10-14-2023 Patient encounter procedure MD Emilee Arrieta Work Phone: [facility] V[facility] Surgery Work Phone: Start: 10-08-2023 Non-patient / Non-visit MD Kristy Arrieta Work Phone: [facility] Work Phone: Start: 04-14-2023 End: 04-14-2023 Patient encounter procedure Allison Iglesias Other [facility]-Ultras[facility] Start: 04-14-2023 End: 04-14-2023 ambulatory MD Emilee Arrieta Work Phone: [facility] Other Start: 01-06-2023 End: 01-06-2023 ambulatory Allison Iglesias Other [facility] Other Start: 01-06-2023 [facility] visit new patient Allison Wild rosa [facility] Vascular Surgery Start: 01-06-2023 Telephone encounter Allison Macdonald Foster Winder Start: 11-21-2022 End: 11-21-2022 ambulatory MD Emilee Arrieta Work Phone: [facility] Work Phone: Start: 11-21-2022 End: 11-21-2022 Patient encounter procedure MD Emilee Arrieta Work Phone: [facility] Work Phone: Start: 05-24-2022 ambulatory Gideon VELASQUEZ Facility :[facility] Start: 05-10-2022 End: 05-10-[address] EMILEE ARRIETA Facility: Start: 02-08-2022 Adult health examination Allison Iglesias Other [facility] Other Procedures Date Procedure Procedure Detail Performing Clinician Start: 10-14-2023 Ankle brachial press ure index MD Emilee Arrieta Work Phone: Start: 04-14-2023 Ankle brachial press ure index MD Emilee Arrieta Work Phone: Plan of Treatment Date Care Activity Detail Author Start: 11-21-2022 Pulse volume recorder pneumoplethysmography US arterial pvr rest LE [facility] Comprehensive metabo lic 2000 panel - Serum or Plasma [facility] XR Thoracic spine 3 Views [facility] Payers Date Payer Category Payer Unknown 2022 Medicaid 1958 Medicaid [id number] 1958 Unknown [id number] 1955 Unknown [id number] 1955 Unknown [id number] [id number] 1955 Unknown [id number] 2.16. [id number] 1956 Unknown [id number] 2.16. [id number] 1956 Unknown [id number] 2.16. [id number] 1956 Unknown [id number] 2.16. [id number] 1955 Unknown [id number] 2.16. [id number] Self-pay Self Pay [id number] Unknown [id number] Social History Date Type Detail Facility Start: 01-22-2018 End: 10-14-2023 Tobacco smoking status NHIS Smoker (finding) [facility] Start: 1955 Sex Assigned At Female F [facility] Sex Assigned At Sex Assigned At Bir th [facility] Other Start: 10-14-2023 Tobacco smoking status NHIS Smokes tobacco daily (finding) [facility] Sex Female (finding) [facility] Medical Equipment Procedure Code Equipment Code Equipment [...] LENS ACRYSOF IOL [id number] FDA Start: 01-22-2018 Clinical Notes 01-06-2023 to 01-19-2025 Note Date & Type Note Facility 01-19-2025 Evaluation note Diagnosis Onset Date Resolution Colon cancer screening declined acute January 19, 2025 10:54am Current every day smoker acute January 19, 2025 10:54am Hyperlipidemia acute January 19, 2025 10:54am Lung cancer screening declined by patient acute January 19 10:54am Mammogram declined acute January 192024 10:54am Medicare annual wellness visit, subsequent acute January 19, 2025 10:54am PAD (peripheral artery disease) acute January 19, 2025 10:54am Thoracic radiculitis acute January 19, 2025 10:54am Vaccine counseling acute January 192024 10:54am [facility] Work Phone: [phone]) 185-919310-02-2023 Evaluation note* Encounter Date Diagnosis Assessment Notes Treatment Notes Treatment Clinical Notes Apr, Current every day smoker (ICD-10 [...] concerns whatsoever. Apr, Claudication (ICD-10 - I73.9) [facility] Other 06-26-2023 Evaluation note* Encounter Date Diagnosis Assessment Notes Treatment Notes Treatment Clinical Notes Dec, Intermittent claudication (ICD-10 - I73.9) [...] down to about 5 cigarettes a day. [facility] Other Evaluation noteNo assessment information available [facility] Work Phone: [email or web address] noteNo InformationNort [employer] Other evaluation note* Diagnosis Onset Date Resolution Status Current every day smoker acu te PAD (peripheral artery disease) acute [facility] Work Phone: Evaluation note* Diagnosis Onset Date Resolution Status Current every day smoker acu te PAD (peripheral artery disease) acute Post herpetic neuralgia acut e [facility] Work Phone: evaluation note* Diagnosis Onset Date Resolution Status Post herpetic neuralgia acut e Thoracic radiculitis acute [facility] Work Phone: evaluation note* Diagnosis Onset Date Resolution Status Admit Date Current every day smoker acute January 19, 2025 10:54am Hyperlipidemia acute January 19, 2025 10:54am PAD (peripheral artery disease) acut e January 19, 2025 10:54am [facility] Work Phone: History general Narrative - Reported* Type Description Date Medical History hypotension [employer] Other Hisvigb general Narrative - Reported* Type Description Date Medical History hypotension Medical History PAD Surgical [...] Cataract surgery 10/2015, Problem Status : Active, [employer] Other Reason for referral (narrative)No reason for referral [facility] Work [facility]: Summary Purpose Family History No Family History [...] Complaint and Reason for Visit Chief Complaint Admit Date wellness January 19, 2025 10:54 am Reason for Visit Admit Date Colon cancer screening declined January 10:54am Current every day smoker January 19, 2025 10:54am Hyperlipidemia January 19, 2025 10:54 am Lung cancer screening declined by elbert iniguez January 19, 2025 10:54am Mammogram declined January 19, 2025 10:54 am Medicare annual wellness visit, dennis cates January 19, 2025 10:54am PAD (peripheral artery disease) January 10:54am Thoracic radiculitis January 19, 2025 10:5 4am Vaccine counseling January 19, 2025 10:54 am Chief Complaint i73.9 Chief Complaint I70.213 Chief [...] Visit Post herpetic neural ivy Thoracic radiculitis Reason for Visit Admit Date Current every day smoker January 19, 2025 10:54am Hyperlipidemia January 19, 2025 10:54 am PAD (peripheral artery disease) January 10:54am Additional Source Comments INFORMATION SOURCE (unrecogn ized section and content) DATE CREATED AUTHOR [facility]20/2022 [facility] DATE CREATED AUTHOR AUTHOR'S ORGANIZ ATION 06/26/2022 [facility] DATE CREATED AUTHOR AUTHOR'S ORGANIZ ATION 08/25/2024 [facility] [facility] DATE CREATED AUTHOR AUTHOR'S ORGANIZ ATION 01/24/2025 [facility] Care Teams (unrecognized sec tion and content) [...] October 14, 2023 End: October 14, 2023 ISAÍAS FaustC Attending Provider Active Start: October 14, 2023 End: October 14, 2023 Team Status: Inactive Member Role Status Dates Emilee Arrieta MD Primary Care Provide r, Attending Provider Active Start: October 24, 2023 End: October 24, 2023 Team Status: Inactive Member Role Status Dates Emilee Arrieta MD Primary Care Provider Active Start: January 19, 2025 End: January 19, 2025 Emilee Arrieta MD Attending Provider Active art: January 19, 2025 End: January 19, 2025 Team Status: Inactive Member Role Status Dates Emilee Arrieta MD Attending Provider Active art: January 19, 2025 End: January 19, 2025 Goals (unrecognized section and content) Goals may [...] BE BASED ON THE PRIMARY CLINICAL RECORDS. [facility] [employer] provides no warranty or guarantee of the accuracy or completeness of information in this document.
[2025-01-24 10:12] LABS: Hematocrit 42.7 % (36.0-48.0); Hemoglobin 14.3 g/dL (12.0-16.0); Immature Granulocytes Abs Auto 0.01 10^3/uL (0.00-0.03); Immature Granulocytes Pct Auto 0.2 % (0.0-0.5); Lymphocytes Absolute Auto 1.8 10^3/uL (1.2-3.8); Mean Corpuscular HGB Conc 33.5 g/dL (29.9-35.2); Mean Corpuscular Hemoglobin 31.4 pg (26.7-34.0); Mean Corpuscular Volume 93.6 fL (81.0-99.0); Platelet Count 299 10^3/uL (150-450); Red Blood Count 4.56 10^6/uL (4.20-5.40); White Blood Count 5.8 10^3/uL (4.0-11.0)
[2025-01-24 11:16] LABS: Alanine Aminotransferase 37 U/L (14-59); Albumin Globulin Ratio 1.0; Albumin Level 3.6 g/dL (3.4-5.0); Alkaline Phosphatase 115 U/L (46-116); Anion Gap 10.4; Aspartate Amino Transferase 25 U/L (15-37); Blood Urea Nitrogen 13.0 mg/dL (7.0-18.0); Calcium 10.0 mg/dL (8.5-10.1); Carbon Dioxide 30.1 mmol/L (21.0-32.0); Chloride 106 mmol/L (98-107); Cholesterol 145 mg/dL (<=200); Estimated GFR (African America >60 (>=60 mL/min/1.73m^2); Estimated GFR (Non-African Ame >60 (>=60 mL/min/1.73m^2); Globulin 3.6 g/dL; Glucose 106 mg/dL (74-106); HDL Cholesterol 85 mg/dL (40-60); Potassium 4.5 mmol/L (3.5-5.1); Sodium 142 mmol/L (136-145); Total Protein 7.2 g/dL (6.4-8.2); Triglycerides 123 mg/dL (<=150); VLDL CHOLESTEROL 24.6 mg/dL
== END 2025-01-24 09:47 | disposition home or self-care (01) ==
PROVIDERS: PCP Family Medicine; Visit Provider Family Medicine
DX: E78.5 Hyperlipidemia, unspecified (principal); I73.9 Peripheral vascular disease, unspecified
CPT/HCPCS: 36415; 80053; 80061; 85025